=== PATIENT | male | born 1940 | race Caucasian/White ===

== ENCOUNTER 2019-05-28 06:46 | Day surgery (SDC) | payer MEDICARE, OTHER, SELFPAY ==
[2019-05-25 12:41] VITALS: BMI 27.6
--- NOTE | 2019-05-25 12:45 | ECG_ITS ---
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 [email or web address]
--- NOTE | 2019-05-25 13:06 | ANES.PREANES ---
Pre-Anesthetic Assessment Pre-Anesthetic Assessment: Height/Weight: Height 1.73 m Weight 82.554 kg Proposed Procedure: Operation Date: 05/28/19 08:00 Proposed Procedures p Laparoscopic Inguinal Hernia Repair/possible open(Bilateral) - Caden Macias MD Social: Social History: No alcohol and No tobacco Exam: Pre-Anes Outpt Exam: alert, oriented x 3, clear to auscultation bilaterally and regular rate & rhythm Airway: Submandibular: WNL Cervical ROM: WNL MP: 2 Dentition: False CV/HEM: CV/HEM: CAD and MD : : None reported Hepatic: Hepatic: None reported GI: GI: GERD Metabolic: Metabolic: Hyperlipidemia Neuropsych: Neuropsych: Anxiety Anesthetic Plan: ASA status: III Anesthesia: Anesthesia Evaluation and General Risk of > 500 ml blood loss (7ml/kg in children): No PFSH Anesthesia PFSH: Medical History (Updated 05/25/19 @ 13:07 by Silvano Spear MD) Anxiety (Acute) Arthritis (Acute) Heart attack (Acute) History of fracture (Acute) Hypertension (Acute) Hypothyroidism (Acute) Severe hearing loss (Acute) Skin disease (Acute) Surgical History (Updated 05/25/19 @ 13:07 by Silvano Spear MD) History of appendectomy (Acute) History of shoulder replacement (Acute) History of tonsillectomy and adenoidectomy (Acute) History of umbilical hernia repair (Acute) Social History (Updated 05/25/19 @ 12:12 by Manda Londono) Smoking and tobacco status: former smoker Alcohol intake: never Substance/Drug Use: never Data Anesthesia Cardiac Studies: No Data to Display
[2019-05-28] VITALS (9 sets, daily range): BP systolic 138–162; BP diastolic 65–75; PULSE 75–80; RESP 15–20; TEMP 36.6–37.1; O2SAT 93–99
[2019-05-28] MEDS: sodium chloride 0.9% 1,000 ML 30 ML IV (07:54)
--- NOTE | 2019-05-28 10:55 | SUR.PHASEI ---
1049 PATIENT TO PACU VIA GURNEY AT THIS TIME FROM OR. RESPIRATIONS EVEN AND UNLABORED. PWD. 3 STABS TO ABDOMEN, CDI.
--- NOTE | 2019-05-28 11:00 | PM.OP ---
Operative Report Post-Operative Note: Date of procedure: 05/28/19 Preop Diagnosis: Bilateral reducible inguinal hernia Post-op diagnosis: same Post-op Findings: Bilateral indirect inguinal hernia Procedure Done: Laparoscopic total extraperitoneal repair of bilateral inguinal hernia with ultraPro 15 x 10 cm mesh x2 Pathology: none sent Anesthesia: general Estimated blood loss (mL): 20 Condition: stable Disposition: PACU Operative Report: Procedure: The patient was taken to the operating room. After IV antibiotic was administered, the abdomen was prepped and draped in a sterile manner. Using a 15 blade, a 1.0 cm transverse incision was made infraumbilically on the right side. Subcutaneous tissue was divided using electrocautery and the anterior rectus sheath divided using an 11 blade. The rectus muscle was retracted laterally and the extraperitoneal space identified. A 11 mm port was placed and 12 mm of pneumoperitoneum was created. A 10 mm 30? scope was introduced and the retrorectus space was opened using the camera up to the pubic symphysis and 5 mm ports were placed in the midline, one 2-fingerbreadths above the pubic symphysis and the other midway between these two ports under direct visualization. Blunt dissection was carried out to open up the tissue in the midline and to the pubic symphysis, which was identified. The dissection was then carried laterally on the right side where the iliopubic tract was identified. There was no femoral, obturator or direct hernia noted. The inferior epigastric artery was identified and dissection was carried posterior to it and laterally, the space was opened up to the level of the umbilicus superior to the anterior superior iliac spine. I then proceeded to dissect out the spermatic cord and the indirect hernial sac was reduced . I then moved to the other side and the dissection was then carried laterally on the left side where the iliopubic tract was identified. There was no femoral, obturator or direct hernia noted. The inferior epigastric artery was identified and dissection was carried posterior to it and laterally, the space was opened up to the level of the umbilicus superior to the anterior superior iliac spine. I then proceeded to dissect out the spermatic cord and the indirect hernial sac was reduced . 15 x 10cm Ultrapro mesh was rolled and introduced through the 10 mm port and then rolled laterally and apposed well against the abdominal wall to cover the myopectineal orifice completely and held in place with secure straps which was then repeated on the left side. 10 Cc of 0.5% Marcaine was infiltrated into the preperitoneal space. The extraperitoneal space was desufflated under direct visualization to ensure no slippage of hernial sac under the mesh. All ports were removed, the anterior rectus fascia at the infraumbilical port closed using figure of eight 0 Vicryl sutures, subcutaneous tissue approximated using 3-0 Vicryl sutures and skin at all three port sites were closed using running subcuticular 4-0 Monocryl sutures and Dermabond. 10 mL of 0.5% Marcaine was infiltrated at the port sites. The patient was stable throughout the procedure. Coding Level of Care Code Acute Inspector Outside Production for Arian Davis
[2019-05-28] MEDS: fentaNYL 50 mcg/mL INJ 2mL IVP ×2 (11:01→11:07)
--- NOTE | 2019-05-28 11:24 | SUR.PHASEI ---
1117 PATIENT TO OPS VIA GURNEY. A/OX3. RR EVEN AND UNLABORED. 3 STABS TO ABDOMEN, CDI.
[2019-05-28] MEDS: HYDROcodone-acetaminophen 5-325 mg Tablet 1 TAB PO (11:37)
--- NOTE | 2019-06-16 12:48 | PM.HPUD ---
H&P update H&P Update: DATE OF SURGERY/PROCEDURE: 05/28/19 DATE H&P PERFORMED: 05/11/19 H&P UPDATE INFORMATION: H&P completed within last 30 days and No changes to prior documentation PLANNED PROCEDURE: Operation Date: 05/28/19 08:30 Proposed Procedures p Laparoscopic Inguinal Hernia Repair/possible open(Bilateral) - Caden Macias MD Full H&P Perinent History: Medical/Surgical History: Medical History (Updated 06/12/19 @ 15:29 by Caden Macias MD) Anxiety (Acute) Arthritis (Acute) Heart attack (Acute) History of fracture (Acute) Hypertension (Acute) Hypothyroidism (Acute) Severe hearing loss (Acute) Skin disease (Acute) Social History: Social History Smoking and tobacco status: former smoker Alcohol intake: never
== END 2019-05-28 12:24 | disposition home or self-care (01) ==
PROVIDERS: Visit Provider Surgery
PROC: (CPT 49650; principal; 2019-05-28 08:30)
DX: K40.20 Bilateral inguinal hernia, without obstruction or gangrene, not specified as recurrent (principal); E03.9 Hypothyroidism, unspecified; I10 Essential (primary) hypertension; I25.10 Atherosclerotic heart disease of native coronary artery without angina pectoris; Z82.49 Family history of ischemic heart disease and other diseases of the circulatory system; Z83.3 Family history of diabetes mellitus; Z87.891 Personal history of nicotine dependence; Z79.82 Long term (current) use of aspirin; Z79.891 Long term (current) use of opiate analgesic; I25.2 Old myocardial infarction; E78.5 Hyperlipidemia, unspecified; F41.9 Anxiety disorder, unspecified; M19.90 Unspecified osteoarthritis, unspecified site
CPT/HCPCS: 49505; 12345; 93005; 99221; J0690; J2704; J3010; J3490; J7030

== ENCOUNTER → 2019-06-05 10:27 | Outpatient (BNVA) | payer MEDICARE, OTHER, SELFPAY | PROVIDERS: PCP Nurse Practitioner; Visit Provider Otolaryngology | DX: R42 Dizziness and giddiness (principal); H91.90 Unspecified hearing loss, unspecified ear | CPT/HCPCS: 99213; 99214 ==

== ENCOUNTER 2019-07-22 23:30 | Emergency (ER) | payer MEDICARE, OTHER, SELFPAY ==
[2019-07-22 23:40] VITALS: BP 153/77; PULSE 111; RESP 18; TEMP 36.9; O2SAT 96; BMI 27.9
== END 2019-07-22 23:50 | disposition left against medical advice (07) ==
LOC: ER 23:58
PROVIDERS: Emergency Provider Emergency Medicine; PCP Family Medicine
DX: I10 Essential (primary) hypertension (principal); Z53.21 Procedure and treatment not carried out due to patient leaving prior to being seen by health care provider
CPT/HCPCS: 99281; 99282

== ENCOUNTER 2019-11-16 07:23 | Outpatient (CLI) | payer MEDICARE, OTHER, SELFPAY ==
--- NOTE | 2019-11-16 08:00 | USCV_ITS ---
Landry Foster Age: 79 Gender: M : 1940 Exam Date: 11/16/2019 07:25 Ordering Phys: Guanako Munoz MD ([email or web address]) Technologist: Katia Campos [place] [facility] [place] STENOS[place] Risk Factors: Previous Vascular Surgery: Right Brachial BP: / Left Brachial BP: / Right Left Velocity (cm/s) Spectral Plaque Velocity (cm/s) Spectral Plaque Syst/Diast Broadening Syst/Diast Broadening 73.90/ 14.30 Prox CCA 71.70 / 15.40 92.60/ 14.30 Mid CCA 80.50 / 14.30 70.60/ 17.60 Distal CCA 88.20 / 13.20 81.60/ 11.00 Prox ICA 169.10/ 32.40 52.90/ 15.40 Mid ICA 107.90/ 23.40 102.50/35.30 Distal ICA 82.80 / 34.20 100.30 ECA 99.20 1.11 ICA/CCA 2.10 Antegrade Vertebral Antegrade 77.20/ 15.40 cm/s 72.00/ 7.20 cm/s Tri Subclavian Tri FINDINGS Minimal plaques of the right bifurcation and proximal carotid artery. Moderate to heavy heterogeneous plaques at the left bifurcation and proximal internal carotid artery Thickening in the common carotid arteries bilaterally. Antegrade flow in the vertebral arteries bilaterally. Normal Doppler flow velocities in the external carotid arteries bilaterally CONCLUSIONS Moderate to heavy heterogeneous plaques at the left bifurcation and proximal internal carotid arterywith velocity elevation consistent with 50-79% stenosis. Minimal plaques of the right bifurcation and proximal carotid artery. Compared to the study from 10/27/2018, there may not be a significant change Dr Guanako Munoz MD [facility] (Electronically Signed) Final Date: 16 November 2019 19:27 S
== END 2019-11-16 07:24 | disposition home or self-care (01) ==
LOC: US 07:25
PROVIDERS: PCP Family Medicine; Visit Provider Internal Medicine Cardiovascular Disease
DX: I65.23 Occlusion and stenosis of bilateral carotid arteries (principal)
CPT/HCPCS: 93880

== ENCOUNTER 2020-01-31 08:51 | Outpatient (CLI) | payer MEDICARE, OTHER, SELFPAY ==
[2020-01-31] MEDS: iohexol 300 mg/mL 50 mL Btl PO (09:39)
--- NOTE | 2020-01-31 10:30 | CT_ITS ---
WS: [id number] CT ABDOMEN AND PELVIS WITH CONTRAST HISTORY: abdominal pain TECHNIQUE: Imaging performed of the abdomen and pelvis with IV contrast. Single phase imaging of the abdomen. Coronal and sagittal reformats are submitted. All CT scans at [facility] use at least one of these dose optimization techniques: automated exposure control; mA and/or kV adjustment per patient size (includes targeted exams where dose is matched to clinical indication); or iterativ e reconstruction. IV CONTRAST: Omnipaque 300; 95 mL IV. Oral contrast: Yes. DLP: 1183.16 mGycm COMPARISON: None available. Lower thorax: Chronic emphysema the lung bases. No nodules or pneumonia. Heart size is normal. Small hiatal hernia. Oral contrast in the distal esophagus. Liver/biliary system: Normal size liver. There is mild central biliary duct dilatation. Common bile d uct is mildly dilated up to 9.2 mm. No mass at the pancreatic head or calcification. Gallbladder: Normal. No gallstones or wall thickening. No pericholecystic fluid. Pancreas: Atrophied pancreas. No mass. Spleen: Normal size with granulomata. Adrenal glands: Normal. Right kidney: Normal. Left kidney: Normal. Aorta: Moderate atherosclerosis of aorta. Significant amount of calcium at the aortic bifurcation and the proximal iliac arteries. Lymphadenopathy: None. Free fluid: None. GI tract: There is significant fecal retention and obstipation throughout the colon. No obstructing l esion or soft tissue mass identified. There are numerous diverticula in the descending and sigmoid co kiah. There is some very minimal rectal wall thickening which may be due to peristalsis or nondistenti on. There are additional high density foci within the colon at which are probably medicinal. Prior ap pendectomy. Abdominal wall: Very small abdominal wall hernia to the RIGHT of midline at the level of the umbilicu s. No herniation of GI tract. LEFT inguinal canal is patent containing fat only. Pelvis: No free fluid in the pelvis. Urinary bladder is well distended. Bones: Degenerative disc disease and osteophytes. CT/CT abdomen pelvis w con* [id number] IMPRESSION: 1. Severe diffuse constipation without focal obstructing lesion identified by CT. 2. Distal colonic diverticulosis without acute diverticulitis. 3. Moderate atherosclerosis aorta and common iliac arteries. 4. Mild central biliary dilatation with a mildly prominent common bile duct. N o pancreatic head mass or calcification identified to explain the dilatation.
[2020-01-31 10:55] LABS: Blood Urea Nitrogen 9 mg/dL (8-23)
[2020-01-31] MEDS: iohexol 300 mg/mL 100 mL Btl IV (11:01)
== END 2020-01-31 08:52 | disposition home or self-care (01) ==
LOC: RADWPI 08:58
PROVIDERS: PCP Family Medicine; Visit Provider Surgery
DX: K92.1 Melena (principal); R10.9 Unspecified abdominal pain; K59.00 Constipation, unspecified; K57.90 Diverticulosis of intestine, part unspecified, without perforation or abscess without bleeding; I70.0 Atherosclerosis of aorta; I70.8 Atherosclerosis of other arteries
CPT/HCPCS: 74177; 82565; 84520; Q9967

== ENCOUNTER 2020-02-21 22:25 | Emergency (ER) | payer MEDICARE, OTHER, SELFPAY ==
[2020-02-21 22:33] VITALS: BP 201/82; PULSE 102; RESP 18; TEMP 36.7; O2SAT 97; BMI 27.3
[2020-02-21 22:43] VITALS: BP 198/91; PULSE 103; RESP 18; O2SAT 97
--- NOTE | 2020-02-21 22:47 | ECG_ITS ---
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 Measurements Intervals [place] Rate: 100 P: 118 CT: 209 QRS: 44 QRSD: 122 T: -5 QT: 324 QTc: 418 Interpretive Statements SINUS TACHYCARDIA LEFT VENTRICULAR HYPERTROPHY AND ST-T CHANGE [VOLTAGE CRITERIA PLUS ST/T ABNORMALITY] Compared to ECG 05/25/2019 13:14:12 Left ventricular hypertrophy now present ST (T wave) deviation now present Sinus rhythm no longer present Myocardial infarct finding no longer present Electronically Signed On 02-22-2020 20:37:20 CDT by Kaylin Hall M.D. [id number]
--- NOTE | 2020-02-21 22:47 | XR_ITS ---
WS: [id number] Portable AP upright chest, 02/21/2020 Clinical Data: Weakness Comparison: PA and lateral chest, 04/25/2018. Findings: No nodules, masses or effusions are seen. The heart is normal. The pulmonary vascularity is not increased. No pneumonia or pneumothorax is seen. The aortic arch and descending aorta show calci fication and tortuosity. There are monitor leads on the chest wall. The patient has bilateral total s houlder prostheses. XR/XR chest 1V portable [id number] Impression: Atherosclerosis.
--- NOTE | 2020-02-21 22:55 | W.ED.GENADLT ---
HPI - General Adult General: Chief complaint: General Medical Stated complaint: blood pressure Time Seen by Provider: 02/21/20 22:43 Source: patient and family Mode of arrival: ambulatory Limitations: no limitations History of Present Illness: HPI narrative: Mr. Foster is a very nice 80-year-old male who comes in complaining of his blood pressure being elevated. Patient has a history of hard to control high blood pressure. Per the device of his doctor previously he did take a 0.1 clonidine p.o. before coming into the hospital but this was approximately 4 hours ago. Patient says he has a mild headache but it was not sudden onset thunderclap-like and he denies any dizziness, visual changes or any other neurologic problem. Patient denies any chest pain, shortness of breath, leg swelling or edema, fever chills or other complaint. He states solely because his blood pressure was elevated and did not go down with the clonidine which she had has always done in the past he felt that he should come to the hospital to be evaluated. Currently he says other than the minimal headache that he has he has no other symptoms. Associated symptoms: Reports headache(s); Deny chest pain, confusion, diaphoresis, dyspnea, malaise, nausea, rash, palpitations, syncope or vomiting Review of Systems Const: Denies: fever(s), chills, body aches, fatigue, malaise or diaphoresis Eyes: Denies: change in vision, blurry vision, photophobia, eye discomfort, eye discharge, eye redness or yellow eyes ENMT: Denies: throat pain, odynophagia, hoarseness, swelling of lips/tongue, ear or mastoid pain, ear discharge, change in hearing or nasal discharge Card: Denies: chest pain, palpitations, irregular heart rhythm, edema, lightheadedness, syncope, pre-syncope, dyspnea on exertion or orthopnea Resp: Denies: dyspnea, productive cough, non-productive cough, wheezing, hemoptysis or chest congestion GI: Denies: abdominal pain, nausea, vomiting, hematemesis, coffee ground emesis, heartburn, diarrhea, constipation, GI cramping, hematochezia or melena : Denies: flank pain, dysuria, urinary frequency, urinary urgency or hematuria Musc: Denies: neck pain, back pain, extremity pain, extremity swelling, joint pain, joint swelling, joint redness, joint warmth or joint stiffness Skin/Breast: Denies: rash, pruritus, erythema, skin pain or skin tenderness Neuro: Reports: headache(s); Denies: numbness in extremities, weakness in extremities, sensory changes, lack of coordination, difficulty walking, dizziness, vertigo, confusion, Slurred speech present or seizure-like activity Eddie/Lymph: Denies: easy bruising, easy bleeding, petechiae, purpura or enlarged lymph nodes All/Imm: Denies: urticaria, throat swelling, tongue swelling, facial swelling or acute wheezing PFSH ED PFSH: Medical History Anxiety Aortic stenosis Arrhythmia Arthritis Bilateral carotid artery stenosis Heart attack History of fracture Hypertension Hypothyroidism Pulmonary hypertension Severe hearing loss Skin disease Surgical History History of appendectomy History of shoulder replacement History of tonsillectomy and adenoidectomy History of umbilical hernia repair S/P bilateral inguinal hernia repair Status post colonoscopy Family History Other Diabetes Hypertension Denies family history of Anesthesia complication Bleeding disorder Social History Smoking and tobacco status: former smoker Alcohol intake: never Household members: spouse Marital status: Current occupational status: retired History of recent travel: No Physical Exam Const: COMMON NORMALS: no acute distress, patient oriented x3, no limitations and alert GENERAL APPEARANCE: cooperative HENMT: COMMON NORMALS: normocephalic, atraumatic, external ears normal, EAC's normal and Normal external nose present HEAD & SCALP: normal to inspection, normocephalic and atraumatic FACE & SINUS: normal facial exam and face symmetric NOSE: Normal external nose present and Normal nares present EXTERNAL EAR: Yes external ears normal EXTERNAL AUDITORY CANAL: EAC's normal MOUTH: Normal oral and palatal mucosa present, lip normal and tongue normal Eye: COMMON NORMALS: Equal, round and reactive pupils present and conjunctivae normal GENERAL EYE: appearance normal, both eyes and all related structures ALIGNMENT: Yes alignment normal PERIORBITAL: periorbital findings normal EYELID: eyelids normal CONJUNCTIVA: Yes conjunctivae normal SCLERA: sclerae normal PUPIL: Yes Equal, round and reactive pupils present Neck/C-Spine: COMMON NORMALS: full ROM, no lymphadenopathy, supple, no meningeal signs and no JVD GENERAL: Yes normal visual inspection and Yes trachea midline Chest: COMMONS NORMALS: normal inspection of the chest and normal palpation of entire chest wall Resp: COMMON NORMALS: normal respiratory effort, No retractions, No use of accessory muscles and clear to auscultation bilaterally EFFORT & INSPECTION: Yes able to speak in complete sentences and Yes symmetric chest movement AUSCULTATION: clear to auscultation bilaterally, no crackles, no rales, no rhonchi and no wheezes Cardio: COMMON NORMALS: no JVD, regular rate, regular rhythm, S1 normal heart sound present and S2 normal heart sound present RATE: regular rate RHYTHM: regular rhythm HEART SOUNDS: S1 normal heart sound present, S2 normal heart sound present, no click, no gallops, no murmurs and no rubs GI: COMMON NORMALS: Soft to palpation and No hepatosplenomegaly present PALPATION: Yes Soft to palpation, No Tenderness to palpation present (GI), No Guarding due to palpation present (GI), No Rigid due to palpation, Yes No hepatosplenomegaly present, No Hernia present, No Palpable mass present and No Pulsatile mass present : COMMON NORMALS: Yes no CVA tenderness BLADDER/KIDNEY EXAM: Yes no CVA tenderness Back/Pelvis: COMMON NORMALS: no CVA tenderness, thoracic and lumbar spine normal to inspection, no thoracic nor lumbar tenderness and thoraco-lumbar ROM normal Extremity: COMMON NORMALS: normal to inspection, full ROM, capillary refill normal, no joint enlargement, no clubbing, cyanosis or edema and no calf tenderness Neuro: COMMON NORMALS: patient oriented x3, CN's II-XII intact bilaterally, moves all extremities, no focal motor deficits and no sensory deficits noted SENSORIUM/ORIENTATION: Yes alert MENINGEAL SIGNS: Yes no meningeal signs SPEECH: speech normal Psych: COMMON NORMALS: mental status grossly normal, Normal thought process present, cooperative, normal affect, speech normal and activity/motor behavior normal SPEECH: Yes normal speech THOUGHT PROCESS: Normal thought process present Skin: COMMON NORMALS: no rashes or lesions noted, turgor normal, no jaundice, no petechiae and no mottling GENERAL SKIN EXAM: no rashes or lesions noted and turgor normal Course Vital Signs: Vital signs: Vital Signs Temperature 98.1 F 10/01/20 22:33 Pulse Rate 61 02/22/20 01:03 Respiratory Rate 15 02/22/20 01:03 Blood Pressure 126/61 02/22/20 01:03 Pulse Oximetry 97 02/22/20 01:03 MDM - General Adult MDM Narrative: Medical decision making narrative: Mr. Foster is a very nice 80-year-old male who comes in concerned about his high blood pressure. He believes he may have overexerted himself outside today and that caused his blood pressure to be elevated. He has never had chest pain, blurry vision, shortness of breath, edema or any other cardiac sounding complaint. Nonetheless because of the abnormal EKG and first elevated troponin I kept him for a second. His second troponin has gone up almost 6 points. Per the hospital chest pain pathway he needs either a 6-hour troponin or to be admitted for observation but this patient is never had chest pain. This could be a chronic elevation for him secondary to his high blood pressure. I have talked at length with the patient and his family about these findings. I have informed him I believe it would be safer to keep him for observation or at least a 6-hour troponin but he refuses. He states he has things to do and he feels fine and that his blood pressure is improved he wants to go home. I have made him aware that he is at risk of or severe permanent disability by leaving without complete evaluation but despite this the patient declines and wants to go home. He understands to be leaving AGAINST MEDICAL ADVICE and he does agree to return of his symptoms change or he develops any symptoms but at this time he is adamant he wants to go home. Patient clearly has the capacity to make this decision and has asked me multiple questions and reason that his mind that he is feeling well enough to go home without further evaluation. The patient has been warned but he has been welcomed to return. Lab Data: Labs: Lab Results 02/21/20 02/21/20 02/21/20 Range/Units 23:00 23:00 23:00 WBC 9.9 (4.0-10.0) 10^3/ uL RBC 3.81 L (4.1-5.3) 10^6/u L Hgb 11.7 (11.7-16.6) g/dL Hct 36.0 L (42.0-52.0) % MCV 94.5 H (80-94) fL MCH 30.7 (28.0-34.0) pg MCHC 32.5 (30.0-36.0) g/dL RDW 13.2 (12.1-15.1) % Plt Count 321 (130-400) 10^3/c mm MPV 10.5 H (7.4-10.4) fL Neut % (Auto) 78.6 % Lymph % (Auto) 10.0 % [place] % (Auto) 6.8 % Eos % (Auto) 3.5 % Baso % (Auto) 0.9 % Neut # (Auto) 7.80 H (1.8-7.7) 10^3/u L Lymph # (Auto) 1.0 (0.8-4.8) 10^3/u L [place] # (Auto) 0.7 (0.2-0.9) 10^3/u L Eos # (Auto) 0.4 (0.0-0.8) 10^3/u L Baso # (Auto) 0.1 (0.0-0.1) 10^3/u L Nucleated RBC % (a uto) 0 % Nucleated RBCs # 0.0 /100WBC Sodium 128 L (136-145) mmol/L Potassium 5.0 (3.5-5.1) mmol/L Chloride 94 L (98-107) mmol/L Carbon Dioxide 24 (22-29) mmol/L Anion Gap 15.0 (5-19) BUN 13 (8-23) mg/dL Creatinine 1.0 (0.7-1.2) mg/dL GFR Calculation Not Reportable Glucose 126 H (65-115) mg/dL Calculated Osmolal ity 268 L (285-295) mOsm/k g Calcium 9.7 (8.5-10.5) mg/dL Magnesium 2.2 (1.7-2.3) mg/dL Total Bilirubin 0.2 (0.15-1.2) mg/dL AST 32 (0-40) U/L ALT 21 (0-41) U/L Alkaline Phosphata se 121 (40-130) IU/L Troponin T Baselin e 35 H (0-15) ng/L Troponin T 120 Min emma (0-15) ng/L Delta Troponin T (0-10) ABS# Total Protein 7.4 (6.6-8.7) g/dL Albumin 4.9 (3.5-5.2) g/dL Globulin 2.5 (1.3-4.6) g/dL Urine Color (Yellow) Urine Appearance (CLEAR) Urine pH (5-7) Ur Specific Gravit y (1.005-1.030) Urine Protein (Negative) Urine Glucose (UA) (Normal) Urine Ketones (Negative) Urine Blood (Negative) Urine Nitrate (Negative) Urine Bilirubin (Negative) Urine Urobilinogen (Negative) mg/dL Ur Leukocyte Bailey ase (Negative) 02/21/20 02/22/20 Range/Units 23:22 00:27 WBC (4.0-10.0) 10^3/ uL RBC (4.1-5.3) 10^6/u L Hgb (11.7-16.6) g/dL Hct (42.0-52.0) % MCV (80-94) fL MCH (28.0-34.0) pg MCHC (30.0-36.0) g/dL RDW (12.1-15.1) % Plt Count (130-400) 10^3/c mm MPV (7.4-10.4) fL Neut % (Auto) % Lymph % (Auto) % [place] % (Auto) % Eos % (Auto) % Baso % (Auto) % Neut # (Auto) (1.8-7.7) 10^3/u L Lymph # (Auto) (0.8-4.8) 10^3/u L [place] # (Auto) (0.2-0.9) 10^3/u L Eos # (Auto) (0.0-0.8) 10^3/u L Baso # (Auto) (0.0-0.1) 10^3/u L Nucleated RBC % (a uto) % Nucleated RBCs # /100WBC Sodium (136-145) mmol/L Potassium (3.5-5.1) mmol/L Chloride (98-107) mmol/L Carbon Dioxide (22-29) mmol/L Anion Gap (5-19) BUN (8-23) mg/dL Creatinine (0.7-1.2) mg/dL GFR Calculation Glucose (65-115) mg/dL Calculated Osmolal ity (285-295) mOsm/k g Calcium (8.5-10.5) mg/dL Magnesium (1.7-2.3) mg/dL Total Bilirubin (0.15-1.2) mg/dL AST (0-40) U/L ALT (0-41) U/L Alkaline Phosphata se (40-130) IU/L Troponin T Baselin e (0-15) ng/L Troponin T 120 Min emma 40.99 H (0-15) ng/L Delta Troponin T 5.99 (0-10) ABS# Total Protein (6.6-8.7) g/dL Albumin (3.5-5.2) g/dL Globulin (1.3-4.6) g/dL Urine Color Straw (Yellow) Urine Appearance Clear (CLEAR) Urine pH 7 (5-7) Ur Specific Gravit y 1.005 (1.005-1.030) Urine Protein Neg (Negative) Urine Glucose (UA) Norm (Normal) Urine Ketones Negative (Negative) Urine Blood Neg (Negative) Urine Nitrate Negative (Negative) Urine Bilirubin Neg (Negative) Urine Urobilinogen Norm (Negative) mg/dL Ur Leukocyte Bailey ase Negative (Negative) Imaging Data^: CXR: Attestation: I personally reviewed and interpreted this imaging study as follows: My impression: No acute cardiopulmonary findings. EKG Data^: EKG 1: Attestation: I personally reviewed and interpreted this EKG as follows: EKG interpretation date: 02/21/20 EKG interpretation time: 21:47 Interpretation: Sinus tachycardia at 100 beats a minute, left ventricular hypertrophy with strain pattern, unchanged from previous. EKG 2: Attestation: I personally reviewed and interpreted this EKG as follows: EKG interpretation date: 02/22/20 EKG interpretation time: 23:28 Interpretation: Normal sinus rhythm at 63 beats a minute, LVH, nonspecific ST-T wave changes unchanged from previous. Discharge Plan Discharge Patient Disposition: Home Clinical Impression: Hyponatremia Hypertension Qualifiers: Hypertension type: essential hypertension Qualified Code(s): I10 - Essential (primary) hypertension Condition: Stable Prescriptions: No Action carvedilol 3.125 mg tablet 3.125 mg PO BID 30 Days Qty: 60 RF: 5 hydrocodone-acetaminophen 10-325 mg tablet 1 tab PO Q4H PRN (Reason: pain) RF: 0 morphine 15 mg tablet 15 mg PO Q4H PRN (Reason: pain) RF: 0 lactulose 10 gram/15 mL solution 20 gm PO BID Qty: 946 RF: 2 lisinopril 40 mg tablet 40 mg PO DAILY Qty: 90 RF: 3 amitriptyline 150 mg tablet 150 mg PO BEDTIME RF: 0 nifedipine 90 mg tablet extended release 90 mg PO DAILY RF: 0 simvastatin 10 mg tablet 10 mg PO BEDTIME RF: 0 aspirin [Aspirin Low Dose] 81 mg Tablet,Delayed Release (Dr/Ec) 81 mg PO DAILY RF: 0 citalopram 20 mg tablet 20 mg PO BEDTIME RF: 0 tamsulosin 0.4 mg capsule 0.4 mg PO BEDTIME RF: 0 levothyroxine 125 mcg tablet 125 mcg PO DAILY RF: 0 mupirocin 2 % Ointment 1 applic TOPICAL BID RF: 0 furosemide 20 mg tablet 20 mg PO DAILY RF: 0 cyanocobalamin (vitamin B-12) [Vitamin B-12] 2,000 mcg Tablet Extended Release 20,000 mcg PO DAILY RF: 0 lorazepam 1 mg tablet 1 mg PO PRN PRN (Reason: Anxiety) RF: 0 hydrocodone-acetaminophen [Croghan] 5-325 mg tablet 1 tab PO Q6H Qty: 20 RF: 0 docusate sodium [Colace] 100 mg capsule 100 mg PO BID Qty: 30 RF: 0 Discharge Orders: Discharge Order (Routine); Ordered 02/22/20 Ordered By: Kasia Acosta Referrals: Robert Snell DO [Primary Care Provider] - 1-3 days Kaylin Hall MD [Physician] - 1-3 days Discharge Diet: Low Salt Discharge Activity: Increase activity as tolerated Patient Instructions: Hyponatremia (ED), Hypertension (ED) Activity Restrictions/Additional Instructions: You're leaving AGAINST MEDICAL ADVICE and are at risk for or severe permanent disability by doing so. You are more than welcome to return at any time for recheck and for further evaluation and care suture change you change your mind. Your cardiac enzymes are elevated and your risks of or severe permanent disability by leaving without further evaluation of your heart. If you change your mind, you develop chest pain or shortness of breath, you pass out or nearly pass out, or you have any other concerns or simply change your mind you are more than welcome to return to the ER for recheck. Be certain to follow-up with your doctor as soon as possible for recheck. Limit your free water intake to less than 2 L a day and be certain to follow-up with your doctor as soon as possible for recheck of your sodium as well. Stand Alone Forms: Against Medical Advice Coding Level of Care Code ED Labor And Delivery Registered Nurse for Chg Fwd Exam Comprehensive
[2020-02-21] MEDS: acetaminophen 500 mg Tablet 1000 MG PO (22:59)
[2020-02-21] MEDS: labetalol 5 mg/mL SDV 20mL 10 MG IVP (22:59)
[2020-02-21 23:11] LABS: Basophils # 0.1 10^3/uL (0.0-0.1); Basophils % 0.9 %; Eosinophils # 0.4 10^3/uL (0.0-0.8); Eosinophils % 3.5 %; Hemoglobin 11.7 g/dL (11.7-16.6); Mean Corpuscular HGB Conc 32.5 g/dL (30.0-36.0); Mean Corpuscular Hemoglobin 30.7 pg (28.0-34.0); Mean Corpuscular Volume 94.5 fL (80-94); Mean Platelet Volume 10.5 fL (7.4-10.4); Monocytes # 0.7 10^3/uL (0.2-0.9); Monocytes % 6.8 %; Neutrophils % 78.6 %; Nucleated Red Blood Cells % 0 %; Platelet Count 321 10^3/cmm (130-400); Red Blood Count 3.81 10^6/uL (4.1-5.3); Red Cell Distribution Width 13.2 % (12.1-15.1); White Blood Count 9.9 10^3/uL (4.0-10.0)
[2020-02-21 23:18] VITALS: BP 164/67; PULSE 77; RESP 18; O2SAT 97
[2020-02-21 23:34] VITALS: BP 179/84; PULSE 70; RESP 20; O2SAT 97
[2020-02-21 23:38] LABS: Add Urine Microscopic? NO
[2020-02-21 23:40] LABS: Alanine Aminotransferase 21 U/L (0-41); Albumin Level 4.9 g/dL (3.5-5.2); Alkaline Phosphatase 121 IU/L (40-130); Aspartate Amino Transferase 32 U/L (0-40); Blood Urea Nitrogen 13 mg/dL (8-23); Calcium 9.7 mg/dL (8.5-10.5); Carbon Dioxide 24 mmol/L (22-29); Chloride 94 mmol/L (98-107); Creatinine Clr Calc Pharmacy 61.4157; Globulin 2.5 g/dL (1.3-4.6); Glucose 126 mg/dL (65-115); Magnesium 2.2 mg/dL (1.7-2.3); Osmolality Calculated 268 mOsm/kg (285-295); Sodium 128 mmol/L (136-145); Total Bilirubin 0.2 mg/dL (0.15-1.2); Total Protein 7.4 g/dL (6.6-8.7)
[2020-02-21 23:42] LABS: Troponin(5th) Baseline 35 ng/L (0-15)
[2020-02-21 23:55] LABS: Bilirubin Urine Neg (Negative); Blood Urine Neg (Negative); Glucose Urine UA Norm (Normal); Ketones Urine Negative (Negative); Leukocyte Esterase Urine Negative (Negative); Nitrate Urine Negative (Negative); Protein Urine Neg (Negative); Specific Gravity, Urine 1.005 (1.005-1.030); Urine Appearance Clear (CLEAR); Urine Color Straw (Yellow); Urobilinogen Urine Norm (Negative); pH Urine 7 (5-7)
[2020-02-21 23:59] VITALS: BP 150/66; PULSE 68; RESP 17; O2SAT 97
[2020-02-22 00:37] VITALS: BP 137/72; PULSE 60; RESP 16; O2SAT 96
--- NOTE | 2020-02-22 00:47 | ECG_ITS ---
[facility] Test Date: 2020-02-21 Pat Name: Landry Foster Department: Room: Gender: Male [employer]: : 1940 Requested By: Kasia Martinez Order Number: [id number] Christy MD: Kaylin Hall M.D. Measurements Intervals Hospers Rate: 63 P: 39 VA: 198 QRS: 50 QRSD: 121 T: 69 QT: 394 QTc: 405 Interpretive Statements SINUS RHYTHM MODERATE INTRAVENTRICULAR CONDUCTION DELAY [110+ ms QRS DURATION] Compared to ECG 02/21/2020 21:47:09 Intraventricular conduction delay now present Sinus tachycardia no longer present Left ventricular hypertrophy no longer present ST (T wave) deviation no longer present Electronically Signed On 02-22-2020 20:39:24 CDT by Kaylin Hall M.D. [id number]
[2020-02-22 00:56] LABS: Troponin 5 2HR 40.99 ng/L (0-15); Troponin 5 2HR Delta 5.99 ABS# (0-10)
[2020-02-22 01:03] VITALS: BP 126/61; PULSE 61; RESP 15; O2SAT 97
== END 2020-02-22 01:27 | disposition home or self-care (01) ==
PROVIDERS: Emergency Provider Emergency Medicine; PCP Family Medicine
DX: I10 Essential (primary) hypertension (principal); E87.1 Hypo-osmolality and hyponatremia; Z79.82 Long term (current) use of aspirin; Z87.891 Personal history of nicotine dependence
CPT/HCPCS: 12345; 71045; 80053; 81003; 83735; 84484; 85025; 93005; 96374; 99283; 99284; J3490

== ENCOUNTER 2020-02-23 14:04 | Emergency (ER) | payer MEDICARE, OTHER, SELFPAY ==
[2020-02-23 14:37] VITALS: BP 152/80; PULSE 89; RESP 18; TEMP 36.7; O2SAT 97; BMI 26.6
[2020-02-23 15:41] LABS: Basophils # 0.1 10^3/uL (0.0-0.1); Basophils % 0.9 %; Eosinophils # 0.1 10^3/uL (0.0-0.8); Eosinophils % 1.5 %; Hematocrit 33.2 % (42.0-52.0); Hemoglobin 11.1 g/dL (11.7-16.6); Lymphocytes # 1.3 10^3/uL (0.8-4.8); Mean Corpuscular HGB Conc 33.4 g/dL (30.0-36.0); Mean Corpuscular Hemoglobin 30.7 pg (28.0-34.0); Mean Platelet Volume 9.5 fL (7.4-10.4); Monocytes # 0.5 10^3/uL (0.2-0.9); Monocytes % 6.3 %; Neutrophils # 6.01 10^3/uL (1.8-7.7); Nucleated Red Blood Cells % 0 %; Platelet Count 309 10^3/cmm (130-400); Red Blood Count 3.61 10^6/uL (4.1-5.3); Red Cell Distribution Width 13.1 % (12.1-15.1)
[2020-02-23 15:59] LABS: Alanine Aminotransferase 17 U/L (0-41); Albumin Level 4.5 g/dL (3.5-5.2); Alkaline Phosphatase 109 IU/L (40-130); Anion Gap 15.5 (5-19); Aspartate Amino Transferase 28 U/L (0-40); Blood Urea Nitrogen 11 mg/dL (8-23); Calcium 9.5 mg/dL (8.5-10.5); Carbon Dioxide 22 mmol/L (22-29); Chloride 93 mmol/L (98-107); Globulin 2.7 g/dL (1.3-4.6); Glucose 127 mg/dL (65-115); Magnesium 2.1 mg/dL (1.7-2.3); Osmolality Calculated 263 mOsm/kg (285-295); Potassium 4.5 mmol/L (3.5-5.1); Sodium 126 mmol/L (136-145); Total Bilirubin 0.4 mg/dL (0.15-1.2); Total Protein 7.2 g/dL (6.6-8.7)
--- NOTE | 2020-02-23 16:27 | XRR_ITS ---
PROCEDURE INFORMATION: Exam: XR Chest, 1 View Exam date and time: 02/23/2020 4:28 PM Age: 80 years old Clinical indication: Shortness of breath; Additional info: SOB TECHNIQUE: Imaging protocol: XR of the chest Views: 1 view. COMPARISON: CR XR chest 1V portable [id number] 02/21/2020 10:50 PM FINDINGS: Lungs: Unremarkable. No consolidation. Pleural space: Unremarkable. No pleural effusion. No pneumothorax. Heart/Mediastinum: Unremarkable. No cardiomegaly. Bones/joints: Metallic arthroplasty is present in bilateral shoulders appearing stable since prior examination. Otherwise negative for acute bony abnormalities. XR/XR chest 1V portable [id number] IMPRESSION: No acute findings. Stable bilateral shoulder arthroplasties.
--- NOTE | 2020-02-23 16:34 | W.ED.GENADLT ---
Documented by User: Libia Higgins 02/23/20 16:34 HPI - General Adult General: Chief complaint: General Medical Stated complaint: aching in legs/blood pressure issues/trouble sleep Time Seen by Provider: 02/23/20 15:23 Source: patient Mode of arrival: ambulatory Limitations: no limitations PFSH ED PFSH: Medical History Anxiety Aortic stenosis Arrhythmia Arthritis Bilateral carotid artery stenosis Heart attack History of fracture Hypertension Hypothyroidism Pulmonary hypertension Severe hearing loss Skin disease Surgical History History of appendectomy History of shoulder replacement History of tonsillectomy and adenoidectomy History of umbilical hernia repair S/P bilateral inguinal hernia repair Status post colonoscopy Family History Other Diabetes Hypertension Denies family history of Anesthesia complication Bleeding disorder Social History Smoking and tobacco status: former smoker Alcohol intake: never Household members: spouse Marital status: Current occupational status: retired History of recent travel: No Course Vital Signs: Vital signs: Vital Signs Temperature 98.1 F 02/23/20 14:37 Pulse Rate 78 02/23/20 19:39 Respiratory Rate 18 02/23/20 19:39 Blood Pressure 193/150 02/23/20 19:39 Pulse Oximetry 97 02/23/20 19:39 MDM - General Adult Lab Data: Labs: Lab Results 02/23/20 02/23/20 Range/Units 15:35 15:35 WBC 8.0 (4.0-10.0) 10^3/ uL RBC 3.61 L (4.1-5.3) 10^6/u L Hgb 11.1 L (11.7-16.6) g/dL Hct 33.2 L (42.0-52.0) % MCV 92.0 (80-94) fL MCH 30.7 (28.0-34.0) pg MCHC 33.4 (30.0-36.0) g/dL RDW 13.1 (12.1-15.1) % Plt Count 309 (130-400) 10^3/c mm MPV 9.5 (7.4-10.4) fL Neut % (Auto) 75.0 % Lymph % (Auto) 16.0 % Canadian % (Auto) 6.3 % Eos % (Auto) 1.5 % Baso % (Auto) 0.9 % Neut # (Auto) 6.01 (1.8-7.7) 10^3/u L Lymph # (Auto) 1.3 (0.8-4.8) 10^3/u L Canadian # (Auto) 0.5 (0.2-0.9) 10^3/u L Eos # (Auto) 0.1 (0.0-0.8) 10^3/u L Baso # (Auto) 0.1 (0.0-0.1) 10^3/u L Nucleated RBC % (a uto) 0 % Nucleated RBCs # 0.0 /100WBC Sodium 126 L (136-145) mmol/L Potassium 4.5 (3.5-5.1) mmol/L Chloride 93 L (98-107) mmol/L Carbon Dioxide 22 (22-29) mmol/L Anion Gap 15.5 (5-19) BUN 11 (8-23) mg/dL Creatinine 1.1 (0.7-1.2) mg/dL GFR Calculation Not Reportable Glucose 127 H (65-115) mg/dL Calculated Osmolal ity 263 L (285-295) mOsm/k g Calcium 9.5 (8.5-10.5) mg/dL Magnesium 2.1 (1.7-2.3) mg/dL Total Bilirubin 0.4 (0.15-1.2) mg/dL AST 28 (0-40) U/L ALT 17 (0-41) U/L Alkaline Phosphata se 109 (40-130) IU/L Total Protein 7.2 (6.6-8.7) g/dL Albumin 4.5 (3.5-5.2) g/dL Globulin 2.7 (1.3-4.6) g/dL Discharge Plan Discharge Patient Disposition: Home Clinical Impression: Hyponatremia, Generalized body aches Condition: Stable Prescriptions: No Action carvedilol 3.125 mg tablet 3.125 mg PO BID 30 Days Qty: 60 RF: 5 hydrocodone-acetaminophen 10-325 mg tablet 1 tab PO Q4H PRN (Reason: pain) RF: 0 morphine 15 mg tablet 15 mg PO Q4H PRN (Reason: pain) RF: 0 lactulose 10 gram/15 mL solution 20 gm PO BID Qty: 946 RF: 2 lisinopril 40 mg tablet 40 mg PO DAILY Qty: 90 RF: 3 amitriptyline 150 mg tablet 150 mg PO BEDTIME RF: 0 nifedipine 90 mg tablet extended release 90 mg PO DAILY RF: 0 simvastatin 10 mg tablet 10 mg PO BEDTIME RF: 0 aspirin [Aspirin Low Dose] 81 mg Tablet,Delayed Release (Dr/Ec) 81 mg PO DAILY RF: 0 citalopram 20 mg tablet 20 mg PO BEDTIME RF: 0 tamsulosin 0.4 mg capsule 0.4 mg PO BEDTIME RF: 0 levothyroxine 125 mcg tablet 125 mcg PO DAILY RF: 0 mupirocin 2 % Ointment 1 applic TOPICAL BID RF: 0 furosemide 20 mg tablet 20 mg PO DAILY RF: 0 cyanocobalamin (vitamin B-12) [Vitamin B-12] 2,000 mcg Tablet Extended Release 20,000 mcg PO DAILY RF: 0 lorazepam 1 mg tablet 1 mg PO PRN PRN (Reason: Anxiety) RF: 0 hydrocodone-acetaminophen [[place]] 5-325 mg tablet 1 tab PO Q6H Qty: 20 RF: 0 docusate sodium [Colace] 100 mg capsule 100 mg PO BID Qty: 30 RF: 0 Discharge Orders: Discharge Order (Routine); Ordered 02/23/20 Ordered By: Jerry Sarmiento Referrals: Robert Snell DO [Primary Care Provider] - Discharge Diet: Regular Discharge Activity: Increase activity as tolerated Patient Instructions: Hyponatremia (ED) Activity Restrictions/Additional Instructions: Follow-up with medical provider as directed in about 5 days. Have your primary care physician recheck your sodium level. COVID testing was performed and sent to lab and results will be back in 2 to 3 days. Self quarantine for the next 3 days or up to 12 days pending on COVID testing results. Contact [facility] in 2 to 3 days to get results or [facility] will contact you with results. Take Tylenol for fevers. Drink plenty of fluids and stay hydrated. Symptom management with [id number] cough and nasal decongestant meds. Return to the ER or your medical provider if condition worsens. Please read and understand discharge instructions. If any questions, please ask. Discharge Date/Time: 02/23/20 19:40 Sign Out Sign Out Data: Patient Sign Out occurred on 02/23/20 at 17:02. Patient's care was discussed, and care was transferred from to CHRISTO Bowman. Coding Level of Care Code ED Corporate Planning Manager for Chg Fwd Exam Detailed Documented by User: CHRISTO Bowman 02/24/20 02:46 HPI - General Adult General: Chief complaint: General Medical Stated complaint: aching in legs/blood pressure issues/trouble sleep Time Seen by Provider: 02/23/20 15:23 History of Present Illness: HPI narrative: Patient is an 80-year-old male comes to the ED with body aches. Symptoms started approximately 2 to 3 days ago. He has a past medical history of hypertension, arrhythmia, pulmonary hypertension and aortic stenosis. Denies fever, chills, chest pain, cough, abdominal pain, nausea/vomiting, bladder or bowel symptoms. Associated symptoms: Reports headache(s); Deny chest pain, dyspnea, nausea, rash, palpitations or vomiting Review of Systems Const: Reports: body aches; Denies: fever(s), chills or fatigue Eyes: Denies: change in vision or eye discomfort ENMT: Denies: throat pain, odynophagia, nasal discharge or nasal congestion Card: Denies: chest pain, palpitations, edema, swelling of feet/ankles, dyspnea on exertion or orthopnea Resp: Denies: dyspnea, productive cough or non-productive cough GI: Denies: abdominal pain, nausea, vomiting, diarrhea, constipation or hematochezia : Denies: flank pain, difficulty urinating, dysuria or hematuria Musc: Denies: neck pain, back pain or extremity swelling Skin/Breast: Denies: rash or new lesions Neuro: Reports: headache(s); Denies: numbness in extremities or weakness in extremities PFS ED PFSH: Medical History Anxiety Aortic stenosis Arrhythmia Arthritis Bilateral carotid artery stenosis Heart attack History of fracture Hypertension Hypothyroidism Pulmonary hypertension Severe hearing loss Skin disease Surgical History History of appendectomy History of shoulder replacement History of tonsillectomy and adenoidectomy History of umbilical hernia repair S/P bilateral inguinal hernia repair Status post colonoscopy Family History Other Diabetes Hypertension Denies family history of Anesthesia complication Bleeding disorder Social History Smoking and tobacco status: former smoker Alcohol intake: never Household members: spouse Marital status: Current occupational status: retired History of recent travel: No Physical Exam Const: COMMON NORMALS: no acute distress, patient oriented x3, healthy appearing and alert GENERAL APPEARANCE: cooperative and comfortable HENMT: COMMON NORMALS: normocephalic HEAD & SCALP: normocephalic MOUTH: Normal oral and palatal mucosa present THROAT: posterior oropharynx normal and uvula midline Neck/C-Spine: COMMON NORMALS: supple GENERAL: Yes normal visual inspection Resp: COMMON NORMALS: normal respiratory effort, No retractions, No use of accessory muscles and clear to auscultation bilaterally AUSCULTATION: clear to auscultation bilaterally Cardio: COMMON NORMALS: regular rate, regular rhythm, S1 normal heart sound present, S2 normal heart sound present, No gallops present (Cardio), No clicks present (Cardio), No murmurs present (Cardio) and Peripheral pulses 2+ throughout RATE: regular rate RHYTHM: regular rhythm HEART SOUNDS: S1 normal heart sound present and S2 normal heart sound present PERIPHERAL PULSES: Peripheral pulses 2+ throughout GI: COMMON NORMALS: Normal to inspection, nondistended, normoactive bowel sounds present, Soft to palpation, non-tender and no masses PALPATION: Yes Soft to palpation : COMMON NORMALS: Yes no CVA tenderness BLADDER/KIDNEY EXAM: Yes no CVA tenderness Back/Pelvis: COMMON NORMALS: no CVA tenderness Neuro: COMMON NORMALS: patient oriented x3 SENSORIUM/ORIENTATION: Yes alert Course Vital Signs: Vital signs: Vital Signs Temperature 98.1 F 02/23/20 14:37 Pulse Rate 78 02/23/20 19:39 Respiratory Rate 18 02/23/20 19:39 Blood Pressure 193/150 02/23/20 19:39 Pulse Oximetry 97 02/23/20 19:39 MDM - General Adult MDM Narrative: Medical decision making narrative: Patient is an 80-year-old male who comes to the ED with generalized body aches. Denies any fever or chills, cough or shortness of breath. Patient is concerned about possible COVID exposure. Lungs are clear to auscultation bilaterally patient showing no signs of any respiratory distress. Sodium was 126 and the rest of CMP was unremarkable. Patient also had a hemoglobin of 11.1 and 2 days ago it was 11.7, rest of CBC was unremarkable. Chest x-ray showed no acute findings. [facility] COVID lab was performed and results are pending. Patient was given 1 L of IV normal saline. Patient was discharged diagnosed with hyponatremia and generalized body aches. He was told to follow-up with his PCP next 3 to 5 days to get sodium levels rechecked. Return to ED precautions given. Patient understood and agreed with plan. Lab Data: Attestation: I reviewed the patient's lab results. Labs: Lab Results 02/23/20 02/23/20 Range/Units 15:35 15:35 WBC 8.0 (4.0-10.0) 10^3/ uL RBC 3.61 L (4.1-5.3) 10^6/u L Hgb 11.1 L (11.7-16.6) g/dL Hct 33.2 L (42.0-52.0) % MCV 92.0 (80-94) fL MCH 30.7 (28.0-34.0) pg MCHC 33.4 (30.0-36.0) g/dL RDW 13.1 (12.1-15.1) % Plt Count 309 (130-400) 10^3/c mm MPV 9.5 (7.4-10.4) fL Neut % (Auto) 75.0 % Lymph % (Auto) 16.0 % Canadian % (Auto) 6.3 % Eos % (Auto) 1.5 % Baso % (Auto) 0.9 % Neut # (Auto) 6.01 (1.8-7.7) 10^3/u L Lymph # (Auto) 1.3 (0.8-4.8) 10^3/u L Canadian # (Auto) 0.5 (0.2-0.9) 10^3/u L Eos # (Auto) 0.1 (0.0-0.8) 10^3/u L Baso # (Auto) 0.1 (0.0-0.1) 10^3/u L Nucleated RBC % (a uto) 0 % Nucleated RBCs # 0.0 /100WBC Sodium 126 L (136-145) mmol/L Potassium 4.5 (3.5-5.1) mmol/L Chloride 93 L (98-107) mmol/L Carbon Dioxide 22 (22-29) mmol/L Anion Gap 15.5 (5-19) BUN 11 (8-23) mg/dL Creatinine 1.1 (0.7-1.2) mg/dL GFR Calculation Not Reportable Glucose 127 H (65-115) mg/dL Calculated Osmolal ity 263 L (285-295) mOsm/k g Calcium 9.5 (8.5-10.5) mg/dL Magnesium 2.1 (1.7-2.3) mg/dL Total Bilirubin 0.4 (0.15-1.2) mg/dL AST 28 (0-40) U/L ALT 17 (0-41) U/L Alkaline Phosphata se 109 (40-130) IU/L Total Protein 7.2 (6.6-8.7) g/dL Albumin 4.5 (3.5-5.2) g/dL Globulin 2.7 (1.3-4.6) g/dL Imaging Data^: CXR: Attestation: I personally reviewed and interpreted this imaging study as follows: Radiologist's impression: [address] [address] XRay Report Signed Patient: Landry Foster I Unit #: [id number] : 1940 Age/Sex: 80 / M ADM Date: 02/23/20 Loc: ER Room/Bed: Attending Dr: Ordering Provider/Ordering MD: Libia Higgins NP Date of Service: 02/23/20 Procedure(s): XR chest 1V portable [id number] Accession Number(s): [id number] Report Number: [id number] PROCEDURE INFORMATION: Exam: XR Chest, 1 View Exam date and time: 02/23/2020 4:28 PM Age: 80 years old Clinical indication: Shortness of breath; Additional info: SOB TECHNIQUE: Imaging protocol: XR of the chest Views: 1 view. COMPARISON: CR XR chest 1V portable [id number] 02/21/2020 10:50 PM FINDINGS: Lungs: Unremarkable. No consolidation. Pleural space: Unremarkable. No pleural effusion. No pneumothorax. Heart/Mediastinum: Unremarkable. No cardiomegaly. Bones/joints: Metallic arthroplasty is present in bilateral shoulders appearing stable since prior examination. Otherwise negative for acute bony abnormalities. XR/XR chest 1V portable [id number] IMPRESSION: No acute findings. Stable bilateral shoulder arthroplasties. Dictated By: David Bhatt Signed By: David Bhatt Signed Date/Time: 02/23/201757 DD/ 56 Discharge Plan Discharge Patient Disposition: Home Clinical Impression: Hyponatremia, Generalized body aches Condition: Stable Prescriptions: No Action carvedilol 3.125 mg tablet 3.125 mg PO BID 30 Days Qty: 60 RF: 5 hydrocodone-acetaminophen 10-325 mg tablet 1 tab PO Q4H PRN (Reason: pain) RF: 0 morphine 15 mg tablet 15 mg PO Q4H PRN (Reason: pain) RF: 0 lactulose 10 gram/15 mL solution 20 gm PO BID Qty: 946 RF: 2 lisinopril 40 mg tablet 40 mg PO DAILY Qty: 90 RF: 3 amitriptyline 150 mg tablet 150 mg PO BEDTIME RF: 0 nifedipine 90 mg tablet extended release 90 mg PO DAILY RF: 0 simvastatin 10 mg tablet 10 mg PO BEDTIME RF: 0 aspirin [Aspirin Low Dose] 81 mg Tablet,Delayed Release (Dr/Ec) 81 mg PO DAILY RF: 0 citalopram 20 mg tablet 20 mg PO BEDTIME RF: 0 tamsulosin 0.4 mg capsule 0.4 mg PO BEDTIME RF: 0 levothyroxine 125 mcg tablet 125 mcg PO DAILY RF: 0 mupirocin 2 % Ointment 1 applic TOPICAL BID RF: 0 furosemide 20 mg tablet 20 mg PO DAILY RF: 0 cyanocobalamin (vitamin B-12) [Vitamin B-12] 2,000 mcg Tablet Extended Release 20,000 mcg PO DAILY RF: 0 lorazepam 1 mg tablet 1 mg PO PRN PRN (Reason: Anxiety) RF: 0 hydrocodone-acetaminophen [[place]] 5-325 mg tablet 1 tab PO Q6H Qty: 20 RF: 0 docusate sodium [Colace] 100 mg capsule 100 mg PO BID Qty: 30 RF: 0 Discharge Orders: Discharge Order (Routine); Ordered 02/23/20 Ordered By: Jerry Sarmiento Referrals: Robert Snell, [Primary Care Provider] - Discharge Diet: Regular Discharge Activity: Increase activity as tolerated Patient Instructions: Hyponatremia (ED) Activity Restrictions/Additional Instructions: Follow-up with medical provider as directed in about 5 days. Have your primary care physician recheck your sodium level. COVID testing was performed and sent to lab and results will be back in 2 to 3 days. Self quarantine for the next 3 days or up to 12 days pending on COVID testing results. Contact [facility] in 2 to 3 days to get results or [facility] will contact you with results. Take Tylenol for fevers. Drink plenty of fluids and stay hydrated. Symptom management with [id number] cough and nasal decongestant meds. Return to the ER or your medical provider if condition worsens. Please read and understand discharge instructions. If any questions, please ask. Discharge Date/Time: 02/23/20 19:40 Sign Out Sign Out Data: Patient Sign Out occurred on 02/23/20 at 17:02. Patient's care was discussed, and care was transferred from to CHRISTO Bowman. Coding Level of Care Code ED Corporate Planning Manager for Yovanyg Fwd Exam Detailed
[2020-02-23] MEDS: HYDROcodone-acetaminophen 5-325 mg Tablet 1 TAB PO (16:38)
[2020-02-23] MEDS: sodium chloride 0.9% 500 ML 999 ML IV (16:52)
[2020-02-23 17:08] VITALS: RESP 18; O2SAT 95
[2020-02-23] MEDS: HYDROcodone-acetaminophen 7.5-325 mg Tablet 1 TAB PO (18:26)
[2020-02-23] MEDS: sodium chloride 0.9% 500 ML IV (18:26)
[2020-02-23 19:39] VITALS: BP 193/150; PULSE 78; RESP 18; O2SAT 97
[2020-02-26 17:12] LABS: Quest SARS-CoV-2 RNA NOT DETECTED (NOT DETECTED)
--- NOTE | 2020-02-26 17:18 | DCPLANNER ---
PT CALLED TO CHECK RESULTS INFORMED OF NEGATIVE RESULT
== END 2020-02-23 19:40 | disposition home or self-care (01) ==
PROVIDERS: Registered Nurse; Emergency Provider Physician Assistant; PCP Family Medicine
DX: R52 Pain, unspecified (principal); E87.1 Hypo-osmolality and hyponatremia; Z79.82 Long term (current) use of aspirin
CPT/HCPCS: 12345; 36415; 71045; 80053; 83735; 85025; 87635; 96360; 96361; 99283; J7040

== ENCOUNTER 2020-04-27 13:30 | Emergency (ER) | payer MEDICARE, OTHER, SELFPAY ==
[2020-04-27 13:38] VITALS: BP 148/63; PULSE 102; RESP 18; TEMP 36.3; O2SAT 96; BMI 27.5
--- NOTE | 2020-04-27 14:05 | ED_ITS ---
HPI - Anxiety General: Chief Complaint: Anxiety Stated Complaint: ANXIETY Time Seen by Provider: 04/27/20 13:50 History of Present Illness: HPI narrative: 80-year-old male with episodes of anxiety. Usually given Ativan by his primary care doctor and recently ran out. Patient is feeling fine now he had an anxiety attack earlier today is concerned that he may have another and he has no Ativan. Usually is prescribed Ativan by his primary caregiver. MD complaint: anxiety Onset (ago): year(s) (Most recent attack earlier today) Symptoms: palpitations Severity: moderate Quality: intermittent Place: home History of similar episodes: Yes Relieving factors: medication Associated symptoms: Deny anorexia, chest pain, chills, confusion, diaphoresis, fever(s), headache(s), malaise, nausea, palpitations, short of breath, syncope, vomiting or weakness Review of Systems Const: Denies: fever(s), chills, malaise or diaphoresis ENMT: Denies: throat pain, ear or mastoid pain, nasal discharge or nasal congestion Card: Denies: chest pain, palpitations or syncope Resp: Denies: dyspnea, productive cough or non-productive cough GI: Denies: nausea or vomiting : Denies: flank pain, dysuria, urinary frequency or urinary urgency Skin/Breast: Denies: rash or pruritus Neuro: Denies: headache(s) or confusion PFSH ED PFSH: Medical History Anxiety Aortic stenosis Arrhythmia Arthritis Bilateral carotid artery stenosis Heart attack History of fracture Hypertension Hypothyroidism Pulmonary hypertension Severe hearing loss Skin disease Surgical History History of appendectomy History of shoulder replacement History of tonsillectomy and adenoidectomy History of umbilical hernia repair S/P bilateral inguinal hernia repair Status post colonoscopy Family History Other Diabetes Hypertension Denies family history of Anesthesia complication Bleeding disorder Social History Smoking and tobacco status: former smoker Alcohol intake: never Household members: spouse Marital status: Current occupational status: retired History of recent travel: No Physical Exam Const: COMMON NORMALS: no acute distress GENERAL APPEARANCE: cooperative and comfortable ORIENTATION/CONSCIOUSNESS: Yes awake, Yes oriented to person, Yes oriented to place and Yes oriented to time HENMT: COMMON NORMALS: normocephalic, atraumatic and hearing grossly normal bilaterally HEAD & SCALP: normocephalic and atraumatic Neck/C-Spine: COMMON NORMALS: no JVD Resp: COMMON NORMALS: normal respiratory effort EFFORT & INSPECTION: No u ses accessory muscles AUSCULTATION: wheezes and diminished lung sounds Cardio: COMMON NORMALS: no JVD, regular rate, regular rhythm and No murmurs present (Cardio) RATE: regular rate RHYTHM: regular rhythm GI: COMMON NORMALS: Soft to palpation and No hepatosplenomegaly present AUSCULTATION: Yes normoactive bowel sounds PALPATION: Yes Soft to palpation, No Tenderness to palpation present (GI), No Guarding due to palpation present (GI) and Yes No hepatosplenomegaly present Extremity: COMMON NORMALS: normal to inspection, capillary refill normal, no clubbing, cyanosis or edema, no calf tenderness and no pedal edema Neuro: SENSORIUM/ORIENTATION: Yes oriented to person, Yes oriented to place and Yes oriented to time Skin: COMMON NORMALS: no rashes or lesions noted GENERAL SKIN EXAM: no rashes or lesions noted Course Vital Signs: Vital signs: Vital Signs Temperature 97.3 F L 04/27/20 14:22 Pulse Rate 102 H 04/27/20 14:22 Respiratory Rate 18 04/27/20 14:22 Blood Pressure 148/63 04/27/20 14:22 Pulse Oximetry 96 04/27/20 14:22 MDM - Anxiety MDM Narrative: Medical decision making narrative: We will give him some hydroxyzine to use as needed until he is able to get into see his regular doctor discussed this with him have him follow-up with primary care in the next 3 to 4 days. Discharge Plan Discharge Patient Disposition: Home Clinical Impression: Anxiety Condition: Stable Prescriptions: New hydroxyzine HCl 10 mg tablet 10 mg PO Q6H PRN (Reason: anxiety) Qty: 7 RF: 0 No Action carvedilol 3.125 mg tablet 3.125 mg PO BID 30 Days Qty: 60 RF: 5 hydrocodone-acetaminophen 10-325 mg tablet 1 tab PO Q4H PRN (Reason: pain) RF: 0 morphine 15 mg tablet 15 mg PO Q4H PRN (Reason: pain) RF: 0 lactulose 10 gram/15 mL solution 20 gm PO BID Qty: 946 RF: 2 lisinopril 40 mg tablet 40 mg PO DAILY Qty: 90 RF: 3 amitriptyline 150 mg tablet 150 mg PO BEDTIME RF: 0 nifedipine 90 mg tablet extended release 90 mg PO DAILY RF: 0 simvastatin 10 mg tablet 10 mg PO BEDTIME RF: 0 aspirin [Aspirin Low Dose] 81 mg Tablet,Delayed Release (Dr/Ec) 81 mg PO DAILY RF: 0 citalopram 20 mg tablet 20 mg PO BEDTIME RF: 0 tamsulosin 0.4 mg capsule 0.4 mg PO BEDTIME RF: 0 levothyroxine 125 mcg tablet 125 mcg PO DAILY RF: 0 mupirocin 2 % Ointment 1 applic TOPICAL BID RF: 0 furosemide 20 mg tablet 20 mg PO DAILY RF: 0 cyanocobalamin (vitamin B-12) [Vitamin B-12] 2,000 mcg Tablet Extended Release 20,000 mcg PO DAILY RF: 0 lorazepam 1 mg tablet 1 mg PO PRN PRN (Reason: Anxiety) RF: 0 hydrocodone-acetaminophen [[place]] 5-325 mg tablet 1 tab PO Q6H Qty: 20 RF: 0 docusate sodium [Colace] 100 mg capsule 100 mg PO BID Qty: 30 RF: 0 Discharge Orders: Discharge ED (Routine); Ordered 04/27/20 Ordered By: Nathan Hough Referrals: Robert Snell DO [Primary Care Provider] - Discharge Diet: Usual diet Discharge Activity: Resume usual activity Coding Level of Care Code ED Wireline Field Operator for Chg Fwd Exam Comprehensive
[2020-04-27 14:22] VITALS: BP 148/63; PULSE 102; RESP 18; TEMP 36.3; O2SAT 96
== END 2020-04-27 14:28 | disposition home or self-care (01) ==
PROVIDERS: Emergency Provider Family Medicine; PCP Family Medicine
DX: F41.9 Anxiety disorder, unspecified (principal); Z79.82 Long term (current) use of aspirin; I10 Essential (primary) hypertension; Z87.891 Personal history of nicotine dependence
CPT/HCPCS: 12345; 99281; 99282

== ENCOUNTER 2020-05-09 16:24 | Inpatient (IN) | payer MEDICARE, OTHER, SELFPAY ==
[2020-05-09] VITALS (9 sets, daily range): BP systolic 155–182; BP diastolic 69–106; PULSE 81–99; RESP 17–28; TEMP 36.6–36.7; O2SAT 24–99; BMI 27.9
--- NOTE | 2020-05-09 17:57 | ECG_ITS ---
[facility] Test Date: 2020-05-09 Pat Name: Landry Foster Department: Room: Gender: Male Water Chemist: : 1940 Requested By: Troy Bhatt Order Number: [id number] Christy MD: Guanako Munoz M.D. Measurements Intervals [place] Rate: 93 P: 119 ND: 225 QRS: 43 QRSD: 136 T: 109 QT: 356 QTc: 443 Interpretive Statements SINUS RHYTHM WITH FIRST DEGREE AV BLOCK INTRAVENTRICULAR CONDUCTION DELAY [130+ ms QRS DURATION] LEFT VENTRICULAR HYPERTROPHY AND ST-T CHANGE [VOLTAGE CRITERIA PLUS ST/T ABNORMALITY] INTERPRETATION BASED ON A DEFAULT AGE OF 40 YEARS Compared to ECG 02/21/2020 23:28:01 First degree AV block now present Left ventricular hypertrophy now present ST (T wave) deviation now present Electronically Signed On 05-09-2020 18:37:21 INDUSTRIAL ECONOMIST by Guanako Munoz M.D. [id number]
--- NOTE | 2020-05-09 17:59 | ED_ITS ---
Documented by User: Troy Bhatt MD 05/09/20 18:29 HPI - Psych General: Chief Complaint: Psychiatric Symptoms Stated Complaint: Anxiety Attk. Time Seen by Provider: 05/09/20 17:07 History of Present Illness: HPI Narrative: Patient is an anxious 80-year-old male seen for anxiety state. Both he and his relate that over the last several years, he has had very rare similar instances, where he feels agitated, restless, and has to be fidgeting and walking. He goes to the bathroom frequently, and walks out to his barn to perform meaningless tasks. Over the years, the frequency has been increasing. Over the last week, has had 1 such instance every day, and today he has felt this way all day since waking up. He denies headache, fever, chest pain, shortness of breath, nausea, vomiting, diarrhea, constipation, abdominal pain, and has had no other changes to medications. He was recently prescribed hydroxyzine 10 mg, and he has taken 2 doses today without any relief. He has no other acute complaints and explicitly denies suicidal and homicidal ideation. Review of Systems General: Reports: 10 or more systems reviewed and unremarkable except in HPI and below PFSH ED PFSH: Medical History Anxiety Aortic stenosis Arrhythmia Arthritis Bilateral carotid artery stenosis Heart attack History of fracture Hypertension Hypothyroidism Pulmonary hypertension Severe hearing loss Skin disease Surgical History History of appendectomy History of shoulder replacement History of tonsillectomy and adenoidectomy History of umbilical hernia repair S/P bilateral inguinal hernia repair Status post colonoscopy Family History Son Stroke Other Diabetes Hypertension Denies family history of CAD (coronary artery disease) Dementia Hyperlipidemia Chronic kidney disease (CKD) Anesthesia complication Bleeding disorder Cancer Social History Smoking and tobacco status: former smoker Alcohol intake: never Household members: spouse Marital status: Current occupational status: retired History of recent travel: No Physical Exam Const: COMMON NORMALS: no acute distress, patient oriented x3 and alert HENMT: COMMON NORMALS: normocephalic and atraumatic HEAD & SCALP: normocephalic and atraumatic Eye: COMMON NORMALS: Equal, round and reactive pupils present, EOMs intact bilaterally and no scleral icterus PUPIL: Yes Equal, round and reactive pupils present Resp: COMMON NORMALS: normal respiratory effort and No retractions Cardio: COMMON NORMALS: regular rate, regular rhythm and No murmurs present (Cardio) RATE: regular rate RHYTHM: regular rhythm GI: COMMON NORMALS: Normal to inspection, nondistended, normoactive bowel sounds present, Soft to palpation and non-tender PALPATION: Yes Soft to palpation Neuro: COMMON NORMALS: patient oriented x3 SENSORIUM/ORIENTATION: Yes alert Psych: COMMON NORMALS: mental status grossly normal, Normal thought process present, cooperative, normal affect, denies hallucinations, denies homicidal ideation and denies suicidal ideation; negative for activity/motor behavior normal ACTIVITY/MOTOR BEHAVIOR: Yes appropriate eye contact and Yes psychomotor agitation MOOD & AFFECT: Yes anxious THOUGHT PROCESS: Normal thought process present THOUGHT CONTENT: Yes Normal thought content present, No Suicidality present and No Homicidality present ATTENTION/CONCENTRATION: Yes attention grossly intact and Yes concentration grossly intact MEMORY/COGNITION: Yes memory grossly intact and Yes cognition grossly intact INSIGHT: Good insight present (Psych) JUDGEMENT: Fair judgement present (Psych) Skin: COMMON NORMALS: no rashes or lesions noted GENERAL SKIN EXAM: no rashes or lesions noted MDM - Psych MDM Narrative: Medical decision making narrative: Patient was seen earlier in the week for a similar instance of anxiety state and was prescribed hydroxyzine which she states is not helping. Symptoms are getting worse, prompting a basic medical workup today to look for exacerbating organic etiologies. He denies drug and alcohol abuse. I am concerned that he may have had a paradoxical effect from the hydroxyzine causing mild dystonia or increased agitation. Pertinent details of the case return to the oncoming emergency physician who will help facilitate ultimate disposition once medical work-up has been completed. I do not feel he would benefit from inpatient psychiatric care, however he may benefit from an alternate therapeutic agent. Lab Data: Labs: Lab Results 05/09/20 05/09/20 05/09/20 Range/Units 18:30 18:30 18:30 WBC 9.4 (4.0-10.0) 10^3/ uL RBC 3.50 L (4.1-5.3) 10^6/u L Hgb 10.8 L (11.7-16.6) g/dL Hct 32.0 L (42.0-52.0) % MCV 91.4 (80-94) fL MCH 30.9 (28.0-34.0) pg MCHC 33.8 (30.0-36.0) g/dL RDW 12.5 (12.1-15.1) % Plt Count 339 (130-400) 10^3/c mm MPV 10.0 (7.4-10.4) fL Neut % (Auto) 75.3 % Lymph % (Auto) 13.6 % [place] % (Auto) 8.1 % Eos % (Auto) 2.0 % Baso % (Auto) 0.5 % Neut # (Auto) 7.10 (1.8-7.7) 10^3/u L Lymph # (Auto) 1.3 (0.8-4.8) 10^3/u L [place] # (Auto) 0.8 (0.2-0.9) 10^3/u L Eos # (Auto) 0.2 (0.0-0.8) 10^3/u L Baso # (Auto) 0.1 (0.0-0.1) 10^3/u L Nucleated RBC % (a uto) 0 % Nucleated RBCs # 0.0 /100WBC Sodium 120 L (136-145) mmol/L Potassium 5.4 H (3.5-5.1) mmol/L Chloride 87 L (98-107) mmol/L Carbon Dioxide 25 (22-29) mmol/L Anion Gap 13.4 (5-19) BUN 14 (8-23) mg/dL Creatinine 1.2 (0.7-1.2) mg/dL GFR Calculation Not Reportable Glucose 107 (65-115) mg/dL Calculated Osmolal ity 251 L (285-295) mOsm/k g Uric Acid 4.0 (3.4-7.0) mg/dL Calcium 9.4 (8.5-10.5) mg/dL Total Bilirubin 0.4 (0.15-1.2) mg/dL AST 37 (0-40) U/L ALT 20 (0-41) U/L Alkaline Phosphata se 95 (40-130) IU/L Total Protein 7.4 (6.6-8.7) g/dL Albumin 4.5 (3.5-5.2) g/dL Globulin 2.9 (1.3-4.6) g/dL TSH 25.35 H (0.27-4.20) uIU/ mL Free T4 0.77 L (0.82-1.77) ng/d L Ur Random Sodium mmol/L Urine Creatinine (39-259) mg/dL 05/09/20 Range/Units 20:04 WBC (4.0-10.0) 10^3/ uL RBC (4.1-5.3) 10^6/u L Hgb (11.7-16.6) g/dL Hct (42.0-52.0) % MCV (80-94) fL MCH (28.0-34.0) pg MCHC (30.0-36.0) g/dL RDW (12.1-15.1) % Plt Count (130-400) 10^3/c mm MPV (7.4-10.4) fL Neut % (Auto) % Lymph % (Auto) % [place] % (Auto) % Eos % (Auto) % Baso % (Auto) % Neut # (Auto) (1.8-7.7) 10^3/u L Lymph # (Auto) (0.8-4.8) 10^3/u L [place] # (Auto) (0.2-0.9) 10^3/u L Eos # (Auto) (0.0-0.8) 10^3/u L Baso # (Auto) (0.0-0.1) 10^3/u L Nucleated RBC % (a uto) % Nucleated RBCs # /100WBC Sodium (136-145) mmol/L Potassium (3.5-5.1) mmol/L Chloride (98-107) mmol/L Carbon Dioxide (22-29) mmol/L Anion Gap (5-19) BUN (8-23) mg/dL Creatinine (0.7-1.2) mg/dL GFR Calculation Glucose (65-115) mg/dL Calculated Osmolal ity (285-295) mOsm/k g Uric Acid (3.4-7.0) mg/dL Calcium (8.5-10.5) mg/dL Total Bilirubin (0.15-1.2) mg/dL AST (0-40) U/L ALT (0-41) U/L Alkaline Phosphata se (40-130) IU/L Total Protein (6.6-8.7) g/dL Albumin (3.5-5.2) g/dL Globulin (1.3-4.6) g/dL TSH (0.27-4.20) uIU/ mL Free T4 (0.82-1.77) ng/d L Ur Random Sodium 32 mmol/L Urine Creatinine 45 (39-259) mg/dL EKG Data^: EKG 1: EKG interpretation date: 05/09/20 EKG interpretation time: 18:03 Computer generated interpretation: Sinus rhythm with first-degree block, rate of 93, mild LVH with negative Scarbossa critheria Discharge Plan Discharge Patient Disposition: Placed in Observation Admit Provider: Kaylin Chen Clinical Impression: Acute hyponatremia Sign Out Sign Out Data: Patient Sign Out occurred on 05/09/20 at 18:59. Patient's care was discussed, and care was transferred from to Kasia Acosta. Coding Level of Care Code ED Simulation Technician for Chg Fwd Exam Comprehensive Documented by User: Kasia Acosta 05/10/20 02:41 HPI - Psych General: Chief Complaint: Psychiatric Symptoms Stated Complaint: Anxiety Attk. Time Seen by Provider: 05/09/20 17:07 [facility] ED PFSH: Medical History Anxiety Aortic stenosis Arrhythmia Arthritis Bilateral carotid artery stenosis Heart attack History of fracture Hypertension Hypothyroidism Pulmonary hypertension Severe hearing loss Skin disease Surgical History History of appendectomy History of shoulder replacement History of tonsillectomy and adenoidectomy History of umbilical hernia repair S/P bilateral inguinal hernia repair Status post colonoscopy Family History Son Stroke Other Diabetes Hypertension Denies family history of CAD (coronary artery disease) Dementia Hyperlipidemia Chronic kidney disease (CKD) Anesthesia complication Bleeding disorder Cancer Social History Smoking and tobacco status: former smoker Alcohol intake: never Household members: spouse Marital status: Current occupational status: retired History of recent travel: No MDM - Psych MDM Narrative: Medical decision making narrative: 2001 -Case inherited by me at change of shift from Dr. Bhatt. Please see his note for his history, physical exam and medical decision-making notes. Patient has increasing anxiety over the past several weeks. Evaluation here tonight reveals hyponatremia with a sodium of 120. I believe this along with generalized anxiety is likely contributing to the severe anxiety he is experiencing right now. Patient has been told he has low salt in the past but it does not sound like this is ever been definitively worked up. He is on an SSRI and Lasix and hydroxyzine is new. Patient also admits to drinking copious amounts of fluids every day but this is a mixture of water as well as tea and soda. I have reviewed the case in its entirety with Dr. Chen and he agrees to admit the patient but at this time wants to hold off any saline and just do fluid restrictions. Further care will be dictated by him. Lab Data: Labs: Lab Results 05/09/20 05/09/20 05/09/20 Range/Units 18:30 18:30 18:30 WBC 9.4 (4.0-10.0) 10^3/ uL RBC 3.50 L (4.1-5.3) 10^6/u L Hgb 10.8 L (11.7-16.6) g/dL Hct 32.0 L (42.0-52.0) % MCV 91.4 (80-94) fL MCH 30.9 (28.0-34.0) pg MCHC 33.8 (30.0-36.0) g/dL RDW 12.5 (12.1-15.1) % Plt Count 339 (130-400) 10^3/c mm MPV 10.0 (7.4-10.4) fL Neut % (Auto) 75.3 % Lymph % (Auto) 13.6 % [place] % (Auto) 8.1 % Eos % (Auto) 2.0 % Baso % (Auto) 0.5 % Neut # (Auto) 7.10 (1.8-7.7) 10^3/u L Lymph # (Auto) 1.3 (0.8-4.8) 10^3/u L [place] # (Auto) 0.8 (0.2-0.9) 10^3/u L Eos # (Auto) 0.2 (0.0-0.8) 10^3/u L Baso # (Auto) 0.1 (0.0-0.1) 10^3/u L Nucleated RBC % (a uto) 0 % Nucleated RBCs # 0.0 /100WBC Sodium 120 L (136-145) mmol/L Potassium 5.4 H (3.5-5.1) mmol/L Chloride 87 L (98-107) mmol/L Carbon Dioxide 25 (22-29) mmol/L Anion Gap 13.4 (5-19) BUN 14 (8-23) mg/dL Creatinine 1.2 (0.7-1.2) mg/dL GFR Calculation Not Reportable Glucose 107 (65-115) mg/dL Calculated Osmolal ity 251 L (285-295) mOsm/k g Uric Acid 4.0 (3.4-7.0) mg/dL Calcium 9.4 (8.5-10.5) mg/dL Total Bilirubin 0.4 (0.15-1.2) mg/dL AST 37 (0-40) U/L ALT 20 (0-41) U/L Alkaline Phosphata se 95 (40-130) IU/L Total Protein 7.4 (6.6-8.7) g/dL Albumin 4.5 (3.5-5.2) g/dL Globulin 2.9 (1.3-4.6) g/dL TSH 25.35 H (0.27-4.20) uIU/ mL Free T4 0.77 L (0.82-1.77) ng/d L Ur Random Sodium mmol/L Urine Creatinine (39-259) mg/dL 05/09/20 Range/Units 20:04 WBC (4.0-10.0) 10^3/ uL RBC (4.1-5.3) 10^6/u L Hgb (11.7-16.6) g/dL Hct (42.0-52.0) % MCV (80-94) fL MCH (28.0-34.0) pg MCHC (30.0-36.0) g/dL RDW (12.1-15.1) % Plt Count (130-400) 10^3/c mm MPV (7.4-10.4) fL Neut % (Auto) % Lymph % (Auto) % [place] % (Auto) % Eos % (Auto) % Baso % (Auto) % Neut # (Auto) (1.8-7.7) 10^3/u L Lymph # (Auto) (0.8-4.8) 10^3/u L [place] # (Auto) (0.2-0.9) 10^3/u L Eos # (Auto) (0.0-0.8) 10^3/u L Baso # (Auto) (0.0-0.1) 10^3/u L Nucleated RBC % (a uto) % Nucleated RBCs # /100WBC Sodium (136-145) mmol/L Potassium (3.5-5.1) mmol/L Chloride (98-107) mmol/L Carbon Dioxide (22-29) mmol/L Anion Gap (5-19) BUN (8-23) mg/dL Creatinine (0.7-1.2) mg/dL GFR Calculation Glucose (65-115) mg/dL Calculated Osmolal ity (285-295) mOsm/k g Uric Acid (3.4-7.0) mg/dL Calcium (8.5-10.5) mg/dL Total Bilirubin (0.15-1.2) mg/dL AST (0-40) U/L ALT (0-41) U/L Alkaline Phosphata se (40-130) IU/L Total Protein (6.6-8.7) g/dL Albumin (3.5-5.2) g/dL Globulin (1.3-4.6) g/dL TSH (0.27-4.20) uIU/ mL Free T4 (0.82-1.77) ng/d L Ur Random Sodium 32 mmol/L Urine Creatinine 45 (39-259) mg/dL Discharge Plan Discharge Patient Disposition: Placed in Observation Admit Provider: Kaylin Chen Clinical Impression: Acute hyponatremia Sign Out Sign Out Data: Patient Sign Out occurred on 05/09/20 at 18:59. Patient's care was discussed, and care was transferred from to [facility]. Coding Level of Care Code ED Simulation Technician for Arian Fwd Exam Comprehensive
[2020-05-09] MEDS: LORazepam 1 mg Tablet PO (18:34)
[2020-05-09 19:02] LABS: Basophils # 0.1 10^3/uL (0.0-0.1); Basophils % 0.5 %; Eosinophils # 0.2 10^3/uL (0.0-0.8); Hemoglobin 10.8 g/dL (11.7-16.6); Lymphocytes # 1.3 10^3/uL (0.8-4.8); Lymphocytes % 13.6 %; Mean Corpuscular HGB Conc 33.8 g/dL (30.0-36.0); Mean Corpuscular Hemoglobin 30.9 pg (28.0-34.0); Mean Corpuscular Volume 91.4 fL (80-94); Monocytes # 0.8 10^3/uL (0.2-0.9); Monocytes % 8.1 %; Neutrophils % 75.3 %; Nucleated Red Blood Cells % 0 %; Platelet Count 339 10^3/cmm (130-400); Red Cell Distribution Width 12.5 % (12.1-15.1); White Blood Count 9.4 10^3/uL (4.0-10.0)
[2020-05-09 19:24] LABS: Alanine Aminotransferase 20 U/L (0-41); Albumin Level 4.5 g/dL (3.5-5.2); Alkaline Phosphatase 95 IU/L (40-130); Anion Gap 13.4 (5-19); Aspartate Amino Transferase 37 U/L (0-40); Blood Urea Nitrogen 14 mg/dL (8-23); Calcium 9.4 mg/dL (8.5-10.5); Carbon Dioxide 25 mmol/L (22-29); Chloride 87 mmol/L (98-107); Globulin 2.9 g/dL (1.3-4.6); Glucose 107 mg/dL (65-115); Osmolality Calculated 251 mOsm/kg (285-295); Potassium 5.4 mmol/L (3.5-5.1); Sodium 120 mmol/L (136-145); Thyroid Stimulating Hormone 25.35 uIU/mL (0.27-4.20); Total Bilirubin 0.4 mg/dL (0.15-1.2); Total Protein 7.4 g/dL (6.6-8.7)
--- NOTE | 2020-05-09 20:01 | P.HP_ITS ---
Providers/Chief Complaint Primary Care Provider: Robert Snell DO Chief Complaint: Anxiety Attk. History of Present Illness Landry Foster is a 80 year old male who presented to the hospital with chief complaint of feeling very anxious. Patient is stating that at home he has been very fidgety and was not able to stay comfortable so he presented to the hospital. He is denying falls, vomiting, nausea, chest pain, shortness of isaac th, fever but is endorsing lower extremity edema, he is not sure about his medications but it includes Lasix. He is endorsing constipation for which she is taking docusate and lactulose. Patient is endorsing to drinking a lot of water and tea in a day, he is endorsing drinking half a gallon of tea with large amount of water. Diagnosis in the ER revealed hyponatremia sodium 120, patient was very agitated and kept asking for water, he was also experiencing urinary frequency. He was given Ativan 1 mg p.o., I requested ER to hold his normal saline. Of note, he was seen in the ER few days ago for which she was given hydroxyzine for possible agitation and was discharged home. At the time of my evaluation he could tell me above-mentioned HPI, he can tell me his name date of and why he is in the hospital, he was alert with short attention span, no gait abnormality noticed he went to the bathroom to void. Very pleasant during my interview. Did not complain of any active chest pain h allucinations or myalgias. Did notice coarse tremors at rest which gets worse on intentional activities. I have requested ICU bed to monitor his sodium level, fluid restrict him hold antipsychotics and antidepressants Review of Systems Const: Reports: chills, body aches, fatigue and malaise Eyes: Denies: change in vision ENMT: Denies: throat pain Card: Denies: chest pain Resp: Denies: dyspnea GI: Reports: constipation; Denies: abdominal pain : Reports: urinary frequency; Denies: flank pain Musc: Denies: neck pain Skin/Breast: Denies: rash Neuro: Denies: headache(s) Psych: Denies: anxiety Endo: Reports: polyuria and polydipsia Eddie/Lymph: Denies: easy bruising All/Imm: Denies: urticaria Medications/Allergies Home Medications Medication Instructions Recorded Confirmed Last Taken Type amitriptyline 150 mg PO DAILY@05/25/19 05/09/20 05/08/20 History aspirin [Aspirin Low Dose] 81 mg PO DAILY@05/25/19 05/09/20 05/09/20 History citalopram 20 mg PO DAILY@05/25/19 05/09/20 05/08/20 History cyanocobalamin (vitamin B-12) 2,000 mcg PO DAILY@05/25/19 05/09/20 05/09/20 History [Vitamin B-12] furosemide 20 mg PO DAILY@05/25/19 05/09/20 05/08/20 History levothyroxine 125 mcg PO DAILY@05/25/19 05/09/20 05/09/20 History lorazepam 1 mg PO PRN PRN 05/25/19 05/09/20 07/22/19 History mupirocin 1 applic TOPICAL BID PRN 05/25/19 05/09/20 07/22/19 History simvastatin 10 mg PO DAILY@05/25/19 05/09/20 05/08/20 History tamsulosin 0.4 mg PO DAILY@05/25/19 05/09/20 05/08/20 History docusate sodium [Colace] 100 mg PO BID #30 cap 05/28/19 05/09/20 05/09/20 Rx hydrocodone 10 mg-acetaminophen 1 tab PO Q4H PRN tab 06/05/19 05/09/20 05/09/20 12:00 History 325 mg tablet lactulose 10 gram/15 mL oral 20 gm PO BID #946 ml 01/23/20 05/09/20 05/09/20 Rx solution budesonide-formoterol HFA 160 2 inh INHALATION BID PRN g 05/01/20 05/09/20 Unknown History mcg-4.5 mcg/actuation aerosol inhaler hydroxyzine HCl 25 mg PO Q6H PRN 05/09/20 05/09/20 05/09/20 16:00 History iron 325 mg PO DAILY@05/09/20 05/09/20 05/09/20 History lisinopril 40 mg PO DAILY@05/09/20 05/09/20 05/08/20 History morphine 15 mg PO QID PRN 1205/09/20 05/09/20 12:00 History multivitamin 1 tab PO DAILY@07 05/09/20 05/09/20 05/09/20 History nifedipine 90 mg PO DAILY@06 05/09/20 05/09/20 05/09/20 History Allergies Allergy/AdvReac Type Severity Reaction Status Date / Time No Known Allergies Allergy Verified 05/09/20 17:24 PFSH Acute PFSH: Medical History Anxiety Aortic stenosis Arrhythmia Arthritis Bilateral carotid artery stenosis Heart attack History of fracture Hypertension Hypothyroidism Pulmonary hypertension Severe hearing loss Skin disease Surgical History History of appendectomy History of shoulder replacement History of tonsillectomy and adenoidectomy History of umbilical hernia repair S/P bilateral inguinal hernia repair Status post colonoscopy Family History Son Stroke Other Diabetes Hypertension Denies family history of CAD (coronary artery disease) Dementia Hyperlipidemia Chronic kidney disease (CKD) Anesthesia complication Bleeding disorder Cancer Social History Smoking and tobacco status: former smoker Alcohol intake: never Household members: spouse Marital status: Current occupational status: retired History of recent travel: No Vitals/I&O/Wt Last Vital Signs Temp 98.1 F 05/09/20 16:37 Pulse 85 05/09/20 16:37 Resp 18 05/09/20 18:35 BP 159/96 05/09/20 16:37 Pulse Ox 97 05/09/20 16:37 Weight last 48 hrs Weight 83.461 kg Physical Exam Narrative: EXAM NARRATIVE: Very pleasant elderly male currently s aturating well on room air No active complaints of distress when I entered the room Patient was in semi-Estrada position Appears comfortable Clinically euvolemic S1, S2 no tachycardia or signs of heart failure Bilateral breath sounds without adventitious rhonchi or crackles Abdomen soft nontender bowel sounds present Lower extremity edema 1+ bilaterally Awake alert oriented x3 GCS 15 Coarse tremors noticed at rest which gets worse on intentional activities No cerebellar signs No signs of stroke Pupils are reactive and symmetrical Gait is normal he went to the bathroom in order to void urine Very pleasant during my interview Data : 05/09/20 18:30 05/09/20 18:30 A&P Assessment and plan (1) Chronic hyponatremia: Status: Acute (2) Chronic constipation: Status: Acute (3) Bilateral carotid artery stenosis: Status: Acute (4) Aortic stenosis: Status: Acute Qualifiers: Cardiac valve disease etiology: nonrheumatic Qualified Code(s): I35.0 - Nonrheumatic aortic (valve) stenosis (5) Hyperkalemia: Status: Acute (6) Hypothyroidism: Status: Acute Additional A&P Information Chronic hyponatremia Clinically looks euvolemic, patient drinks half a gallon of tea and endorses to drinking a lot of water in a day Hypoosmolar serum osmolarity Urine sodium 32 TSH 25 with low T4 This seems to be fitting clinical presentation of suboptimally controlled hypothyroidism with possible SIADH, urine osmolarity is pending I would fluid restrict him and monitor his sodium level every 4-6 hours He does have coarse tremors which gets worse on intentional activities however no active signs of stroke or progressive seizures We will consult nephro as well for their input Hyperkalemia Potassium 5.4 I would hold his lisinopril Creatinine is normal This most likely is drug-induced hyperkalemia Hypothyroidism Suboptimally controlled I would increase his levothyroxine dose No signs of myxedema He is not hypotensive or hypothermic, would not initiate stress dose steroids for now Full code Regular diet salt liberal diet DVT prophylaxis Lovenox Attestations Medical Necessity Statement*: Anticipating stay in the hospital cross more than 2 midnights continued ICU for close monitoring for symptomatic hyponatremia Time Spent in Patient Care: (>than 50% of time spent in counselling and/or direct pt care on unit) . 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
--- NOTE | 2020-05-09 20:22 | PC.NURSE ---
Pt pacing in room and hallway. Attempt to reorient to POC and need to remail in room and stay in the bed. For VS
[2020-05-09 20:39] LABS: Free T4 Free Thyroxine 0.77 ng/dL (0.82-1.77)
[2020-05-09 21:06] LABS: Urine Creatinine 45 mg/dL (39-259); Urine Random Sodium 32 mmol/L
--- NOTE | 2020-05-09 22:19 | PC.NURSE ---
attempt to report to KARLA Pichardo. Per KARLA Ríos, unable to take report now.
--- NOTE | 2020-05-09 23:07 | PC.NURSE ---
Attempt Report to KARLA Pichardo
[2020-05-10] VITALS (44 sets, daily range): BP systolic 119–199; BP diastolic 57–135; PULSE 77–100; RESP 14–25; TEMP 36.7–36.9; O2SAT 92–98
[2020-05-10] MEDS: enoxaparin 40 mg/0.4 mL Syringe SUBCUT ×2 (00:43→23:34)
[2020-05-10 01:06] LABS: Sodium 120 mmol/L (136-145)
[2020-05-10] MEDS: NIFEdipine ER (24 hr) 30 mg Tablet 90 MG PO (04:05)
--- NOTE | 2020-05-10 04:07 | PC.NURSE ---
Patient's blood pressure slowing increasing to 180s/90s. Dr. Chen notified and requested to give daily dose of Procardia early. Given at 0407.
[2020-05-10] MEDS: levothyroxine 150 mcg Tablet PO (06:11)
[2020-05-10] MEDS: aspirin 81 mg EC Tablet PO (06:11)
[2020-05-10 07:53] LABS: Basophils # 0.1 10^3/uL (0.0-0.1); Eosinophils # 0.4 10^3/uL (0.0-0.8); Eosinophils % 4.6 %; Hematocrit 32.9 % (42.0-52.0); Hemoglobin 11.1 g/dL (11.7-16.6); Lymphocytes # 1.2 10^3/uL (0.8-4.8); Lymphocytes % 14.5 %; Mean Corpuscular HGB Conc 33.7 g/dL (30.0-36.0); Mean Corpuscular Hemoglobin 30.6 pg (28.0-34.0); Mean Corpuscular Volume 90.6 fL (80-94); Mean Platelet Volume 10.3 fL (7.4-10.4); Monocytes # 0.7 10^3/uL (0.2-0.9); Monocytes % 8.2 %; Neutrophils # 5.74 10^3/uL (1.8-7.7); Neutrophils % 71.6 %; Nucleated Red Blood Cells % 0 %; Platelet Count 336 10^3/cmm (130-400); Red Blood Count 3.63 10^6/uL (4.1-5.3); Red Cell Distribution Width 12.3 % (12.1-15.1)
[2020-05-10] MEDS: docusate sodium 100 mg Capsule PO (08:34)
[2020-05-10 08:47] LABS: Alanine Aminotransferase 21 U/L (0-41); Albumin Level 4.4 g/dL (3.5-5.2); Alkaline Phosphatase 98 IU/L (40-130); Anion Gap 14.6 (5-19); Aspartate Amino Transferase 42 U/L (0-40); Blood Urea Nitrogen 13 mg/dL (8-23); Calcium 9.6 mg/dL (8.5-10.5); Carbon Dioxide 24 mmol/L (22-29); Chloride 90 mmol/L (98-107); Globulin 2.8 g/dL (1.3-4.6); Glucose 91 mg/dL (65-115); Osmolality Calculated 258 mOsm/kg (285-295); Potassium 4.6 mmol/L (3.5-5.1); Sodium 124 mmol/L (136-145); Total Bilirubin 0.4 mg/dL (0.15-1.2); Total Protein 7.2 g/dL (6.6-8.7)
--- NOTE | 2020-05-10 09:42 | P.CONIM_ITS ---
Providers/Reason For Consult Consulting Physican/Specialty*: Nephrology Reason for Consult*: Evaluation for hyponatremia Attending Physician: Elfego Fitzpatrick MD Primary Care Provider: Robert Snell DO History of Present Illness History of Present Illness Landry Foster is a 80 year old male Thanks for consultation. Mr Foster is a pleasant 80 YoM, presenting with anxiety over the last day or so. On admission he was found to have a low sodium of 120. He drinks a large volume of water and tea throughout he day. His CT chest does show some evidence of emphysema. His TSH was high, T4 low, he takes opioids, antidepressants including amitriptyline and Citalopram. On admisobn, his urine Osmo is pending, however, his Sp Gr in his urine was low at 1.005 (equating to an osmolality of ~ 150). He demnies edema, SOB or other high volume Sx. Since admission, his Bp has been on the higer side. As an outpatient he does take Lasix but does not take thiazides. On review of his historic lab data, he has had a persistently low sodium for some time, between 126 and 130 since September of 2018 (oldest data). Since admission he has been fluid restricted, and his sodium has increased to 124 (from midnight to 7am). Review of Systems Narrative: ROS - 12 point review of systems completed per HPI and subjective assessment, this includes Constitutional: No weakness, fatigue Respiratory: No SOB on exertion, comfortable at rest CardioVasc: No chest pain, palpitations Gastrointestinal: No nausea, no vomiting Neurological: No seizures, no AMS Derm: No new rashes, lesions or wounds Immunological: No seasonal and no food allergies Meds/Allergies Home Medications and Allergies Home Medications Medication Instructions Recorded Confirmed Last Taken Type amitriptyline 150 mg PO DAILY@05/25/19 05/09/20 05/08/20 History aspirin [Aspirin Low Dose] 81 mg PO DAILY@05/25/19 05/09/20 05/09/20 History citalopram 20 mg PO DAILY@05/25/19 05/09/20 05/08/20 History cyanocobalamin (vitamin B-12) 2,000 mcg PO DAILY@05/25/19 05/09/20 05/09/20 History [Vitamin B-12] furosemide 20 mg PO DAILY@05/25/19 05/09/20 05/08/20 History levothyroxine 125 mcg PO DAILY@05/25/19 05/09/20 05/09/20 History lorazepam 1 mg PO PRN PRN 05/25/19 05/09/20 07/22/19 History mupirocin 1 applic TOPICAL BID PRN 05/25/19 05/09/20 07/22/19 History simvastatin 10 mg PO DAILY@05/25/19 05/09/20 05/08/20 History tamsulosin 0.4 mg PO DAILY@05/25/19 05/09/20 05/08/20 History docusate sodium [Colace] 100 mg PO BID #30 cap 05/28/19 05/09/20 05/09/20 Rx hydrocodone 10 mg-acetaminophen 1 tab PO Q4H PRN tab 06/05/19 05/09/20 05/09/20 12:00 History 325 mg tablet lactulose 10 gram/15 mL oral 20 gm PO BID #946 ml 01/23/20 05/09/20 05/09/20 Rx solution budesonide-formoterol HFA 160 2 inh INHALATION BID PRN g 05/01/20 05/09/20 Unknown History mcg-4.5 mcg/actuation aerosol inhaler hydroxyzine HCl 25 mg PO Q6H PRN 05/09/20 05/09/20 05/09/20 16:00 History iron 325 mg PO DAILY@05/09/20 05/09/20 05/09/20 History lisinopril 40 mg PO DAILY@05/09/20 05/09/20 05/08/20 History morphine 15 mg PO QID PRN 05/09/20 05/09/20 05/09/20 12:00 History multivitamin 1 tab PO DAILY@05/09/20 05/09/20 05/09/20 History nifedipine 90 mg PO DAILY@05/09/20 05/09/20 05/09/20 History Allergies Allergy/AdvReac Type Severity Reaction Status Date / Time No Known Allergies Allergy Verified 05/09/20 17:24 Current Medications Current Medications Generic Name Dose Route Start Last Admin Trade Name Freq PRN Reason Stop Dose Admin Aspirin 81 mg 05/10/20 07:00 05/10/20 06:11 Aspirin 81 Mg Ec Tablet PO 81 mg DAILY@07 [facility] Administration Docusate Sodium 100 mg 05/10/20 09:00 05/10/20 08:34 Docusate Sodium 100 Mg Capsule PO 100 mg BID ROCHELLE Administration Enoxaparin Sodium 40 mg 05/10/20 00:12 05/10/20 00:43 Enoxaparin 40 Mg/0.4 Ml Syringe SUBCUT 40 mg Q24H ROCHELLE Administration Sodium Chloride 1,000 mls @ 100 mls/hr 05/09/20 19:45 05/09/20 20:34 Sodium Chloride 0.9% IV Not Given .Q10H ROCHELLE Levothyroxine Sodium 150 mcg 05/10/20 06:00 05/10/20 06:11 Levothyroxine 150 Mcg Tablet PO 150 mcg DAILY@06 [facility]HELLE Administration Nifedipine 90 mg 05/10/20 06:00 05/10/20 04:05 Nifedipine Er (24 Hr) 30 Mg Tablet PO 90 mg DAILY@06 ROCHELLE Administration PFSH Acute PFSH: Medical History Anxiety Aortic stenosis Arrhythmia Arthritis Bilateral carotid artery stenosis Heart attack History of fracture Hypertension Hypothyroidism Pulmonary hypertension Severe hearing loss Skin disease Surgical History History of appendectomy History of shoulder replacement History of tonsillectomy and adenoidectomy History of umbilical hernia repair S/P bilateral inguinal hernia repair Status post colonoscopy Family History Son Stroke Other Diabetes Hypertension Denies family history of CAD (coronary artery disease) Dementia Hyperlipidemia Chronic kidney disease (CKD) Anesthesia complication Bleeding disorder Cancer Social History Smoking and tobacco status: former smoker Alcohol intake: never Household members: spouse Marital status: Current occupational status: retired History of recent travel: No Vitals/I&O/Wt Last Vital Signs Temp 98.4 F 05/10/20 08:30 Pulse 86 05/10/20 08:30 Resp 18 05/10/20 08:30 BP 162/79 05/10/20 08:30 Pulse Ox 96 05/10/20 08:30 05/09/20 05/10/20 05/10/20 22:59 06:59 14:59 Intake Total 200 / 200 100 / 100 Output Total 1475 / 1475 500 / 500 Balance -1275 / -1275 -400 / -400 Weight last 48 hrs Weight 83.461 kg Physical Exam Narrative: EXAM NARRATIVE: Constitutional: Awake, conversant, jovial HEENT: Wet mucosa, no jvp, non icteric Lungs: Bilaterally clear without discernible wheeze or rales in all lung zones CVS: S1 S2, no murmurs Abdo: Soft, BS ok Ext 4: Minimal edema, peripheral perfusion with no cyanosis Neurological: Grossly non-focal A&P Additional A&P Information 1. Euvolemic hyponatremia The low urinary specific gravity is consistent with low ADH ie a predominantly polydipsia picture. He has numerous risk factors for SIADH including medications (both opioids and anti-depressants), emphysema, hypothyroidism, however, these are all characterized by high ADH and thus concentrated urine Cont fluid restriction for now, however, polydipsia folks tend to correct quickly in the setting of fluid restriction and we may have to liberalize water intake goal sodium will be 128 at midnight tonight Fluid restrict to 2L Q6 hrly levels workup is largely complete, urine osmo pending am cortisol for completion (my suspicion for adrenal insufficiency is very low) 2. hypertension cont home meds 3. Tremor/anxiety continue to monitor symptoms as sodium corrects, may need titration of anxyolitics MD [facility] Consult Attestations Medical Necessity Statement: eval for hypoNA Coding Level of Care Code Acute Financial Investment Adviser for [facility]
--- NOTE | 2020-05-10 12:07 | PM.PN ---
Subjective Subjective: Interval history: Mr. Alatorre was seen and examined the morning. Is a still having anxiety bouts, apart from that, apart from that he is not complaining of, headache, nausea, vomiting, abnormal sensation. His other vitals and labs have been reviewed. He has remained afebrile, slightly hypertensive.Continues to be on fluid restriction,serum sodium has responded appropriately to fluid restriction. Vitals/I&O/Wt Last Vital Signs Temp 98.4 F 05/10/20 08:30 Pulse 89 05/10/20 11:00 Resp 18 05/10/20 11:00 BP 169/81 05/10/20 11:00 Pulse Ox 96 05/10/20 11:00 05/09/20 05/10/20 05/10/20 22:59 06:59 14:59 Intake Total 200 / 200 100 / 100 Output Total 1475 / 1475 500 / 500 Balance -1275 / -1275 -400 / -400 Weight last 48 hrs Weight 83.461 kg Physical Exam Const: COMMON NORMALS: patient oriented x3 HENMT: COMMON NORMALS: normocephalic and atraumatic HEAD & SCALP: normocephalic and atraumatic Chest: CHEST: Yes Symmetrical chest wall rise Resp: COMMON NORMALS: normal respiratory effort and clear to auscultation bilaterally AUSCULTATION: clear to auscultation bilaterally Cardio: COMMON NORMALS: regular rate, regular rhythm, S1 normal heart sound present, S2 normal heart sound present, No gallops present (Cardio), No murmurs present (Cardio), No rub (Cardio) and Peripheral pulses 2+ throughout RATE: regular rate RHYTHM: regular rhythm HEART SOUNDS: S1 normal heart sound present and S2 normal heart sound present PERIPHERAL PULSES: Peripheral pulses 2+ throughout GI: COMMON NORMALS: Normal to inspection, nondistended, normoactive bowel sounds present, Soft to palpation, non-tender, No hepatosplenomegaly present and no masses AUSCULTATION: Yes normoactive bowel sounds PALPATION: Yes Soft to palpation and Yes No hepatosplenomegaly present RECTAL EXAM: Yes deferred Extremity: COMMON NORMALS: no clubbing, cyanosis or edema and no pedal edema Neuro: COMMON NORMALS: patient oriented x3 Data : 05/10/20 07:20 05/10/20 12:12 A&P Assessment and plan (1) Chronic hyponatremia: Status: Acute (2) Hypothyroidism: Status: Acute (3) Hypertension: Status: Acute Qualifiers: Hypertension type: essential hypertension Qualified Code(s): I10 - Essential (primary) hypertension (4) Aortic stenosis: Status: Acute Qualifiers: Cardiac valve disease etiology: nonrheumatic Qualified Code(s): I35.0 - Nonrheumatic aortic (valve) stenosis (5) Pulmonary hypertension: Status: Acute (6) Anemia: Status: Acute Additional A&P Information #Chronic euvolemic hyponatremia: Likely secondary to polydipsia: Patient presented with generalized anxiety present for the last few days. On admission he was found to serum sodium of 120.He has chronic hyponatremia.The urine specific gravity which is being mentioned by renal is from 02/20. Current urine specific gravity is not available.Hence current urine osmolality estimation can be an approximation.Though given his h/o of tea and toast diet of picture ( which do not totally fit as he also tell that he eats other stuff fine). We can say with caution that current hyponatremia is likely due to excess water intake.Though he also has risk factors for SIADH based on other labs findings it is less likely,but will have to wait for urine osmolality to conclusively r/o or ri. We will continue to monitor serum Sodium q4h daily. #Poorly controlled Hypothyroidism:No concerns for Myxedema coma.No hypothermia,no confusion, hemodynamically stable. Will continue with Levothyroxine 150 mcg oral daily,it has been increased by 25 mcg. Repaet TSH In 1 week to accordingly adjust the dose.Given his age. #Hypertension:Continue Neefidipine 90 mg po daily. #Code Status :Full code # DVT PPX: lovenox 40 mg sc daily #Disposition :Home #Anticipated Discharge: 05/12 Attestations Medical Necessity Statement*: Patient needs to be in hospital for the management of chronic symptomatic hyponatremia ,Hypothyroidism. Coding Level of Care Code Acute Data Reduction Technician for [facility] Diagnoses Chronic hyponatremia E87.1 Hypothyroidism E03.9 Hypertension I10 Hypertension type: essential hypertension Aortic stenosis I35.0 Cardiac valve disease etiology: nonrheumatic Pulmonary hypertension I27.20 Anemia D64.9
[2020-05-10 12:50] LABS: Sodium 124 mmol/L (136-145)
[2020-05-10] MEDS: fixodent 39 gm Tube 1 APPLIC DENTAL (13:39)
[2020-05-10] MEDS: LORazepam 1 mg Tablet PO ×2 (15:35→19:39)
[2020-05-10] MEDS: atorvastatin 40 mg Tablet 20 MG PO (17:49)
[2020-05-10] MEDS: tamsulosin 0.4 mg Capsule PO (17:49)
[2020-05-10 21:07] LABS: Sodium 125 mmol/L (136-145)
--- NOTE | 2020-05-10 23:26 | PC.NURSE ---
PT ARRIVED TO ROOM 103 VIA WHEELCHAIR. PT TRANSFERRED TO BED. PT ORIENTATED TO ROOM. PT DENIES PAIN AT THIS TIME. WILL CONTINUE TO MONITOR.
[2020-05-11] VITALS: BP 177/74; PULSE 75; RESP 24; O2SAT 93
--- NOTE | 2020-05-11 01:48 | PC.NURSE ---
PT IS CONFUSED. PT IS TRYING TO GET OUT OF BED. PT PULLED OFF TELE AND REFUSED TO PUT IT BACK ON. WILL CONTINUE TO MONITOR.
[2020-05-11 03:56] VITALS: BP 160/98; PULSE 93; RESP 18; TEMP 37; O2SAT 98
[2020-05-11] MEDS: HYDROcodone-acetaminophen 10-325 mg Tablet 1 TAB PO ×2 (04:33→12:55)
--- NOTE | 2020-05-11 05:00 | PC.NURSE ---
PT PULLED OUT HIS IV. NEW 20G TO THE RIGHT FA. IV FLUSHES AND DRAWS. PT TOLERATED POORLY. WILL CONTINUE TO MONITOR.
--- NOTE | 2020-05-11 05:08 | PC.NURSE ---
PT STATES THAT HE IS HURTING 8/10 IN THE LEGS BILATERALLY. PRN NORCO WAS GIVEN. WILL CONTINUE TO MONITOR.
[2020-05-11 05:36] LABS: Basophils # 0.1 10^3/uL (0.0-0.1); Eosinophils # 0.2 10^3/uL (0.0-0.8); Eosinophils % 1.9 %; Hematocrit 36.5 % (42.0-52.0); Hemoglobin 12.4 g/dL (11.7-16.6); Lymphocytes # 1.4 10^3/uL (0.8-4.8); Lymphocytes % 15.7 %; Mean Corpuscular Hemoglobin 31.3 pg (28.0-34.0); Mean Corpuscular Volume 92.2 fL (80-94); Mean Platelet Volume 10.4 fL (7.4-10.4); Monocytes # 0.9 10^3/uL (0.2-0.9); Monocytes % 9.4 %; Neutrophils # 6.46 10^3/uL (1.8-7.7); Neutrophils % 71.8 %; Nucleated Red Blood Cells % 0 %; Platelet Count 365 10^3/cmm (130-400); Red Blood Count 3.96 10^6/uL (4.1-5.3); Red Cell Distribution Width 12.5 % (12.1-15.1)
--- NOTE | 2020-05-11 05:40 | PC.NURSE ---
patient confused this morning and trying to get out of bed without assistance. Will not leave telemetry in place. Bed alarm set.
--- NOTE | 2020-05-11 06:12 | PM.PN ---
Subjective Subjective: Interval history: anxious, leg pains. no n/v/f/c/davis/d/sob/cough Medications: Reviewed: Yes Medication Review Details: Current Medications Hydrocodone Bitart/Acetaminophen (Hydrocodone-Acetaminophen 10-325 Mg Tablet) 1 tab PO Q4H PRN PRN Reason: pain Last Admin: 05/11/20 04:33 Dose: 1 tab Documented by: Aspirin (Aspirin 81 Mg Ec Tablet) 81 mg PO DAILY@07 [facility] Last Admin: 05/10/20 06:11 Dose: 81 mg Documented by: Atorvastatin Calcium (Atorvastatin 40 Mg Tablet) 20 mg PO DAILY@18 [facility] Last Admin: 05/10/20 17:49 Dose: 20 mg Documented by: Denture Adhesive (Fixodent 39 Gm Tube) 1 applic DENTAL PRN PRN PRN Reason: denture adhesive Last Admin: 05/10/20 13:39 Dose: 1 applic Documented by: Docusate Sodium (Docusate Sodium 100 Mg Capsule) 100 mg PO BID [facility] Last Admin: 05/10/20 16:39 Dose: Not Given Documented by: Enoxaparin Sodium (Enoxaparin 40 Mg/0.4 Ml Syringe) 40 mg SUBCUT Q24H [facility] Last Admin: 05/10/20 23:34 Dose: 40 mg Documented by: Sodium Chloride (Sodium Chloride 0.9%) 1,000 mls @ 100 mls/hr IV .Q10H [facility] Last Admin: 05/09/20 20:34 Dose: Not Given Documented by: Levothyroxine Sodium (Levothyroxine 150 Mcg Tablet) 150 mcg PO DAILY@06 [facility] Last Admin: 05/10/20 06:11 Dose: 150 mcg Documented by: Lorazepam (Lorazepam 1 Mg Tablet) 1 mg PO PRN PRN PRN Reason: Anxiety Last Admin: 05/10/20 19:39 Dose: 1 mg Documented by: Nifedipine (Nifedipine Er (24 Hr) 30 Mg Tablet) 90 mg PO DAILY@06 [facility] Last Admin: 05/10/20 04:05 Dose: 90 mg Documented by: Tamsulosin HCl (Tamsulosin 0.4 Mg Capsule) 0.4 mg PO DAILY@18 [facility] Last Admin: 05/10/20 17:49 Dose: 0.4 mg Documented by: Vitals/I&O/Wt Last Vital Signs Temp 98.6 F 05/11/20 03:56 Pulse 93 05/11/20 03:56 Resp 18 05/11/20 03:56 BP 160/98 05/11/20 03:56 Pulse Ox 98 05/11/20 03:56 05/10/20 05/10/20 05/11/20 14:59 22:59 06:59 Intake Total 390 / 390 690 / 1080 Output Total 1300 / 1300 2050 / 3350 350 / 3700 Balance -910 / -910 -1360 / -2270 -350 / -2620 Weight last 48 hrs Weight 83.461 kg Physical Exam Narrative: EXAM NARRATIVE: comfortable in bed, NARD vs noted-BP and HR increased heent- nc/at neck supple lungs crackles bl heart reg, +THERON abd soft, nt, nd, +BS ext- trace ankle edema neuro- anxious, a,a, o x 1-2 pulses weak DP and PT exam conducted by RN- telemedicine visit Data : 05/11/20 04:40 05/10/20 18:00 A&P Additional A&P Information 1. Euvolemic hyponatremia -baseline na appears under 130. he has many risk factors for hyponatremia: a. he has hypothyroidism- i am not certain that he takes his levothyroxine daily b. and on lasix c. H/o emphysema- check cxr d. psych meds can inc ADH secretion and give a SIADH picture e. I am concened that he drinks a a lot of water rec- cont fluid restriction monitor na, cr bid -f/u am cortisol for completion (my suspicion for adrenal insufficiency is very low) -would be atypical w/ HTN 2. hypertension restart lisinopril 3.cr 1.2 at 80 yrs old is CKD stage 3 4. anxiety per medicine please call with any questions- [phone] Sharan Rainey MD [facility] Attestations Medical Necessity Statement*: htn, hyponatremia, ckd stage 3, anxiety Time Spent in Patient Care: 16 - 35 minutes Coding Level of Care Code Acute Porcelain Finish Sprayer for Arian Davis
--- NOTE | 2020-05-11 06:19 | XRR_ITS ---
PROCEDURE INFORMATION: Exam: XR Chest, 2 Views Exam date and time: 05/11/2020 6:39 AM Age: 80 years old Clinical indication: Cough; Additional info: Cough, emphysema HX, hyponatremia TECHNIQUE: Imaging protocol: XR of the chest Views: 2 views. COMPARISON: CR XR chest 1V portable [id number] 02/23/2020 5:13 PM FINDINGS: Lungs: Small benign calcified granulomas are present in the right lung. Otherwise lungs are clear. Pleural space: Unremarkable. No pleural effusion. No pneumothorax. Heart/Mediastinum: The heart is not enlarged. There is calcification of the aortic arch. Bones/joints: Bilateral shoulder prosthesis are present. XR/XR chest 2V* [id number] IMPRESSION: No acute abnormalities are seen in the chest.
[2020-05-11] MEDS: NIFEdipine ER (24 hr) 30 mg Tablet 90 MG PO (06:23)
[2020-05-11] MEDS: aspirin 81 mg EC Tablet PO (06:23)
[2020-05-11] MEDS: levothyroxine 150 mcg Tablet PO (06:23)
[2020-05-11 07:33] VITALS: BP 151/71; PULSE 70; RESP 18; TEMP 36.9; O2SAT 97
[2020-05-11 08:00] LABS: Blood Urea Nitrogen 14 mg/dL (8-23); Carbon Dioxide 21 mmol/L (22-29); Chloride 92 mmol/L (98-107); Glucose 96 mg/dL (65-115); Osmolality Calculated 260 mOsm/kg (285-295); Sodium 125 mmol/L (136-145)
--- NOTE | 2020-05-11 08:00 | PC.NURSE ---
patient resting in bed at this time. assessment performed as charted. bed alarm reset.
[2020-05-11] MEDS: lisinopril 20 mg Tablet 40 MG PO (08:40)
[2020-05-11] MEDS: docusate sodium 100 mg Capsule PO ×2 (08:43→17:08)
[2020-05-11] MEDS: sodium chloride 1 gm Tablet PO ×2 (09:52→14:08)
[2020-05-11 11:47] LABS: Potassium, Radom Urine 26 mmol/L; Urine Creatinine 94 mg/dL (39-259); Urine Protein Random 18 mg/dL; Urine Random Chloride 39 mmol/L; Urine Random Sodium 60 mmol/L
--- NOTE | 2020-05-11 12:00 | PC.NURSE ---
patient up out of bed, patient used restroom and wanted to sit in chair. Patient was stand by assist to the chair.
[2020-05-11] MEDS: LORazepam 1 mg Tablet PO (12:55)
[2020-05-11 14:29] VITALS: BP 151/71; PULSE 70; RESP 18; O2SAT 98
[2020-05-11 15:29] LABS: Alanine Aminotransferase 22 U/L (0-41); Albumin Level 4.6 g/dL (3.5-5.2); Alkaline Phosphatase 95 IU/L (40-130); Anion Gap 16.7 (5-19); Aspartate Amino Transferase 42 U/L (0-40); Blood Urea Nitrogen 19 mg/dL (8-23); Calcium 9.3 mg/dL (8.5-10.5); Carbon Dioxide 22 mmol/L (22-29); Chloride 94 mmol/L (98-107); Globulin 2.8 g/dL (1.3-4.6); Glucose 106 mg/dL (65-115); Osmolality Calculated 269 mOsm/kg (285-295); Potassium 4.7 mmol/L (3.5-5.1); Sodium 128 mmol/L (136-145); Total Bilirubin 0.3 mg/dL (0.15-1.2); Total Protein 7.4 g/dL (6.6-8.7); Uric Acid 4.1 mg/dL (3.4-7.0)
--- NOTE | 2020-05-11 16:00 | PC.NURSE ---
patient had an unevenful shift. patient up and down between laying down in the bed to sitting on the sit, sitting in the chair, and ambulating to the restroom.
--- NOTE | 2020-05-11 17:00 | PC.NURSE ---
patient at bedside. dr. Fitzpatrick at bedside to discuss discharge with the patient and .
[2020-05-11] MEDS: tamsulosin 0.4 mg Capsule PO (17:08)
[2020-05-11] MEDS: atorvastatin 40 mg Tablet 20 MG PO (17:08)
--- NOTE | 2020-05-11 17:15 | P.DS_ITS ---
Discharge Providers Date of Admission: 05/09/20 21:10 Date of Discharge: May 11, 2020 Attending Provider at Admission: Kaylin Chen MD Attending Provider at Discharge: Elfego Fitzpatrick MD Primary Care Provider: Robert Snell DO Diagnoses at Discharge Discharge Diagnosis (1) Chronic hyponatremia: (2) Hypothyroidism: (3) Hypertension: Qualifiers: Hypertension type: essential hypertension Qualified Code(s): I10 - Essential (primary) hypertension (4) Aortic stenosis: Qualifiers: Cardiac valve disease etiology: nonrheumatic Qualified Code(s): I35.0 - Nonrheumatic aortic (valve) stenosis (5) Pulmonary hypertension: (6) Anemia: Reason for Visit Reason for Visit: Anxiety Attk. Hospital Course Hospital Course 80 year old male with pmh of Anxiety , Aortic stenosis, Bilateral carotid artery stenosis, CAD,HTN, Hypothyroidism, Pulmonary htn Severe hearing loss was admit karthikeyan with c/o of feeling very anxious. Patient is stating that at home he has been very fidgety and was not able to stay comfortable so he presented to the hospital. He is denying falls, vomiting, nausea, chest pain, shortness of breath, fever but was endorsing lower extremity edema, constipation as well as drinking a lot of water and tea in a day, he was endorsing drinking half a gallon of tea with large amount of water.further work up done in ER revealed serum sodium of 120. patient was very agitated and kept asking for water, he was also experiencing urinary frequency.He was admitted for the management of symptomatic chronic hyponatremia. Reanal was on board and futher hyponatremia work up pointed mainly towards the diagnosis of chronic euvolemic hyponatremia likely 2/2 to primary po lydepsia. He drinks a large volume of water and tea throughout he day. His CT chest does show some evidence of emphysema. His TSH was high, T4 low, he takes opioids, antidepressants including amitriptyline and Citalopram.His urine Osmo is pending, however, his Sp Gr in his urine was low at 1.005 (equating to an osmolality of ~ 150). He denied edema, SOB or other high volume Sx. Throughout the admission, his Bp has been on the higer side. On review of his lab data, he has had a persistently low sodium for some time, between 126 and 130 since September of 2018 (oldest data). Since admission he was fluid restricted, and his sodium responded appropriately,later as per renal recommendations he was also started on 1 gm salt tablet TID.Though patient had numerous risk factors for SIADH including medications (both opioids and anti-depressants), emphysema, hypothyroidism, however, these are all characterized by high ADH and thus concentrated urine. Given the work up SIADH was less likely. For his Poorly controlled Hypothyroidism:there was no concerns for Myxedema coma.No hypothermia,no confusion, hemodynamically stable. Levothyroxine 150 mcg oral daily,was continued. it was increased by 25 mcg from his home dose of 125 mcg oral daily. Repaet TSH In 1 week was ordered accordingly adjust the dose.Given his age.On the day of discharge his serum sodium was 128( close to his baseline serum sod ium ) and he was asymptomatic. Patient was insistent on his discharge as we was missing his family during this holiday season.I tried to keep his in the hospital for few more days to complete hyponatermia ( only pending am cortisol, likelihood of adrenal insufficiency was low as his b/p was persistently on higher side throughout the hospital stay ). Given his insistence my choice was clear either discharge the patient for mostly completed chronic hyponatremia work up or let his sign AMA in distress.I decided to discharge the patient as signing AMA will put extra burden on him.Patient will follow his PCP in 1 week with repeat BMP and TSH.He was advised to restrict water intake to 1.5/2 Ls a day and avoid tea and toast diet and indulge in more healthy and balnced diet. Physical Exam Const: COMMON NORMALS: patient oriented x3 HENMT: COMMON NORMALS: normocephalic and atraumatic HEAD & SCALP: normocephalic and atraumatic Chest: CHEST: Yes Symmetrical chest wall rise Resp: COMMON NORMALS: normal respiratory effort and clear to auscultation bilaterally EFFORT & INSPECTION: Yes symmetric chest movement AUSCULTATION: clear to auscultation bilaterally Cardio: COMMON NORMALS: regular rate, regular rhythm, S1 normal heart sound present, S2 normal heart sound present and Peripheral pulses 2+ throughout RATE: regular rate RHYTHM: regular rhythm HEART SOUNDS: S1 normal heart sound present and S2 normal heart sound present PERIPHERAL PULSES: Peripheral pulses 2+ throughout GI: COMMON NORMALS: Normal to inspection, nondistended, normoactive bowel sounds present, Soft to palpation, non-tender, No hepatosplenomegaly present and no masses AUSCULTATION: Yes normoactive bowel sounds PALPATION: Yes Soft to palpation and Yes No hepatosplenomegaly present RECTAL EXAM: Yes deferred Extremity: COMMON NORMALS: no clubbing, cyanosis or edema and no pedal edema Neuro: COMMON NORMALS: patient oriented x3 Discharge Data Data Completed and Pending: Completed Studies During Hospitalization Category Date Time Status XR chest 2V* [id number] 6 Routine Exams 05/11/20 06:19 Completed Pending at discharge Category Date Time Status BMP [Basic [employer] lic Panel] AM LABS Lab 05/12/20 04:00 Ordered BMP [Basic [employer] lic Panel] AM LABS Lab 05/13/20 04:00 Ordered CBC Auto Diff [Co mplete Blood Count w/Auto] AM LABS Lab 05/12/20 04:00 Ordered CBC Auto Diff [Co mplete Blood Count w/Auto] AM LABS Lab 05/13/20 04:00 Ordered Osmolality Serum Stat Lab 05/09/20 18:30 Received Osmolality Urine Routine Lab 05/09/20 20:04 Received Labs from last 24 hours 05/11/20 05/11/20 05/11/20 15:03 10:35 10:35 WBC RBC Hgb Hct MCV MCH MCHC RDW Plt Count MPV Neut % (Auto) Lymph % (Auto) Robeson % (Auto) Eos % (Auto) Baso % (Auto) Neut # (Auto) Lymph # (Auto) Robeson # (Auto) Eos # (Auto) Baso # (Auto) Nucleated RBC % (a uto) Nucleated RBCs # Sodium 128 L Potassium 4.7 Chloride 94 L Carbon Dioxide 22 Anion Gap 16.7 BUN 19 Creatinine 1.3 H GFR Calculation Not Reportable Glucose 106 Calculated Osmolal ity 269 L Uric Acid 4.1 Calcium 9.3 Total Bilirubin 0.3 AST 42 H ALT 22 Alkaline Phosphata se 95 Total Protein 7.4 Albumin 4.6 Globulin 2.8 U Random Total Pro tein 18 Ur Random Sodium 60 Cancelled Ur Random Potassiu m 26 Ur Random Chloride 39 Urine Creatinine 94 05/11/20 05/11/20 05/10/20 04:40 04:40 18:00 WBC 9.0 RBC 3.96 L Hgb 12.4 Hct 36.5 L MCV 92.2 MCH 31.3 MCHC 34.0 RDW 12.5 Plt Count 365 MPV 10.4 Neut % (Auto) 71.8 Lymph % (Auto) 15.7 Robeson % (Auto) 9.4 Eos % (Auto) 1.9 Baso % (Auto) 1.0 Neut # (Auto) 6.46 Lymph # (Auto) 1.4 Robeson # (Auto) 0.9 Eos # (Auto) 0.2 Baso # (Auto) 0.1 Nucleated RBC % (a uto) 0 Nucleated RBCs # 0.0 Sodium 125 L 125 L Potassium 4.0 Chloride 92 L Carbon Dioxide 21 L Anion Gap 16.0 BUN 14 Creatinine 1.1 GFR Calculation Not Reportable Glucose 96 Calculated Osmolal ity 260 L Uric Acid Calcium 9.0 Total Bilirubin AST ALT Alkaline Phosphata se Total Protein Albumin Globulin U Random Total Pro tein Ur Random Sodium Ur Random Potassiu m Ur Random Chloride Urine Creatinine Vitals: Last Vital Signs Temp 98.4 F 05/11/20 07:33 Pulse 70 05/11/20 14:29 Resp 18 05/11/20 14:29 BP 151/71 05/11/20 14:29 Pulse Ox 98 05/11/20 14:29 Discharge Plan Discharge Patient Disposition: Home Condition: Stable Prescriptions: New sodium chloride 1 gram Tablet 1 g PO TID Qty: 30 RF: 0 levothyroxine 150 mcg Tablet 150 mcg PO DAILY@06 30 Days RF: 0 Continued budesonide-formoterol 160-4.5 mcg/actuation HFA aerosol inhaler 2 inh inhalation BID PRN (Reason: shortness of breath) RF: 0 hydrocodone-acetaminophen 10-325 mg tablet 1 tab PO Q4H PRN (Reason: pain) RF: 0 lactulose 10 gram/15 mL solution 20 gm PO BID Qty: 946 RF: 2 amitriptyline 150 mg tablet 150 mg PO DAILY@18 RF: 0 simvastatin 10 mg tablet 10 mg PO DAILY@18 RF: 0 aspirin [Aspirin Low Dose] 81 mg Tablet,Delayed Release (Dr/Ec) 81 mg PO DAILY@07 RF: 0 citalopram 20 mg tablet 20 mg PO DAILY@18 RF: 0 tamsulosin 0.4 mg capsule 0.4 mg PO DAILY@18 RF: 0 mupirocin 2 % Ointment 1 applic TOPICAL BID PRN (Reason: UNKNOWN) RF: 0 cyanocobalamin (vitamin B-12) [Vitamin B-12] 2,000 mcg Tablet Extended Release 2,000 mcg PO DAILY@07 RF: 0 lorazepam 1 mg tablet 1 mg PO PRN PRN (Reason: Anxiety) RF: 0 docusate sodium [Colace] 100 mg capsule 100 mg PO BID Qty: 30 RF: 0 multivitamin Tablet 1 tab PO DAILY@07 RF: 0 iron 325 mg (65 mg iron) Tablet 325 mg PO DAILY@07 RF: 0 hydroxyzine HCl 25 mg tablet 25 mg PO Q6H PRN (Reason: Anxiety) RF: 0 morphine 15 mg tablet 15 mg PO QID PRN (Reason: Pain) RF: 0 nifedipine 90 mg tablet extended release 90 mg PO DAILY@06 RF: 0 lisinopril 40 mg tablet 40 mg PO DAILY@18 RF: 0 Held furosemide 20 mg tablet 20 mg PO DAILY@18 RF: 0 Hold Instructions: Resume on 05/18/20. Discontinued levothyroxine 125 mcg tablet 125 mcg PO DAILY@06 RF: 0 Discharge Orders: Discharge Order (Routine); Ordered 05/11/20 Ordered By: Elfego Fitzpatrick Referrals: Robert Snell, [Primary Care Provider] - 1 week (Dr. Snell's office will be calling to schedule a hospital followup to be seen in 1 week and to have the following bloodwork done: BMP and TSH. If you haven't heard from them by Tuesday, Please give them a call, thank you) Discharge Diet: Regular Discharge Activity: Increase activity as tolerated Patient Instructions: Levothyroxine (By mouth), Hyponatremia (DC), Hypothyroidism (DC), Hyperkalemia (DC), Anemia (DC) Activity Restrictions/Additional Instructions: Patient has been instructed to cut back on his water intake to 1.5 Ls a day and to avoid tea and toast diet and to indulge in more balance diet.He will follow up with his PCP in a week time with a repeat BMP as well as repeat TSH and in a week time to readjust his levothyroxine dose,given his significantly elevated TSH and low Free T4 . Discharge Attestations Time Spent in Discharge Care*: greater than 30 min Specific Discharge Activities: educating patient, educating and/or supporting family/caregiver, discussing with insurance case manager/social workers/dc planners, documenting/other paperwork and evaluating patient/reviewing data Status at Discharge: Cognitive status at discharge: cognitively intact , Behavioral status at discharge: cooperative , Functional status at discharge: independent ambulation Overall status at discharge: patient is back to baseline Quality Metrics Clinical Quality Measures During this hospital stay, did patient experience: None Coding Level of Care Code Acute Denial Resolution Specialist for g Fwd Diagnoses Chronic hyponatremia E87.1 Hypothyroidism E03.9 Hypertension I10 Hypertension type: essential hypertension Aortic stenosis I35.0 Cardiac valve disease etiology: nonrheumatic Pulmonary hypertension I27.20 Anemia D64.9
[2020-05-11 17:38] VITALS: BP 151/71; PULSE 70; RESP 18; O2SAT 98
--- NOTE | 2020-05-11 18:15 | PC.NURSE ---
iv removed, tip intact, patient tolerated well. discharge instructions given to patient and . all questions answered at this time. sodium chloride tab given due to pharmacy being closed and patient needing to take a dose tonight. patient and verbalized an understanding. patient was escorted via wheelchair to door where private vehicle picked him up.
[2020-05-12 14:48] LABS: Osmolality Serum 253 mOsm/kg (278-305)
== END 2020-05-11 18:10 | disposition home or self-care (01) | DRG 641 ==
LOC: ER 20:05 → ICU 05-10 08:08 → CSU 05-10 22:06
PROVIDERS: Internal Medicine Nephrology; Student in an Organized Health Care Education/Training Program; Admitting Provider Internal Medicine; Emergency Provider Emergency Medicine; PCP Family Medicine; Visit Provider Internal Medicine
DX: E87.1 Hypo-osmolality and hyponatremia (principal); K59.09 Other constipation; F41.9 Anxiety disorder, unspecified; I35.0 Nonrheumatic aortic (valve) stenosis; M19.90 Unspecified osteoarthritis, unspecified site; I65.23 Occlusion and stenosis of bilateral carotid arteries; I25.2 Old myocardial infarction; I10 Essential (primary) hypertension; E03.9 Hypothyroidism, unspecified; I27.20 Pulmonary hypertension, unspecified; Z96.619 Presence of unspecified artificial shoulder joint; Z87.891 Personal history of nicotine dependence; E87.5 Hyperkalemia; D64.9 Anemia, unspecified
CPT/HCPCS: 12345; 36415; 71046; 80048; 80053; 82436; 82570; 83930; 83935; 84133; 84156; 84295; 84300; 84439; 84443; 84550; 85025; 93005; 96372; 99284; J1650; Q3014

== ENCOUNTER 2020-05-27 20:59 | Emergency (ER) | payer MEDICARE, OTHER, SELFPAY ==
--- NOTE | 2020-05-27 21:04 | XR_ITS ---
WS: [id number] Portable AP upright chest, 05/27/2020 Clinical Data: sob Comparison: PA and lateral chest, 05/11/2020. Findings: No nodules, masses or effusions are seen. The aortic arch and descending aorta are tortuous . The heart is normal. The pulmonary vascularity is not increased. Bilateral shoulder prostheses are present. XR/XR chest 1V portable [id number] Impression: Atherosclerosis.
[2020-05-27 21:12] VITALS: PULSE 87; RESP 16; TEMP 36.8; O2SAT 98; BMI 27.6
[2020-05-27 22:57] LABS: Basophils # 0.1 10^3/uL (0.0-0.1); Basophils % 0.8 %; Eosinophils # 0.3 10^3/uL (0.0-0.8); Eosinophils % 2.9 %; Hematocrit 33.3 % (42.0-52.0); Lymphocytes # 1.5 10^3/uL (0.8-4.8); Lymphocytes % 13.5 %; Mean Corpuscular Hemoglobin 31.1 pg (28.0-34.0); Mean Corpuscular Volume 94.1 fL (80-94); Mean Platelet Volume 9.8 fL (7.4-10.4); Monocytes # 0.8 10^3/uL (0.2-0.9); Monocytes % 7.2 %; Neutrophils # 8.33 10^3/uL (1.8-7.7); Neutrophils % 75.2 %; Nucleated Red Blood Cells % 0 %; Platelet Count 331 10^3/cmm (130-400); Red Blood Count 3.54 10^6/uL (4.1-5.3); Red Cell Distribution Width 12.7 % (12.1-15.1); White Blood Count 11.1 10^3/uL (4.0-10.0)
[2020-05-27 23:07] LABS: INR 1.06 (0.8-1.2)
[2020-05-27 23:25] LABS: Alanine Aminotransferase 15 U/L (0-41); Albumin Level 4.3 g/dL (3.5-5.2); Alkaline Phosphatase 83 IU/L (40-130); Aspartate Amino Transferase 23 U/L (0-40); Blood Urea Nitrogen 18 mg/dL (8-23); Calcium 9.6 mg/dL (8.5-10.5); Carbon Dioxide 25 mmol/L (22-29); Chloride 92 mmol/L (98-107); Globulin 2.8 g/dL (1.3-4.6); Glucose 120 mg/dL (65-115); NT Pro B Type Natriuretic Pept 209 pg/mL (0-450); Osmolality Calculated 263 mOsm/kg (285-295); Sodium 125 mmol/L (136-145); Total Bilirubin 0.3 mg/dL (0.15-1.2); Total Protein 7.1 g/dL (6.6-8.7)
--- NOTE | 2020-05-27 23:38 | ED_ITS ---
HPI - Anxiety General: Chief Complaint: Anxiety Stated Complaint: SOB Time Seen by Provider: 05/27/20 23:28 History of Present Illness: HPI narrative: Patient comes in complain about anxiety that occurs about 5:00 every night he said the medication he is taking nowadays is not helping him. He has not been able to get in to see Dr. Robert sethi about getting a prescription change done. Patient would like a prescription that is stronger last longer than what he is currently taking. complaint: anxiety Onset (ago): year(s) Severity: moderate Quality: constant Place: home History of similar episodes: Yes Provoking factors: none known Relieving factors: medication Exacerbating factors: nothing Associated symptoms: Reports no associated symptoms; Deny chest pain, chills, fever(s), headache(s), nausea or vomiting Review of Systems Const: Denies: fever(s), chills or body aches Eyes: Denies: change in vision or blurry vision ENMT: Denies: throat pain or nasal congestion Card: Denies: chest pain or dyspnea on exertion Resp: Denies: dyspnea, productive cough or non-productive cough GI: Denies: abdominal pain, nausea or vomiting : Denies: difficulty urinating Musc: Denies: extremity pain Skin/Breast: Denies: rash Neuro: Denies: headache(s) Psych: Reports: anxiety; Denies: depression Eddie/Lymph: Denies: easy bruising PFSH ED PFSH: Medical History Anxiety Aortic stenosis Arrhythmia Arthritis Bilateral carotid artery stenosis Heart attack History of fracture Hypertension Hypothyroidism Pulmonary hypertension Severe hearing loss Skin disease Surgical History History of appendectomy History of shoulder replacement History of tonsillectomy and adenoidectomy History of umbilical hernia repair S/P bilateral inguinal hernia repair Status post colonoscopy Family History Son Stroke Other Diabetes Hypertension Denies family history of CAD (coronary artery disease) Dementia Hyperlipidemia Chronic kidney disease (CKD) Anesthesia complication Bleeding disorder Cancer Social History Smoking and tobacco status: former smoker Alcohol intake: never Household members: spouse Marital status: Current occupational status: retired History of recent travel: No Physical Exam Const: COMMON NORMALS: no acute distress, average body habitus and patient oriented x3 HENMT: COMMON NORMALS: normocephalic HEAD & SCALP: normal to inspection and normocephalic FACE & SINUS: normal facial exam Eye: COMMON NORMALS: conjunctivae normal GENERAL EYE: appearance normal, both eyes and all related structures CONJUNCTIVA: Yes conjunctivae normal Neck/C-Spine: COMMON NORMALS: no JVD Chest: COMMONS NORMALS: normal inspection of the chest Resp: COMMON NORMALS: normal respiratory effort and clear to auscultation bilaterally AUSCULTATION: clear to auscultation bilaterally Cardio: COMMON NORMALS: no JVD, regular rate and regular rhythm RATE: regular rate RHYTHM: regular rhythm GI: COMMON NORMALS: Normal to inspection, nondistended, normoactive bowel sounds present Extremity: COMMON NORMALS: normal to inspection and full ROM Neuro: COMMON NORMALS: patient oriented x3 Course Vital Signs: Vital signs: Vital Signs Temperature 98.3 F 05/27/20 21:12 Pulse Rate 87 05/27/20 21:12 Respiratory Rate 16 05/27/20 21:12 Pulse Oximetry 98 05/27/20 21:12 MDM - Anxiety Lab Data: Labs: Lab Results 05/27/20 05/27/20 05/27/20 Range/Units 22:45 22:45 22:45 WBC 11.1 H (4.0-10.0) 10^3/ uL RBC 3.54 L (4.1-5.3) 10^6/u L Hgb 11.0 L (11.7-16.6) g/dL Hct 33.3 L (42.0-52.0) % MCV 94.1 H (80-94) fL MCH 31.1 (28.0-34.0) pg MCHC 33.0 (30.0-36.0) g/dL RDW 12.7 (12.1-15.1) % Plt Count 331 (130-400) 10^3/c mm MPV 9.8 (7.4-10.4) fL Neut % (Auto) 75.2 % Lymph % (Auto) 13.5 % Warren % (Auto) 7.2 % Eos % (Auto) 2.9 % Baso % (Auto) 0.8 % Neut # (Auto) 8.33 H (1.8-7.7) 10^3/u L Lymph # (Auto) 1.5 (0.8-4.8) 10^3/u L Warren # (Auto) 0.8 (0.2-0.9) 10^3/u L Eos # (Auto) 0.3 (0.0-0.8) 10^3/u L Baso # (Auto) 0.1 (0.0-0.1) 10^3/u L Nucleated RBC % (a uto) 0 % Nucleated RBCs # 0.0 /100WBC PT 14.10 (12.1-14.9) SECO NDS INR 1.06 (0.8-1.2) Sodium 125 L (136-145) mmol/L Potassium 5.0 (3.5-5.1) mmol/L Chloride 92 L (98-107) mmol/L Carbon Dioxide 25 (22-29) mmol/L Anion Gap 13.0 (5-19) BUN 18 (8-23) mg/dL Creatinine 1.1 (0.7-1.2) mg/dL GFR Calculation Not Reportable Glucose 120 H (65-115) mg/dL Calculated Osmolal ity 263 L (285-295) mOsm/k g Calcium 9.6 (8.5-10.5) mg/dL Total Bilirubin 0.3 (0.15-1.2) mg/dL AST 23 (0-40) U/L ALT 15 (0-41) U/L Alkaline Phosphata se 83 (40-130) IU/L NT-Pro-B Natriuret Pep 209 (0-450) pg/mL Total Protein 7.1 (6.6-8.7) g/dL Albumin 4.3 (3.5-5.2) g/dL Globulin 2.8 (1.3-4.6) g/dL Discharge Plan Discharge Patient Disposition: Home Clinical Impression: Chronic anxiety Condition: Stable Prescriptions: New diazepam 2 mg tablet 1 mg PO DAILY PRN (Reason: anxiety) Qty: 10 RF: 0 Discontinued lorazepam 1 mg tablet 1 mg PO PRN PRN (Reason: Anxiety) RF: 0 No Action budesonide-formoterol 160-4.5 mcg/actuation HFA aerosol inhaler 2 inh inhalation BID PRN (Reason: shortness of breath) RF: 0 hydrocodone-acetaminophen 10-325 mg tablet 1 tab PO Q4H PRN (Reason: pain) RF: 0 lactulose 10 gram/15 mL solution 20 gm PO BID Qty: 946 RF: 2 amitriptyline 150 mg tablet 150 mg PO DAILY@18 RF: 0 simvastatin 10 mg tablet 10 mg PO DAILY@18 RF: 0 aspirin [Aspirin Low Dose] 81 mg Tablet,Delayed Release (Dr/Ec) 81 mg PO DAILY@07 RF: 0 citalopram 20 mg tablet 20 mg PO DAILY@18 RF: 0 tamsulosin 0.4 mg capsule 0.4 mg PO DAILY@18 RF: 0 mupirocin 2 % Ointment 1 applic TOPICAL BID PRN (Reason: UNKNOWN) RF: 0 furosemide 20 mg tablet 20 mg PO DAILY@18 RF: 0 Hold Instructions: Resume on 05/18/20. cyanocobalamin (vitamin B-12) [Vitamin B-12] 2,000 mcg Tablet Extended Release 2,000 mcg PO DAILY@07 RF: 0 docusate sodium [Colace] 100 mg capsule 100 mg PO BID Qty: 30 RF: 0 multivitamin Tablet 1 tab PO DAILY@07 RF: 0 iron 325 mg (65 mg iron) Tablet 325 mg PO DAILY@07 RF: 0 hydroxyzine HCl 25 mg tablet 25 mg PO Q6H PRN (Reason: Anxiety) RF: 0 morphine 15 mg tablet 15 mg PO QID PRN (Reason: Pain) RF: 0 nifedipine 90 mg tablet extended release 90 mg PO DAILY@06 RF: 0 lisinopril 40 mg tablet 40 mg PO DAILY@18 RF: 0 sodium chloride 1 gram Tablet 1 g PO TID Qty: 30 RF: 0 levothyroxine 150 mcg Tablet 150 mcg PO DAILY@06 30 Days RF: 0 Discharge Orders: Discharge ED (Routine); Ordered 05/27/20 Ordered By: Orville Fox Referrals: Robert Sethi DO [Primary Care Provider] - Discharge Diet: Usual diet Discharge Activity: Resume usual activity Patient Instructions: Generalized Anxiety Disorder (ED) Activity Restrictions/Additional Instructions: Follow-up with Dr. Robert sethi see if he wants to continue this prescription that we wrote here in the ER. See if can get appointment with behavioral health care to see if they can help you with your chronic anxiety problems. Coding Level of Care Code ED Fire Department Battalion Chief for Arian Davis
[2020-05-27 23:45] VITALS: BP 108/66; PULSE 74; RESP 16; O2SAT 98
[2020-05-28 00:10] VITALS: RESP 18; O2SAT 98
== END 2020-05-28 00:11 | disposition home or self-care (01) ==
PROVIDERS: Emergency Medicine; Emergency Provider Nurse Practitioner Family; PCP Family Medicine
DX: F41.8 Other specified anxiety disorders (principal); Z79.82 Long term (current) use of aspirin; I10 Essential (primary) hypertension; Z87.891 Personal history of nicotine dependence; I70.90 Unspecified atherosclerosis
CPT/HCPCS: 12345; 71045; 80053; 83880; 85025; 85610; 99281; 99283

== ENCOUNTER 2020-06-14 15:38 | Emergency (ER) | payer MEDICARE, OTHER, SELFPAY ==
[2020-06-14] VITALS (7 sets, daily range): BP systolic 150–178; BP diastolic 68–100; PULSE 69–95; RESP 14–18; TEMP 36.8; O2SAT 96–98; BMI 27.3
--- NOTE | 2020-06-14 16:20 | W.ED.EXTPRO ---
HPI - Extremity Problem General: Chief complaint: Extremity Problem,Nontraumatic Stated complaint: L ARM SWELLING/BLEEDING Time Seen by Provider: 06/14/20 15:51 History of Present Illness: HPI Narrative: 80-year-old male who presents with a complaint of ecchymosis swelling and pruritus of his left arm. He has ecchymosis on his arm and is been itching and scratching at it him does not want examining him in some areas he is excoriated the skin open is exacerbated the ecchymosis as well. He has a few few areas on the upper chest and 1 of brown the umbilicus that is rather small. He is not on any blood thinners and only takes a baby aspirin daily. Denies any of the other injuries or falls he is not any GI blood loss or epistaxis. No bleeding in the gums that he is noted. Onset (ago): day(s) Location: left Relieving factors: nothing Exacerbating factors: nothing Associated symptoms: Deny arthralgias, chest pain, fever(s), myalgias, rash or short of breath Review of Systems Const: Denies: fever(s) ENMT: Denies: throat pain, ear or mastoid pain, nasal discharge or nasal congestion Card: Denies: chest pain Resp: Denies: dyspnea, productive cough or non-productive cough GI: Denies: abdominal pain, nausea, vomiting, hematemesis, coffee ground emesis, diarrhea, constipation, bloating, hematochezia or melena : Denies: flank pain, dysuria, urinary frequency or urinary urgency Skin/Breast: Denies: rash Eddie/Lymph: Reports: easy bruising [facility] PFSH: Medical History Anemia Anxiety Aortic stenosis Arrhythmia Arthritis Bilateral carotid artery stenosis Chronic constipation Chronic hyponatremia Heart attack History of fracture Hyperkalemia Hypertension Hypothyroidism Hypothyroidism Pulmonary hypertension Severe hearing loss Skin disease Surgical History History of appendectomy History of shoulder replacement History of tonsillectomy and adenoidectomy History of umbilical hernia repair S/P bilateral inguinal hernia repair Status post colonoscopy Family History Son Stroke Other Diabetes Hypertension Denies family history of CAD (coronary artery disease) Dementia Hyperlipidemia Chronic kidney disease (CKD) Anesthesia complication Bleeding disorder Cancer Social History Smoking and tobacco status: former smoker Alcohol intake: never Household members: spouse Marital status: Current occupational status: retired History of recent travel: No Physical Exam Const: COMMON NORMALS: no acute distress GENERAL APPEARANCE: cooperative and comfortable ORIENTATION/CONSCIOUSNESS: Yes awake, Yes oriented to person, Yes oriented to place and Yes oriented to time HENMT: COMMON NORMALS: normocephalic, atraumatic and hearing grossly normal bilaterally HEAD & SCALP: normocephalic and atraumatic Eye: COMMON NORMALS: Equal, round and reactive pupils present, EOMs intact bilaterally, conjunctivae normal and no scleral icterus CONJUNCTIVA: Yes conjunctivae normal PUPIL: Yes Equal, round and reactive pupils present Neck/C-Spine: COMMON NORMALS: no JVD Resp: COMMON NORMALS: normal respiratory effort, No retractions, No use of accessory muscles and clear to auscultation bilaterally AUSCULTATION: clear to auscultation bilaterally Cardio: COMMON NORMALS: no JVD, regular rate, regular rhythm and No murmurs present (Cardio) RATE: regular rate RHYTHM: regular rhythm GI: COMMON NORMALS: Soft to palpation and No hepatosplenomegaly present AUSCULTATION: Yes normoactive bowel sounds PALPATION: Yes Soft to palpation, No Tenderness to palpation present (GI), No Guarding due to palpation present (GI) and Yes No hepatosplenomegaly present Extremity: COMMON NORMALS: normal to inspection, capillary refill normal, no clubbing, cyanosis or edema, no calf tenderness and no pedal edema Neuro: SENSORIUM/ORIENTATION: Yes oriented to person, Yes oriented to place and Yes oriented to time Course Vital Signs: Vital signs: Vital Signs Temperature 98.2 F 06/14/20 18:24 Pulse Rate 95 06/14/20 19:38 Respiratory Rate 16 06/14/20 19:38 Blood Pressure 176/79 06/14/20 19:38 Pulse Oximetry 98 06/14/20 19:38 MDM - Extremity (Nontraumatic) MDM Narrative: Medical decision making narrative: Ecchymosis of the right arm with excoriations some abrasions that are open with serous drainage no active bleeding no sign of infection moderate swelling in the area but no induration. Is not warm to the touch there is also a cluster of small areas of ecchymotic skin changes on the upper sternum and left clavicle. 1 small area infra umbilical. BMP came back with somewhat surprising he had already been discharged we asked him to come back. He was hyponatremic which is chronic he was little bit lower than usual but he is asymptomatic of that. His potassium was 5 6 I checked with the lab and there was no significant analysis in the lab sample drawn. His globulin is elevated as well as his total protein. Serum protein electrophoresis is being sent out. We will have him follow-up with Dr. Mata on outpatient basis. When he returned here we will recheck a BMP give him a liter of fluids and given 1 amp of calcium gluconate. I am going to increase his Nifedical XL to 120 mg daily for his blood pressure decrease his lisinopril to 20 mg daily have him follow-up with his primary care doctor Lab Data: Labs: Lab Results 06/14/20 06/14/20 06/14/20 Range/Units 16:07 16:07 16:07 WBC 11.6 H (4.0-10.0) 10^3/ uL RBC 3.80 L (4.1-5.3) 10^6/u L Hgb 11.9 (11.7-16.6) g/dL Hct 35.7 L (42.0-52.0) % MCV 93.9 (80-94) fL MCH 31.3 (28.0-34.0) pg MCHC 33.3 (30.0-36.0) g/dL RDW 12.8 (12.1-15.1) % Plt Count 343 (130-400) 10^3/c mm MPV 10.1 (7.4-10.4) fL Neut % (Auto) 76.0 % Lymph % (Auto) 11.5 % Mcintosh % (Auto) 6.9 % Eos % (Auto) 4.7 % Baso % (Auto) 0.6 % Neut # (Auto) 8.81 H (1.8-7.7) 10^3/u L Lymph # (Auto) 1.3 (0.8-4.8) 10^3/u L Mcintosh # (Auto) 0.8 (0.2-0.9) 10^3/u L Eos # (Auto) 0.6 (0.0-0.8) 10^3/u L Baso # (Auto) 0.1 (0.0-0.1) 10^3/u L Nucleated RBC % (a uto) 0 % Nucleated RBCs # 0.0 /100WBC PT 14.00 (12.1-14.9) SECO NDS INR 1.04 (0.8-1.2) APTT 30.5 (23.9-36.7) SECO NDS Sodium 121 L (136-145) mmol/L Potassium 5.6 H (3.5-5.1) mmol/L Chloride 86 L (98-107) mmol/L Carbon Dioxide 26 (22-29) mmol/L Anion Gap 14.6 (5-19) BUN 19 (8-23) mg/dL Creatinine 1.2 (0.7-1.2) mg/dL GFR Calculation Not Reportable Glucose 113 (65-115) mg/dL Calculated Osmolal ity 255 L (285-295) mOsm/k g Calcium 9.7 (8.5-10.5) mg/dL Total Bilirubin 0.4 (0.15-1.2) mg/dL AST 27 (0-40) U/L ALT 16 (0-41) U/L Alkaline Phosphata se 100 (40-130) IU/L Total Protein 10.3 H (6.6-8.7) g/dL Albumin 4.8 (3.5-5.2) g/dL Globulin 5.5 H (1.3-4.6) g/dL 06/14/20 06/14/20 Range/Units 17:25 18:37 WBC (4.0-10.0) 10^3/ uL RBC (4.1-5.3) 10^6/u L Hgb (11.7-16.6) g/dL Hct (42.0-52.0) % MCV (80-94) fL MCH (28.0-34.0) pg MCHC (30.0-36.0) g/dL RDW (12.1-15.1) % Plt Count (130-400) 10^3/c mm MPV (7.4-10.4) fL Neut % (Auto) % Lymph % (Auto) % Mcintosh % (Auto) % Eos % (Auto) % Baso % (Auto) % Neut # (Auto) (1.8-7.7) 10^3/u L Lymph # (Auto) (0.8-4.8) 10^3/u L Mcintosh # (Auto) (0.2-0.9) 10^3/u L Eos # (Auto) (0.0-0.8) 10^3/u L Baso # (Auto) (0.0-0.1) 10^3/u L Nucleated RBC % (a uto) % Nucleated RBCs # /100WBC PT (12.1-14.9) SECO NDS INR (0.8-1.2) APTT (23.9-36.7) SECO NDS Sodium 122 L (136-145) mmol/L Potassium 5.4 H 5.5 H (3.5-5.1) mmol/L Chloride 87 L (98-107) mmol/L Carbon Dioxide 25 (22-29) mmol/L Anion Gap 15.4 (5-19) BUN 18 (8-23) mg/dL Creatinine 1.1 (0.7-1.2) mg/dL GFR Calculation Not Reportable Glucose 108 (65-115) mg/dL Calculated Osmolal ity 256 L (285-295) mOsm/k g Calcium 9.7 (8.5-10.5) mg/dL Total Bilirubin (0.15-1.2) mg/dL AST (0-40) U/L ALT (0-41) U/L Alkaline Phosphata se (40-130) IU/L Total Protein (6.6-8.7) g/dL Albumin (3.5-5.2) g/dL Globulin (1.3-4.6) g/dL Discharge Plan Discharge Patient Disposition: Home Clinical Impression: Superficial bruising of arm, Medication side effect, Hyponatremia, Hyperkalemia, Hypertension Condition: Stable Prescriptions: New mupirocin 2 % ointment 1 applic topical BID Qty: 22 RF: 0 Bactrim DS 800-160 mg tablet 1 tab PO BID 7 Days Qty: 14 RF: 0 Changed nifedipine 90 mg tablet extended release 120 mg PO DAILY@06 Qty: 0 RF: 0 lisinopril 40 mg tablet 20 mg PO DAILY@18 Qty: 0 RF: 0 Discontinued aspirin [Aspirin Low Dose] 81 mg Tablet,Delayed Release (Dr/Ec) 81 mg PO DAILY@07 RF: 0 No Action budesonide-formoterol 160-4.5 mcg/actuation HFA aerosol inhaler 2 inh inhalation BID PRN (Reason: shortness of breath) RF: 0 hydrocodone-acetaminophen 10-325 mg tablet 1 tab PO Q4H PRN (Reason: pain) RF: 0 lactulose 10 gram/15 mL solution See Rx Instructions .ROUTE .COMPLEX Qty: 946 RF: 2 amitriptyline 150 mg tablet 150 mg PO DAILY@18 RF: 0 simvastatin 10 mg tablet 10 mg PO DAILY@18 RF: 0 citalopram 20 mg tablet 20 mg PO DAILY@18 RF: 0 tamsulosin 0.4 mg capsule 0.4 mg PO DAILY@18 RF: 0 mupirocin 2 % Ointment 1 applic TOPICAL BID PRN (Reason: UNKNOWN) RF: 0 furosemide 20 mg tablet 20 mg PO DAILY@18 RF: 0 Hold Instructions: Resume on 05/18/20. cyanocobalamin (vitamin B-12) [Vitamin B-12] 2,000 mcg Tablet Extended Release 2,000 mcg PO DAILY@07 RF: 0 docusate sodium [Colace] 100 mg capsule 100 mg PO BID Qty: 30 RF: 0 multivitamin Tablet 1 tab PO DAILY@07 RF: 0 iron 325 mg (65 mg iron) Tablet 325 mg PO DAILY@07 RF: 0 hydroxyzine HCl 25 mg tablet 25 mg PO Q6H PRN (Reason: Anxiety) RF: 0 morphine 15 mg tablet 15 mg PO QID PRN (Reason: Pain) RF: 0 sodium chloride 1 gram Tablet 1 g PO TID Qty: 30 RF: 0 diazepam 2 mg tablet 1 mg PO DAILY PRN (Reason: anxiety) Qty: 10 RF: 0 Discharge Orders: Discharge ED (Routine); Ordered 06/14/20 Ordered By: Nathan Hough Referrals: Robert Snell, [Primary Care Provider] - Discharge Diet: Usual diet Discharge Activity: Increase activity as tolerated Activity Restrictions/Additional Instructions: Hold aspirin follow-up with your primary care doctor within the next week. Use Aquaphilic or Cetaphil after applying the topical antibiotic. Those are both available [id number]. Coding Level of Care Code ED Propagation Manager for Arian Fwd Exam Comprehensive
[2020-06-14 16:21] LABS: Basophils # 0.1 10^3/uL (0.0-0.1); Basophils % 0.6 %; Eosinophils # 0.6 10^3/uL (0.0-0.8); Eosinophils % 4.7 %; Hematocrit 35.7 % (42.0-52.0); Hemoglobin 11.9 g/dL (11.7-16.6); Lymphocytes # 1.3 10^3/uL (0.8-4.8); Lymphocytes % 11.5 %; Mean Corpuscular HGB Conc 33.3 g/dL (30.0-36.0); Mean Corpuscular Hemoglobin 31.3 pg (28.0-34.0); Mean Corpuscular Volume 93.9 fL (80-94); Mean Platelet Volume 10.1 fL (7.4-10.4); Monocytes # 0.8 10^3/uL (0.2-0.9); Monocytes % 6.9 %; Neutrophils # 8.81 10^3/uL (1.8-7.7); Nucleated Red Blood Cells % 0 %; Platelet Count 343 10^3/cmm (130-400); Red Cell Distribution Width 12.8 % (12.1-15.1); White Blood Count 11.6 10^3/uL (4.0-10.0)
[2020-06-14 16:29] LABS: INR 1.04 (0.8-1.2)
[2020-06-14 16:30] LABS: Partial Thromboplastin Time 30.5 SECONDS (23.9-36.7)
[2020-06-14 16:35] LABS: Alanine Aminotransferase 16 U/L (0-41); Albumin Level 4.8 g/dL (3.5-5.2); Alkaline Phosphatase 100 IU/L (40-130); Anion Gap 14.6 (5-19); Aspartate Amino Transferase 27 U/L (0-40); Blood Urea Nitrogen 19 mg/dL (8-23); Calcium 9.7 mg/dL (8.5-10.5); Carbon Dioxide 26 mmol/L (22-29); Chloride 86 mmol/L (98-107); Creatinine Clr Calc Pharmacy 51.1797; Globulin 5.5 g/dL (1.3-4.6); Glucose 113 mg/dL (65-115); Osmolality Calculated 255 mOsm/kg (285-295); Potassium 5.6 mmol/L (3.5-5.1); Sodium 121 mmol/L (136-145); Total Bilirubin 0.4 mg/dL (0.15-1.2); Total Protein 10.3 g/dL (6.6-8.7)
[2020-06-14] MEDS: sodium chloride 0.9% 1,000 ML 999 ML IV (17:30)
[2020-06-14] MEDS: calcium gluconate 0.1 gm/mL 10% SDV 10mL 1 GM IVP (17:30)
[2020-06-14] MEDS: hyDRALAzine 25 mg Tablet PO (17:57)
[2020-06-14 18:13] LABS: Anion Gap 15.4 (5-19); Blood Urea Nitrogen 18 mg/dL (8-23); Calcium 9.7 mg/dL (8.5-10.5); Carbon Dioxide 25 mmol/L (22-29); Chloride 87 mmol/L (98-107); Glucose 108 mg/dL (65-115); Osmolality Calculated 256 mOsm/kg (285-295); Potassium 5.4 mmol/L (3.5-5.1); Sodium 122 mmol/L (136-145)
[2020-06-14 19:03] LABS: Potassium 5.5 mmol/L (3.5-5.1)
[2020-06-16 12:44] LABS: PROTEIN, TOTAL 7.2 g/dL (6.1-8.1)
--- NOTE | 2020-06-16 13:32 | DCPLANNER ---
import manager had message to schedule a follow up appointment for patient with Dr. Mata. import manager called Elvie Bhatt, [facility], gave clinic patients information. import manager was told that patients information. Clinic will call patient with appointment information.
[2020-06-16 16:48] LABS: ALBUMIN 4.4 g/dL (3.8-4.8); ALPHA 1 GLOBULIN 0.4 g/dL (0.2-0.3); ALPHA 2 GLOBULIN 0.8 g/dL (0.5-0.9); BETA 1 GLOBULIN 0.4 g/dL (0.4-0.6); BETA 2 GLOBULIN 0.3 g/dL (0.2-0.5)
--- NOTE | 2020-06-24 13:29 | DCPLANNER ---
Patient has a follow up appointment scheduled for Tuesday, June 30, [address] Mata. Clinic will call patient with appointment information.
--- NOTE | 2020-08-12 07:40 | DCPLANNER ---
Patient had a follow up appointment scheduled with Dr. Mata - patient did attend appointment.
== END 2020-06-14 19:38 | disposition home or self-care (01) ==
PROVIDERS: Emergency Provider Family Medicine; PCP Family Medicine
DX: S40.021A Contusion of right upper arm, initial encounter (principal); T88.7XXA Unspecified adverse effect of drug or medicament, initial encounter; T50.905A Adverse effect of unspecified drugs, medicaments and biological substances, initial encounter; E87.1 Hypo-osmolality and hyponatremia; E87.5 Hyperkalemia; I10 Essential (primary) hypertension; Z87.891 Personal history of nicotine dependence
CPT/HCPCS: 12345; 80048; 80053; 84132; 84155; 84165; 85025; 85610; 85730; 96361; 96374; 99283; J0610; J7030

== ENCOUNTER 2020-06-19 15:32 | Observation (INO) | payer MEDICARE, OTHER, SELFPAY ==
[2020-06-19 15:37] VITALS: BP 151/66; PULSE 73; RESP 18; TEMP 36.3; O2SAT 98; BMI 26.3
--- NOTE | 2020-06-19 15:46 | ECG_ITS ---
[facility] Test Date: 2020-06-19 Pat Name: Landry Foster Department: Room: Gender: Male Insurance Executive: : 1940 Requested By: Jet De La Vega Order Number: [id number] Christy MD: Guanako Munoz M.D. Measurements Intervals [place] Rate: 75 P: 35 IA: 206 QRS: 40 QRSD: 141 T: 69 QT: 372 QTc: 416 Interpretive Statements SINUS RHYTHM INTRAVENTRICULAR CONDUCTION DELAY [130+ ms QRS DURATION] Compared to ECG 05/09/2020 18:03:11 First degree AV block no longer present Left ventricular hypertrophy no longer present ST (T wave) deviation no longer present Electronically Signed On 06-19-2020 18:06:08 EXECUTOR OF ESTATE by Guanako Munoz M.D. [id number]
--- NOTE | 2020-06-19 15:59 | ED_ITS ---
HPI - Recheck/Abnormal Lab/Rx General: Chief Complaint: Recheck/Abnormal Lab/Rx Stated Complaint: low sodium, sent from Dr. Snell in [place] Time Seen by Provider: 06/19/20 15:40 History of Present Illness: HPI narrative: The patient is an 80-year-old male who was told to come to the ER by his primary care physician for low sodium. He says he complains of chronic weakness and that he would get tired walking to the parking lot but that is not new. EMR shows his sodium was 122 on June 14. As well as potassium 5.5. He says he feels like his normal self except for the sodium. He does take Lasix daily. Review of Systems General: Reports: 10 or more systems reviewed and unremarkable except in HPI and below Const: Reports: fatigue Eyes: Denies: change in vision, blurry vision or eye redness ENMT: Denies: throat pain, swelling of lips/tongue, ear or mastoid pain or nasal congestion Card: Denies: chest pain, palpitations, irregular heart rhythm, edema, dyspnea on exertion or orthopnea Resp: Denies: dyspnea, productive cough or non-productive cough GI: Denies: abdominal pain, diarrhea or GI cramping : Denies: flank pain, urinary frequency or urinary urgency Musc: Denies: neck pain, back pain, extremity pain, joint pain, joint redness, limited range of motion or muscle weakness Skin/Breast: Denies: rash, pruritus, erythema, skin pain or skin tenderness Neuro: Denies: headache(s), numbness in extremities, weakness in extremities, sensory changes, difficulty walking, dizziness, confusion or Slurred speech present Psych: Denies: anxiety or depression Endo: Denies: polyuria All/Imm: Denies: urticaria, throat swelling or tongue swelling PFSH ED PFSH: Medical History Anemia Anxiety Aortic stenosis Arrhythmia Arthritis Bilateral carotid artery stenosis Chronic constipation Chronic hyponatremia Heart attack History of fracture Hyperkalemia Hypertension Hypothyroidism Hypothyroidism Pulmonary hypertension Severe hearing loss Skin disease Surgical History History of appendectomy History of shoulder replacement History of tonsillectomy and adenoidectomy History of umbilical hernia repair S/P bilateral inguinal hernia repair Status post colonoscopy Family History Son Stroke Other Diabetes Hypertension Denies family history of CAD (coronary artery disease) Dementia Hyperlipidemia Chronic kidney disease (CKD) Anesthesia complication Bleeding disorder Cancer Social History Smoking and tobacco status: former smoker Alcohol intake: never Household members: spouse Marital status: Current occupational status: retired History of recent travel: No Physical Exam Const: COMMON NORMALS: no acute distress, average body habitus, patient oriented x3, no limitations, healthy appearing, alert and well nourished GENERAL APPEARANCE: cooperative, comfortable, well kempt and well developed ORIENTATION/CONSCIOUSNESS: Yes awake, Yes oriented to person, Yes oriented to place and Yes oriented to time HENMT: COMMON NORMALS: normocephalic, external ears normal and Normal external nose present HEAD & SCALP: normal to inspection and normocephalic NOSE: Normal external nose present EXTERNAL EAR: Yes external ears normal MOUTH: Normal oral and palatal mucosa present THROAT: posterior oropharynx normal Eye: COMMON NORMALS: Equal, round and reactive pupils present and EOMs intact bilaterally GENERAL EYE: appearance normal, both eyes and all related structures PUPIL: Yes Equal, round and reactive pupils present Neck/C-Spine: COMMON NORMALS: full ROM, no lymphadenopathy, no meningeal signs and no JVD GENERAL: Yes normal visual inspection Lymph: LYMPHATIC: no lymphadenopathy noted Chest: COMMONS NORMALS: normal inspection of the chest and normal palpation of entire chest wall Resp: COMMON NORMALS: normal respiratory effort, No retractions, No use of accessory muscles, clear to auscultation bilaterally and percussion normal EFFORT & INSPECTION: Yes able to speak in complete sentences AUSCULTATION: clear to auscultation bilaterally PERCUSSION: percussion normal Cardio: COMMON NORMALS: no JVD, regular rate, regular rhythm, S1 normal heart sound present, S2 normal heart sound present and Peripheral pulses 2+ throughout RATE: regular rate RHYTHM: regular rhythm HEART SOUNDS: S1 normal heart sound present and S2 normal heart sound present PERIPHERAL PULSES: Peripheral pulses 2+ throughout GI: COMMON NORMALS: Normal to inspection, nondistended, normoactive bowel sounds present, Soft to palpation, non-tender and no masses INSPECTION: Yes normal to inspection PALPATION: Yes Soft to palpation : COMMON NORMALS: Yes no CVA tenderness BLADDER/KIDNEY EXAM: Yes no CVA tenderness Back/Pelvis: COMMON NORMALS: no CVA tenderness, thoracic and lumbar spine normal to inspection, no thoracic nor lumbar tenderness and thoraco-lumbar ROM normal Extremity: COMMON NORMALS: normal to inspection, full ROM, capillary refill normal, no joint enlargement and no pedal edema GENERAL: Yes normal exam except as noted Neuro: COMMON NORMALS: patient oriented x3, CN's II-XII intact bilaterally, moves all extremities, no focal motor deficits, no sensory deficits noted and gait normal SENSORIUM/ORIENTATION: Yes alert, Yes oriented to person, Yes oriented to place and Yes oriented to time MENINGEAL SIGNS: Yes no meningeal signs Psych: COMMON NORMALS: mental status grossly normal, Normal thought process present, cooperative, normal affect and speech normal APPEARANCE: Yes well kempt ATTITUDE: Yes calm SPEECH: Yes normal speech THOUGHT PROCESS: Nor mal thought process present Skin: COMMON NORMALS: no rashes or lesions noted GENERAL SKIN EXAM: no rashes or lesions noted Course Vital Signs: Vital signs: Vital Signs Temperature 98.0 F 06/19/20 20:04 Pulse Rate 102 H 06/19/20 20:10 Respiratory Rate 20 H 06/19/20 20:10 Blood Pressure 175/83 06/19/20 20:04 Pulse Oximetry 98 06/19/20 20:10 MDM - Recheck/Abnormal Lab/Rx MDM Narrative: Medical decision making narrative: The patient has continued hyponatremia at 123. Also hyperkalemia 5.6. Discussed with the hospitalist who accepts for admission Lab Data: Labs: Lab Results 06/19/20 06/19/20 06/19/20 Range/Units 16:03 16:03 16:03 WBC 8.1 (4.0-10.0) 10^3/ uL RBC 3.64 L (4.1-5.3) 10^6/u L Hgb 11.1 L (11.7-16.6) g/dL Hct 33.2 L (42.0-52.0) % MCV 91.2 (80-94) fL MCH 30.5 (28.0-34.0) pg MCHC 33.4 (30.0-36.0) g/dL RDW 12.8 (12.1-15.1) % Plt Count 328 (130-400) 10^3/c mm MPV 10.3 (7.4-10.4) fL Neut % (Auto) 73.9 % Lymph % (Auto) 11.8 % Loving % (Auto) 8.4 % Eos % (Auto) 4.8 % Baso % (Auto) 0.9 % Neut # (Auto) 6.01 (1.8-7.7) 10^3/u L Lymph # (Auto) 1.0 (0.8-4.8) 10^3/u L Loving # (Auto) 0.7 (0.2-0.9) 10^3/u L Eos # (Auto) 0.4 (0.0-0.8) 10^3/u L Baso # (Auto) 0.1 (0.0-0.1) 10^3/u L Nucleated RBC % (a uto) 0 % Nucleated RBCs # 0.0 /100WBC Sodium 123 L (136-145) mmol/L Potassium 5.6 H (3.5-5.1) mmol/L Chloride 89 L (98-107) mmol/L Carbon Dioxide 23 (22-29) mmol/L Anion Gap 16.6 (5-19) BUN 17 (8-23) mg/dL Creatinine 1.5 H (0.7-1.2) mg/dL GFR Calculation Not Reportable Glucose 107 (65-115) mg/dL Calculated Osmolal ity 258 L (285-295) mOsm/k g Calcium 9.9 (8.5-10.5) mg/dL Total Bilirubin 0.2 (0.15-1.2) mg/dL AST 29 (0-40) U/L ALT 19 (0-41) U/L Alkaline Phosphata se 95 (40-130) IU/L Troponin T Baselin e 54 H (0-15) ng/L NT-Pro-B Natriuret Pep 223 (0-450) pg/mL Total Protein 6.8 (6.6-8.7) g/dL Albumin 4.3 (3.5-5.2) g/dL Globulin 2.5 (1.3-4.6) g/dL TSH (0.27-4.20) uIU/ mL 06/19/20 Range/Units 16:03 WBC (4.0-10.0) 10^3/ uL RBC (4.1-5.3) 10^6/u L Hgb (11.7-16.6) g/dL Hct (42.0-52.0) % MCV (80-94) fL MCH (28.0-34.0) pg MCHC (30.0-36.0) g/dL RDW (12.1-15.1) % Plt Count (130-400) 10^3/c mm MPV (7.4-10.4) fL Neut % (Auto) % Lymph % (Auto) % Loving % (Auto) % Eos % (Auto) % Baso % (Auto) % Neut # (Auto) (1.8-7.7) 10^3/u L Lymph # (Auto) (0.8-4.8) 10^3/u L Loving # (Auto) (0.2-0.9) 10^3/u L Eos # (Auto) (0.0-0.8) 10^3/u L Baso # (Auto) (0.0-0.1) 10^3/u L Nucleated RBC % (a uto) % Nucleated RBCs # /100WBC Sodium (136-145) mmol/L Potassium (3.5-5.1) mmol/L Chloride (98-107) mmol/L Carbon Dioxide (22-29) mmol/L Anion Gap (5-19) BUN (8-23) mg/dL Creatinine (0.7-1.2) mg/dL GFR Calculation Glucose (65-115) mg/dL Calculated Osmolal ity (285-295) mOsm/k g Calcium (8.5-10.5) mg/dL Total Bilirubin (0.15-1.2) mg/dL AST (0-40) U/L ALT (0-41) U/L Alkaline Phosphata se (40-130) IU/L Troponin T Baselin e (0-15) ng/L NT-Pro-B Natriuret Pep (0-450) pg/mL Total Protein (6.6-8.7) g/dL Albumin (3.5-5.2) g/dL Globulin (1.3-4.6) g/dL TSH 6.68 H (0.27-4.20) uIU/ mL Discharge Plan Discharge Patient Disposition: Admitted As Inpatient Admit Provider: Isabel Gacria Coding Level of Care Code ED Cigar Making Machine Supervisor for Chg Fwd Exam Comprehensive
[2020-06-19] MEDS: sodium chloride 0.9% 1,000 ML 999 ML IV (16:16)
[2020-06-19 16:24] LABS: Basophils # 0.1 10^3/uL (0.0-0.1); Basophils % 0.9 %; Eosinophils # 0.4 10^3/uL (0.0-0.8); Eosinophils % 4.8 %; Hematocrit 33.2 % (42.0-52.0); Hemoglobin 11.1 g/dL (11.7-16.6); Lymphocytes % 11.8 %; Mean Corpuscular HGB Conc 33.4 g/dL (30.0-36.0); Mean Corpuscular Hemoglobin 30.5 pg (28.0-34.0); Mean Corpuscular Volume 91.2 fL (80-94); Mean Platelet Volume 10.3 fL (7.4-10.4); Monocytes # 0.7 10^3/uL (0.2-0.9); Monocytes % 8.4 %; Neutrophils # 6.01 10^3/uL (1.8-7.7); Neutrophils % 73.9 %; Nucleated Red Blood Cells % 0 %; Platelet Count 328 10^3/cmm (130-400); Red Blood Count 3.64 10^6/uL (4.1-5.3); Red Cell Distribution Width 12.8 % (12.1-15.1); White Blood Count 8.1 10^3/uL (4.0-10.0)
[2020-06-19 17:26] LABS: Troponin(5th) Baseline 54 ng/L (0-15)
[2020-06-19 17:27] LABS: Alanine Aminotransferase 19 U/L (0-41); Albumin Level 4.3 g/dL (3.5-5.2); Alkaline Phosphatase 95 IU/L (40-130); Anion Gap 16.6 (5-19); Aspartate Amino Transferase 29 U/L (0-40); Blood Urea Nitrogen 17 mg/dL (8-23); Calcium 9.9 mg/dL (8.5-10.5); Carbon Dioxide 23 mmol/L (22-29); Chloride 89 mmol/L (98-107); Globulin 2.5 g/dL (1.3-4.6); Glucose 107 mg/dL (65-115); NT Pro B Type Natriuretic Pept 223 pg/mL (0-450); Osmolality Calculated 258 mOsm/kg (285-295); Potassium 5.6 mmol/L (3.5-5.1); Sodium 123 mmol/L (136-145); Total Bilirubin 0.2 mg/dL (0.15-1.2); Total Protein 6.8 g/dL (6.6-8.7)
[2020-06-19] MEDS: LORazepam 0.5 mg Tablet PO (19:09)
[2020-06-19 19:15] VITALS: PULSE 98; RESP 20; O2SAT 99
--- NOTE | 2020-06-19 19:53 | P.HP_ITS ---
Providers/Chief Complaint Admitting Physician: Isabel Garcia Primary Care Provider: Robert Snell DO Chief Complaint: low sodium, sent from Dr. Snell in [place] History of Present Illness Landry Foster is a 80 year old male who has history of chronic hyponatremia, hypothyroidism, bipolar disorder requires multiple anxiolytics was admitted in April for anxiety and worsening hyponatremia. 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 Nephrology was also consulted who agreed with the plan, patient sodium improved gradually with fluid restriction. Patient is stating that today he went to his PCP, he noticed his sodium level to be low and asked him to go to the hospital. Patient is stating that he was feeling extremely weak in his legs after taking few steps, he has been very anxious. Is still drinking about 2 L of water every day with green tea, stating he goes to bathroom every 30 minutes. No motor weakness of upper or lower extremity vision changes facial droop choking on food chest pain shortness of breath diarrhea or vomiting. Diagnostics in the ER revealed Chronic hyponatremia, hyperkalemia, ALLYSSA, TSH 6 At the time of my evaluation NIH is 0 Patient was able to walk gait was tested He received 1 mg of Ativan because of his anxiety, patient received normal saline bolus in the ER Review of Systems Const: Reports: body aches, fatigue and malaise; Denies: fever(s) or chills Eyes: Denies: change in vision ENMT: Denies: throat pain Card: Denies: chest pain Resp: Denies: dyspnea GI: Denies: abdominal pain : Denies: flank pain Musc: Reports: muscle cramps Skin/Breast: Reports: lesions Neuro: Denies: headache(s) Psych: Reports: anxiety Endo: Reports: polyuria Eddie/Lymph: Denies: easy bruising All/Imm: Denies: urticaria Medications/Allergies Home Medications Medication Instructions Recorded Confirmed Last Taken Type amitriptyline 150 mg PO DAILY@0600 05/25/19 06/19/20 06/19/20 History citalopram 20 mg PO DAILY@18 05/25/19 06/19/20 06/19/20 History cyanocobalamin (vitamin B-12) 2,000 mcg PO DAILY@07 05/25/19 06/19/20 06/19/20 History [Vitamin B-12] furosemide 20 mg PO DAILY@0600 05/25/19 06/19/20 06/19/20 History mupirocin 1 applic TOPICAL BID PRN 05/25/19 06/19/20 07/22/19 History simvastatin 10 mg PO DAILY@18 05/25/19 06/19/20 06/18/20 History tamsulosin 0.4 mg PO DAILY@18 05/25/19 06/19/20 06/18/20 History docusate sodium [Colace] 100 mg PO BID #30 cap 05/28/19 06/19/20 05/09/20 Rx hydrocodone 10 mg-acetaminophen 1 tab PO Q4H PRN tab 06/05/19 06/19/20 06/19/20 History 325 mg tablet hydroxyzine HCl 25 mg PO Q6H PRN 05/09/20 06/19/20 05/09/20 16:00 History morphine 15 mg PO QID PRN 05/09/20 06/19/20 06/19/20 History lisinopril 20 mg PO DAILY@18 #0 tab 06/14/20 06/19/20 06/18/20 Rx nifedipine 120 mg PO DAILY@06 #0 tab 06/14/20 06/19/20 06/19/20 Rx budesonide-formoterol [Symbicort] See Rx Instructions .ROUTE .COMPLEX 06/19/20 06/19/20 Unknown History lactulose 30 ml PO BID@0600,1800 06/19/20 06/19/20 06/19/20 History levothyroxine 125 mcg PO DAILY@0600 06/19/20 06/19/20 06/19/20 History lorazepam 1 mg PO DAILY PRN 06/19/20 06/19/20 Unknown History Allergies Allergy/AdvReac Type Severity Reaction Status Date / Time No Known Allergies Allergy Verified 05/09/20 17:24 PFSH Acute PFSH: Medical History Anemia Anxiety Aortic stenosis Arrhythmia Arthritis Bilateral carotid artery stenosis Chronic constipation Chronic hyponatremia Heart attack History of fracture Hyperkalemia Hypertension Hypothyroidism Hypothyroidism Pulmonary hypertension Severe hearing loss Skin disease Surgical History History of appendectomy History of shoulder replacement History of tonsillectomy and adenoidectomy History of umbilical hernia repair S/P bilateral inguinal hernia repair Status post colonoscopy Family History Son Stroke Other Diabetes Hypertension Denies family history of CAD (coronary artery disease) Dementia Hyperlipidemia Chronic kidney disease (CKD) Anesthesia complication Bleeding disorder Cancer Social History Smoking and tobacco status: former smoker Alcohol intake: never Household members: spouse Marital status: Current occupational status: retired History of recent travel: No Vitals/I&O/Wt Last Vital Signs Temp 97.4 F L 06/19/20 15:37 Pulse 73 06/19/20 15:37 Resp 18 06/19/20 15:37 BP 151/66 06/19/20 15:37 Pulse Ox 98 06/19/20 15:37 06/19/20 06/19/20 06/19/20 06:59 14:59 22:59 Intake Total 1000 / 1000 Balance 1000 / 1000 Weight last 48 hrs Weight 78.471 kg Physical Exam Narrative: EXAM NARRATIVE: Very pleasant elderly male Who is euvolemic currently saturating well on room air No active distress Appears very anxious and fidgety he is constantly try to get out of bed and remove his gown however he is aware that he is anxious No active neurological deficits NIH 0 S1, S2 aortic systolic murmur right second intercostal space Abdomen soft nontender bowel sounds present Bilateral breath sounds without acute distress Lower extremity no edema gangrene ulcer Anxious mood No skin cellulitis gangrene or ulcer No joint swelling No active tremors Data : 06/19/20 16:03 06/19/20 16:03 A&P Assessment and plan (1) Chronic hyponatremia: Status: Acute (2) ALLYSSA (acute kidney injury): Status: Acute (3) Hyperkalemia: Status: Acute Additional A&P Information Chronic hyponatremia His baseline sodium seems to be around 120-128, less than 30 No active neurological changes however he is very anxious SIADH was ruled out on previous admission, cause was polydipsia which I think is the current etiology as well because of his excessive fluid intake and green tea he seems to have compulsion to drink a lot of water Clinically he is euvolemic I would continue him on regular diet, add salt tablets and fluid restrict, stop normal saline which was given in the ER Hold antipsychotics for now, Lasix was discontinued on previous admission Noticed abnormal TSH on previous admission his TSH was 25 current TSH is 6, levothyroxine dose was increased, Acute on chronic kidney This seems secondary to nephrotoxic agents, hold lisinopril For hyperkalemia I will give him Kayexalate Low risk for rhabdomyolysis, no recent falls or injuries Goals of care discussed with the patient Full code Regular diet DVT prophylaxis Heparin Attestations Medical Necessity Statement*: Anticipating discharge in less than 48 hours patient has chronic hyponatremia currently need overnight monitoring because of hyperkalemia and ALLYSSA Time Spent in Patient Care: (>than 50% of time spent in counselling and/or direct pt care on unit) . 50mins Coding Level of Care Code Acute Acoustic Intelligence Specialist for Arian Davis Diagnoses Chronic hyponatremia E87.1 ALLYSSA (acute kidney injury) N17.9 Hyperkalemia E87.5
[2020-06-19 20:04] VITALS: BP 175/83; PULSE 96; RESP 16; TEMP 36.7; O2SAT 97
--- NOTE | 2020-06-19 20:07 | PC.NURSE ---
Patient received from ED via wheelchair. Patient reports feeling really nervous and states, I have real bad anxiety anyway. He is also requesting something to help him sleep tonight. Informed Dr Chen of these things and that patient had arrived to the floor. Admission completed as documented. Denies pain or other needs presently. No other distresses observed.
[2020-06-19 20:10] VITALS: PULSE 102; RESP 20; O2SAT 98
[2020-06-19] MEDS: heparin 5,000 unit/mL INJ 1 mL 5000 UNIT SUBCUT (20:27)
[2020-06-19] MEDS: zolpidem 5 mg Tablet PO (20:27)
[2020-06-19] MEDS: sodium polystyrene sulfonate 15 gm/60 mL Btl PO (20:27)
[2020-06-19 20:43] LABS: Thyroid Stimulating Hormone 6.68 uIU/mL (0.27-4.20)
[2020-06-19] MEDS: fixodent 39 gm Tube 1 APPLIC DENTAL (22:26)
--- NOTE | 2020-06-19 22:30 | PC.NURSE ---
Patient requesting something to eat stating, I have not eaten anything all day. [place], pudding and drink provided. Patient exrpessed great thanks.
[2020-06-19 23:34] VITALS: BP 119/55; PULSE 80; RESP 19; TEMP 36.7; O2SAT 96
[2020-06-20 00:08] LABS: Vitamin B12 > 2000 pg/mL (232-1245)
[2020-06-20 03:59] VITALS: BP 180/69; PULSE 75; RESP 22; TEMP 36.3; O2SAT 97
[2020-06-20 04:42] LABS: Basophils # 0.1 10^3/uL (0.0-0.1); Eosinophils # 0.5 10^3/uL (0.0-0.8); Eosinophils % 6.8 %; Hematocrit 31.4 % (42.0-52.0); Hemoglobin 10.4 g/dL (11.7-16.6); Lymphocytes # 1.3 10^3/uL (0.8-4.8); Lymphocytes % 17.9 %; Mean Corpuscular HGB Conc 33.1 g/dL (30.0-36.0); Mean Corpuscular Volume 93.5 fL (80-94); Mean Platelet Volume 10.3 fL (7.4-10.4); Monocytes # 0.6 10^3/uL (0.2-0.9); Monocytes % 8.2 %; Neutrophils # 4.67 10^3/uL (1.8-7.7); Nucleated Red Blood Cells % 0 %; Platelet Count 301 10^3/cmm (130-400); Red Blood Count 3.36 10^6/uL (4.1-5.3); Red Cell Distribution Width 12.7 % (12.1-15.1); White Blood Count 7.1 10^3/uL (4.0-10.0)
[2020-06-20 04:53] LABS: Anion Gap 12.8 (5-19); Blood Urea Nitrogen 15 mg/dL (8-23); Calcium 9.3 mg/dL (8.5-10.5); Carbon Dioxide 25 mmol/L (22-29); Chloride 91 mmol/L (98-107); Glucose 89 mg/dL (65-115); Osmolality Calculated 258 mOsm/kg (285-295); Potassium 4.8 mmol/L (3.5-5.1); Sodium 124 mmol/L (136-145)
[2020-06-20] MEDS: NIFEdipine ER (24 hr) 30 mg Tablet 120 MG PO (05:04)
[2020-06-20] MEDS: levothyroxine 75 mcg Tablet 150 MCG PO (05:04)
[2020-06-20] MEDS: heparin 5,000 unit/mL INJ 1 mL 5000 UNIT SUBCUT (05:05)
[2020-06-20 07:35] VITALS: BP 157/72; PULSE 69; RESP 15; TEMP 36.4; O2SAT 95
[2020-06-20 08:59] LABS: Anion Gap 13.7 (5-19); Blood Urea Nitrogen 13 mg/dL (8-23); Calcium 9.6 mg/dL (8.5-10.5); Carbon Dioxide 25 mmol/L (22-29); Chloride 91 mmol/L (98-107); Glucose 123 mg/dL (65-115); Osmolality Calculated 261 mOsm/kg (285-295); Potassium 4.7 mmol/L (3.5-5.1); Sodium 125 mmol/L (136-145)
[2020-06-20] MEDS: sodium chloride 1 gm Tablet PO (09:25)
[2020-06-20 10:55] VITALS: BP 152/71; PULSE 82; RESP 15; TEMP 36.4; O2SAT 97
--- NOTE | 2020-06-20 12:30 | PC.CHAP ---
Pastoral Care Encounter/Spiritual Assessment Type of Contact [] Declined grill attendant visit [] Patient/Family/Request visit [] Outpatient visit [] Follow-up visit [] Physician referral [] Code/Alert [xx] Routine visit [] Staff referral [] Actively dying [] Patient sleeping [] Family support [] [] Out of room [] Palliative care [] [] Receiving care in room [] Pre-surgical visit [] Trauma [] Long length of stay [] ICU visit [] Other: Relational/Emotional Strength [xx] Patient feels connected with others/family/visitors/staff [] Distress [] Loneliness/isolation [] Abandonment Spirituality of Patient [xx] Person of [place] [xx] Attends Christian of their [place] [xx] Believes in Prayer [xx] Reads Bible or Caodaism materials [] There are Spiritual issues to be addressed Administration Physician Interventions [xx] Prayer [xx] Active listening [xx] Non-anxious presence [] Spiritual/emotional support [] Crisis/trauma care [] Spiritual counseling [] Bereavement support [] Provided bereavement packet [xx] Provided Bible/devotional materials [] Provided toy/stuffed animal, coloring book to patient or family member [] Provided Communion [] Anointing/[place] [] Salvation [xx] Completed spiritual assessment [] Other: Impact on Illness or Injury [] Angry [] Fearful [] Anxious [] Often cries [] Exhaustion [] Unable to work [] Unable to attend anglican [] Unable to walk/stand [] Unable to read [] Unable to drive [] Unable to eat/drink [] Unable to sleep [] Unable to be with family [] Patient intubated [] Other: Summary Doctor arrived in middle of prayer so grill attendant ended quickly and left. Time spent with patient 6 minutes
[2020-06-20 14:39] VITALS: BP 152/71; PULSE 82; RESP 15; TEMP 36.4; O2SAT 97
--- NOTE | 2020-06-20 21:06 | PM.DCS ---
Discharge Providers Date of Admission: 06/19/20 18:12 Date of Discharge: 2020 Attending Provider at Admission: Isabel Garcia Attending Provider at Discharge: Isabel Garcia Primary Care Provider: Robert Snell DO Diagnoses at Discharge Discharge Diagnosis (1) Chronic hyponatremia: Status: Acute (2) ALLYSSA (acute kidney injury): Status: Resolved (3) Hyperkalemia: Status: Resolved Reason for Visit Reason for Visit: low sodium, sent from Dr. Snell in [facility] Course Hospital Course 80 year old male who has history of chronic hyponatremia, hypothyroidism, bipolar disorder requires multiple anxiolytics was admitted in April for anxiety and worsening hyponatremia. 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 Nephrology was also consulted who agreed with the plan, patient sodium improved gradually with fluid restriction. Patient is stating that today he went to his PCP, he noticed his sodium level to be low and asked him to go to the hospital. Patient is stating that he was feeling extremely weak in his legs after taking few steps, he has been very anxious. Is still drinking about 2 L of water every day with green tea, stating he goes to bathroom every 30 minutes. No motor weakness of upper or lower extremity vision changes facial droop choking on food chest pain shortness of breath diarrhea or vomiting. Diagnostics in the ER revealed chronic hyponatremia, hyperkalemia, ALLYSSA, TSH 6 At the time of my evaluation NIH is 0. Patient was able to walk gait was tested. He received 1 mg of Ativan because of his anxiety, patient received normal saline bolus in the ER Patient continued to have hyponatremia. This was around patient's baseline. He was ambulating in room and on hallways. Was wanting to be discharged. Advised that he would require outpatient follow-up closely. Repeat BMP was ordered. Patient did not have any symptoms. Was ambulating without assistance and tolerating oral intake. Patient was also noted to have hyperkalemia which resolved. Patient was discahrged in stable condition. Physical Exam Narrative: EXAM NARRATIVE: Very pleasant elderly male Who is euvolemic currently saturating well on room air No active distress Appears very anxious and fidgety he is constantly try to get out of bed and remove his gown however he is aware that he is anxious No active neurological deficits NIH 0 S1, S2 aortic systolic murmur right second intercostal space Abdomen soft nontender bowel sounds present Bilateral breath sounds without acute distress Lower extremity no edema gangrene ulcer Anxious mood No skin cellulitis gangrene or ulcer No joint swelling No active tremors Discharge Data Vitals: Last Vital Signs Temp 97.6 F 06/20/20 14:39 Pulse 82 06/20/20 14:39 Resp 15 06/20/20 14:39 BP 152/71 06/20/20 14:39 Pulse Ox 97 06/20/20 14:39 Discharge Plan Discharge Patient Disposition: Home Condition: Stable Prescriptions: Continued hydrocodone-acetaminophen 10-325 mg tablet 1 tab PO Q4H PRN (Reason: pain) RF: 0 levothyroxine 125 mcg tablet 125 mcg PO DAILY@0600 RF: 0 lorazepam 1 mg tablet 1 mg PO DAILY PRN (Reason: Anxiety) RF: 0 Symbicort 160-4.5 mcg/actuation HFA aerosol inhaler See Rx Instructions .ROUTE .COMPLEX RF: 0 lactulose 10 gram/15 mL solution 30 ml PO BID@0600,1800 RF: 0 amitriptyline 150 mg tablet 150 mg PO DAILY@0600 RF: 0 simvastatin 10 mg tablet 10 mg PO DAILY@18 RF: 0 citalopram 20 mg tablet 20 mg PO DAILY@18 RF: 0 tamsulosin 0.4 mg capsule 0.4 mg PO DAILY@18 RF: 0 mupirocin 2 % Ointment 1 applic TOPICAL BID PRN (Reason: UNKNOWN) RF: 0 furosemide 20 mg tablet 20 mg PO DAILY@0600 RF: 0 Hold Instructions: Resume on 05/18/20. cyanocobalamin (vitamin B-12) [Vitamin B-12] 2,000 mcg Tablet Extended Release 2,000 mcg PO DAILY@07 RF: 0 docusate sodium [Colace] 100 mg capsule 100 mg PO BID Qty: 30 RF: 0 hydroxyzine HCl 25 mg tablet 25 mg PO Q6H PRN (Reason: Anxiety) RF: 0 morphine 15 mg tablet 15 mg PO QID PRN (Reason: Pain) RF: 0 nifedipine 90 mg tablet extended release 120 mg PO DAILY@06 Qty: 0 RF: 0 lisinopril 40 mg tablet 20 mg PO DAILY@18 Qty: 0 RF: 0 Discharge Orders: Discharge Order (Routine); Ordered 06/20/20 Ordered By: Isabel Garcia Other Ambulatory Orders: Basic Metabolic Panel (Routine) Timeframe: 1 Week Facility: [facility] - Location: Lab - Main Lab Ordered By: Isabel Garcia Discharge Diet: Regular Discharge Activity: Resume usual activity Patient Instructions: Hyponatremia Activity Restrictions/Additional Instructions: advised to return to hospital if any symptoms. Follow-up with primary care physician. Consider nephrology follow-up and outpatient referral. Discharge Attestations Time Spent in Discharge Care*: greater than 30 min Specific Discharge Activities: educating patient, educating and/or supporting family/caregiver, discussing with business case analyst/social workers/dc planners, documenting/other paperwork and evaluating patient/reviewing data Status at Discharge: Cognitive status at discharge: cognitively intact, Behavioral status at discharge: cooperative, Functional status at discharge: independent ambulation Overall status at discharge: patient is back to baseline Quality Metrics Clinical Quality Measures During this hospital stay, did patient experience: None Coding Level of Care Code Acute Lumber Planer for Arian Davis Diagnoses Chronic hyponatremia E87.1 ALLYSSA (acute kidney injury) N17.9 Hyperkalemia E87.5
== END 2020-06-20 15:15 | disposition home or self-care (01) ==
LOC: ER 15:43 → CSU 20:43
PROVIDERS: Internal Medicine; Admitting Provider Hospitalist; Emergency Provider Family Medicine; PCP Family Medicine; Visit Provider Hospitalist
DX: E87.1 Hypo-osmolality and hyponatremia (principal); N17.9 Acute kidney failure, unspecified; E87.5 Hyperkalemia; E03.9 Hypothyroidism, unspecified; F31.9 Bipolar disorder, unspecified; F41.9 Anxiety disorder, unspecified; M19.90 Unspecified osteoarthritis, unspecified site; I10 Essential (primary) hypertension; Z82.3 Family history of stroke; Z83.3 Family history of diabetes mellitus
CPT/HCPCS: 12345; 36415; 80048; 80053; 82607; 83880; 84443; 84484; 85025; 93005; 96360; 96372; 97161; 99282; 99285; G0378; J1644; J7030

== ENCOUNTER 2020-07-15 10:49 | Outpatient (CLI) | payer MEDICARE, OTHER, SELFPAY ==
[2020-07-15 13:30] LABS: Basophils # 0.1 10^3/uL (0.0-0.1); Basophils % 1.2 %; Eosinophils # 0.4 10^3/uL (0.0-0.8); Hematocrit 32.8 % (42.0-52.0); Hemoglobin 10.8 g/dL (11.7-16.6); Lymphocytes # 1.6 10^3/uL (0.8-4.8); Lymphocytes % 21.5 %; Mean Corpuscular HGB Conc 32.9 g/dL (30.0-36.0); Mean Corpuscular Hemoglobin 31.4 pg (28.0-34.0); Mean Corpuscular Volume 95.3 fL (80-94); Mean Platelet Volume 10.1 fL (7.4-10.4); Monocytes # 0.6 10^3/uL (0.2-0.9); Monocytes % 8.8 %; Neutrophils # 4.56 10^3/uL (1.8-7.7); Neutrophils % 63.1 %; Nucleated Red Blood Cells % 0 %; Platelet Count 314 10^3/cmm (130-400); Red Blood Count 3.44 10^6/uL (4.1-5.3); Red Cell Distribution Width 13.3 % (12.1-15.1); White Blood Count 7.2 10^3/uL (4.0-10.0)
[2020-07-15 13:54] LABS: Urine Random Sodium 53 mmol/L
[2020-07-15 14:17] LABS: Alanine Aminotransferase 16 U/L (0-41); Albumin Level 4.5 g/dL (3.5-5.2); Alkaline Phosphatase 82 IU/L (40-130); Anion Gap 11.9 (5-19); Aspartate Amino Transferase 22 U/L (0-40); Blood Urea Nitrogen 12 mg/dL (8-23); C Reactive Protein 0.3 mg/L (0.0-4.9); Calcium 9.1 mg/dL (8.5-10.5); Carbon Dioxide 28 mmol/L (22-29); Chloride 91 mmol/L (98-107); Ferritin 110 ng/mL (30-400); Globulin 2.7 g/dL (1.3-4.6); Glucose 93 mg/dL (65-115); Iron 81 ug/dL (59-158); Lactate Dehydrogenase 176 U/L (135-225); Osmolality Calculated 261 mOsm/kg (285-295); Percent Saturation 27.3 % (20-50); Potassium 4.9 mmol/L (3.5-5.1); Sodium 126 mmol/L (136-145); Total Bilirubin 0.3 mg/dL (0.15-1.2); Total Iron Binding Capacity 296 mcg/dl; Total Protein 7.2 g/dL (6.6-8.7); Unsaturated Iron Binding 215 ug/dL (112-347); Vitamin B12 1729 pg/mL (232-1245)
[2020-07-15 14:27] LABS: Erythrocyte Sedimentation Rate 10 mm/hr (0-10)
[2020-07-15 16:34] LABS: Cortisol Random 8.44 ug/dL (2.47-19.5)
--- NOTE | 2020-07-15 18:35 | ONC CON_ITS ---
Dr. Mata New Patient Note Patient: Landry Foster I Unit #: [id number]: [id number] Dicatated By: George Mata M.D.Date of Visit: Jul 15, 2020 Onc MED New Patient/Consult Referring Physician: Dr. Nathan Hough M.D. Chief Complaint: Hyponatremia. History of Present Illness: This is an 80-year-old man who is seen because of persistent hyponatremia. He has multiple medical illnesses including hypertension, hypothyroidism, carotid stenosis, and coronary artery disease. He also has chronic anxiety. During the past several months he has been having more frequent anxiety attacks. On 05/09/2020 he was admitted to the hospital with hyponatremia. He had presented to the emergency room feeling very anxious. His initial sodium was low at 120 mmol/L compared to 128 mmol/L in February 2020 and to 130 mmol/L in September 2018. The hyponatremia was thought to be dilutional associated with excessive fluid intake, and it did improve with fluid restriction. However, on 06/19/2020 he was again admitted to the hospital with hyponatremia. At that time his sodium was 123 mmol/L with creatinine elevated 1.5 mg/dL and potassium slightly high at 5.6 mmol/L. The hyponatremia was again felt to be associated with polydipsia. Since discharge from the hospital he has been taking a salt tablet twice a day. He complains that he gets tired, that has been going on for quite a while. He has limited activity. He complains that his legs get tired and weak after he walks a short distance. ECOG score is 2. He has good appetite. His weight is down close to 10 pounds. He has not had fever or night sweats. He sometimes feels hot in association with anxiety attacks. He does not complain of shortness of breath, cough, or chest pain. He sometimes has nausea. He also has some acid reflux, but that is adequately managed with Rolaids. He has had ongoing problems with constipation, though recently has bowel function has been adequate with laxatives. He has had pain in his left shoulder after recent fall. He has chronic low back pain, which has been managed by Dr. Burkett at pain clinic. He also reports having neck pain and pain in both legs. He does not complain of headache. He sometimes has dizziness. He complains that his fingers drop in both hands and he also complains that the ends of his toes feel like sandpaper. He has a fairly longstanding history of anxiety, but he says his anxiety attacks have been getting more frequent. He sleeps pretty well at night, but he does report having silly dreams . Past Medical History: His medical history consists of anemia, anxiety, carotid stenosis, chronic constipation, chronic hyponatremia, degenerative arthritis, history of myocardial infarction, history of peptic ulcer disease, hypertension, hypothyroidism, and mild aortic stenosis/aortic insufficiency. Past Surgical History: His surgical/procedural history consists of appendectomy, shoulder replacement bilaterally, surgical procedure for peptic ulcer disease, tonsillectomy, ventral hernia repair x 2, bilateral inguinal hernia repair with mesh in 2020, right carotid endarterectomy in 2018, EGD in 2017, and colonoscopy in 2016. Medications: Amitriptyline HCl 1 (50 mg) Tablet Oral daily, Citalopram Hydrobromide 1 (20 mg) Tablet Oral daily, Euthyrox 1 (150 mcg) Tablet Oral every am, Finasteride 1 (5 mg) Tablet Oral daily, Lisinopril 1 (10 mg) Tablet Oral daily, LORazepam 1 (1 mg) Tablet Oral t.i.d. PRN, Meloxicam 1 (7.5 mg) Tablet Oral daily, Morphine Sulfate 1 (15 mg) Tablet Oral STAT PRN, Multiple Vitamin 1 Tablet, chewable Oral daily, NIFEdipine ER Osmotic Release 1 (60 mg) Tablet SR 24 HR Oral daily, Tamsulosin HCl 2 (0.4 mg) Capsule Oral daily, Vitamin B-12 1 (5000 mcg) Tablet Dispersable Oral daily Allergies: No Known Allergies. Social History: Mr. Foster is . He is retired. He was previously employed as a [employer]. He has a history of smoking 1 pack of cigarettes daily for about 30 years. He quit smoking approximately age 45. He currently does not drink alcohol. He has had some alcohol use in the past, but never heavy. Family History: Father at 63 with some type of nervous system infection. Mother of lung cancer at age 50. One brother of heart disease. Another brother with complications of alcohol and drug use. Review Of Symptoms: Constitutional - He complains that he gets tired, that has been going on quite a while. He has limited activity. He has good appetite. His weight is down close to 10 pounds. He does not have fever or night sweats. He sometimes feels hot in association with anxiety attacks. ECOG score is 2, Eyes - His vision is declining. He says he needs cataract surgery, ENMT - He has hearing loss. No tinnitus. No sinus congestion/drainage. No mouth sores. No sore throat or difficulty swallowing, Hematologic/Lymphatic - He has some bruising, but that has improved since he stopped taking aspirin, Respiratory - No shortness of breath. No cough. No pleuritic pain or hemoptysis, Cardiovascular - No angina pain. No palpitations, Gastrointestinal - He sometimes has nausea. He also has some acid reflux, but adequately managed with Rolaids. He has constipation, but bowel function has been adequate with laxatives. He has not been aware of any blood in the stool or black stools, Genitourinary (M) - Bladder function has been pretty good with tamsulosin, Musculoskeletal - He has been having pain in his left shoulder after recent fall. He also has chronic back pain, and he has been managed at pain clinic. He has some pain in his legs and he also reports having neck pain, Integumentary - He has generalized itching. He also was treated for a cutaneous fungal infection on his back, Neurologic - No headache. He sometimes has dizziness. No numbness or tingling. He complains that his fingers tend to draw up in both hands. He also complains that the ends of his toes feel like sandpaper. No other focal neurologic symptoms, Psychiatric - He has anxiety attacks which have been getting more frequent. He says he sleeps okay, but he has silly dreams . Vital Signs: Performed on Jul 15, 2020 11:58: 2, 0, 0.00, 0.00 sq.m, 100 %, 70 /min, 18 /min, 149/61 mm(hg) (HIGH), 98.4 F, and 175.8 lbs (HIGH). Physical Examination: Constitutional - He appears anxious, and he appears somewhat weak generally, Eyes - Sclerae nonicteric. Conjunctivae clear, ENMT - No lesions noted in the oral cavity, Neck - No mass or thyromegaly, Hematologic/Lymphatic - No cervical, clavicular, or axillary adenopathy, Respiratory - Lungs are clear with good air movement bilaterally, Cardiovascular - Heart rhythm is regular. There is a II/ systolic murmur. There is no gallop or rub noted, Abdomen - Nondistended but firm. Liver and spleen are not enlarged. There is no abdominal mass or ascites noted and there is no inguinal adenopathy, Back/Spine - No spine or CVA tenderness noted, Extremities - No edema. Posterior tibial pulses are palpable bilaterally, Integumentary - There are no suspicious skin lesions noted. There are several areas of hypopigmentation on his mid to lower back. There does not appear to be any skin eruption to correlate with the itching, Neurologic - He does not appear to have any focal neurologic deficit, but there does appear to be mild hyperreflexia in the lower extremities. Problem List: 1. Chronic hyponatremia, thought to be due to polydipsia. It does appear to be symptomatic. 2. He complains of tiredness/weakness in both legs. This may be related to the hyponatremia, but I am also concerned about the possibility of spinal canal stenosis. 3. He complains of generalized itching, but without associated skin eruption. He has been treated for cutaneous fungal infection on his back. 4. Degenerative arthritis/degenerative disease of the spine with chronic low back pain, managed at pain clinic. 5. Hypertension. 6. Hypothyroidism. 7. Carotid stenosis. 8. Coronary artery disease with history of myocardial infarction. 9. Mild aortic stenosis/aortic insufficiency by echocardiogram. 10. History of peptic ulcer disease. 11. Mild, chronic anemia. 12. Chronic anxiety, but recently with more frequent anxiety attacks. Problems Addressed with this Encounter and Plan: 1. Chronic hyponatremia. He complains of tiredness/weakness in both legs, which may be related. On inpatient evaluation this was felt to most likely be due to polydipsia. Other causes, particularly SIADH, still need to be considered. As such, he will have repeat serum chemistry studies today and I also will recheck his urine sodium. He will have further evaluation as indicated. 2. He has mild anemia. A specific cause has not been determined, but it does appear to be very longstanding. His laboratory studies will include CBC, reticulocyte count, LDH level, haptoglobin level, serum iron studies, and B12/folate levels. Signed By: George Mata M.D. <<Signature on File>>
[2020-07-16 03:38] LABS: Folate Level 19.6 ng/mL (4.5-32.2)
[2020-07-17 16:08] LABS: Osmolality Urine 177 mOsm/kg (50-1200)
== END 2020-07-15 10:50 | disposition home or self-care (01) ==
LOC: ONCMED 10:52
PROVIDERS: PCP Family Medicine; Visit Provider Internal Medicine Medical Oncology
DX: E87.1 Hypo-osmolality and hyponatremia (principal); R63.1 Polydipsia; M62.81 Muscle weakness (generalized); M51.36 Other intervertebral disc degeneration, lumbar region; G89.29 Other chronic pain; M54.5 Low back pain; I10 Essential (primary) hypertension; E03.9 Hypothyroidism, unspecified; I65.23 Occlusion and stenosis of bilateral carotid arteries; I25.10 Atherosclerotic heart disease of native coronary artery without angina pectoris; I25.2 Old myocardial infarction; I35.0 Nonrheumatic aortic (valve) stenosis; D50.9 Iron deficiency anemia, unspecified; F41.9 Anxiety disorder, unspecified; Z87.11 Personal history of peptic ulcer disease; Z79.899 Other long term (current) drug therapy
CPT/HCPCS: 36415; 80053; 82533; 82607; 82728; 82746; 83010; 83540; 83550; 83615; 83735; 83935; 84300; 85025; 85045; 85651; 86140; 99204

== ENCOUNTER → 2020-07-29 13:30 | Outpatient (BNVA) | payer MEDICARE, OTHER, SELFPAY | PROVIDERS: PCP Family Medicine; Referring Provider Nurse Practitioner; Visit Provider Orthopaedic Surgery | DX: M25.512 Pain in left shoulder (principal) | CPT/HCPCS: 73030 ==

== ENCOUNTER → 2020-08-05 13:03 | Outpatient (BNVA) | payer MEDICARE, OTHER, SELFPAY | PROVIDERS: PCP Family Medicine; Referring Provider Family Medicine; Visit Provider Specialist | DX: E87.1 Hypo-osmolality and hyponatremia (principal); G31.84 Mild cognitive impairment of uncertain or unknown etiology; Z87.891 Personal history of nicotine dependence | CPT/HCPCS: 96116; 99204 ==

== ENCOUNTER 2020-08-15 10:59 | Outpatient (CLI) | payer MEDICARE, OTHER, SELFPAY ==
--- NOTE | 2020-08-15 11:45 | MR_ITS ---
WS: [id number] MRI BRAIN WITHOUT CONTRAST HISTORY: F03.90 - Unspecified dementia without behavioral disturbance COMPARISON: None available. TECHNIQUE: Diffusion imaging, multiplanar T1, T2 and FLAIR imaging obtained. No evidence for acute infarct or hemorrhage. Cronin-white matter differentiation is normal. Moderately severe chronic microvascular ischemic changes throughout the white matter. Confluent and p atchy periventricular white matter disease. Mild ischemic changes in the LEFT valeria. Mild cerebral atr ophy. Ventricles and extra-axial spaces are normal. No inferior displacement of cerebellar tonsils. The sella turcica and pituitary gland are unremarkabl e. Posterior fossa is also unremarkable. Dural venous sinuses and [place] of [place] demonstrate no abnormality on this unenhanced studies. Paranasal sinuses: Clear. Mastoid air cells: Normal. Calvarium and scalp: Intact. C3 anterolisthesis by 5.4 mm. MR/MR head wo con* [id number] IMPRESSION: 1. No acute infarct or hemorrhage. 2. Mild atrophy with moderate to severe small vessel ischemic changes bilatera lly. 3. Minimal small vessel ischemic disease in the LEFT valeria.
== END 2020-08-15 11:00 | disposition home or self-care (01) ==
LOC: RADSHAW 11:00
PROVIDERS: PCP Family Medicine; Visit Provider Specialist
DX: F03.90 Unspecified dementia, unspecified severity, without behavioral disturbance, psychotic disturbance, mood disturbance, and anxiety (principal); G31.9 Degenerative disease of nervous system, unspecified; I67.82 Cerebral ischemia
CPT/HCPCS: 70551